=== PATIENT | female | born 1960 | race Caucasian/White ===

== ENCOUNTER 2021-02-18 12:51 | Outpatient (CLI) | payer MEDICAID, SELFPAY ==
--- NOTE | 2021-02-18 13:10 | MM_ITS ---
WS: [id number] BILATERAL SCREENING DIGITAL MAMMOGRAM WITH CAD HISTORY: SCREENING COMPARISON: 10/13/2019 and 10/04/2019 and 11/05/2011 Bilateral CC and MLO views submitted. Computer aided detection analyzed. Breast composition: The breasts are almost entirely fatty. No suspicious masses, microcalcifications or architectural distortion. Benign calcification in the anterior RIGHT breast. Benign lymph node upp er outer quadrant of the LEFT breast. MM/[place] [id number] IMPRESSION: BI-RADS: 2-Benign FOLLOW UP: 1 Year Follow-up
== END 2021-02-18 12:52 | disposition home or self-care (01) ==
LOC: RADSHAW 12:56
PROVIDERS: PCP Nurse Practitioner Family; Visit Provider Nurse Practitioner Family
DX: Z12.31 Encounter for screening mammogram for malignant neoplasm of breast (principal)
CPT/HCPCS: 77067

== ENCOUNTER 2022-11-27 09:18 | Outpatient (CLI) | payer MEDICAID, SELFPAY ==
--- NOTE | 2022-11-27 09:31 | MM_ITS ---
WS: [id number] BILATERAL SCREENING DIGITAL TOMOSYNTHESIS MAMMOGRAM WITH CAD HISTORY: SCREENING COMPARISON: 02/18/2021, 10/13/2019 Bilateral CC and MLO views with tomosynthesis and synthetic mammography submitted. Computer aided det ection analyzed. Breast composition: There are scattered areas of fibroglandular density. No suspicious masses, microc alcifications or architectural distortion. Stable lymph node upper outer quadrant LEFT breast. IMPRESSION: MM/[place] [id number] BI-RADS: 2-Benign FOLLOW UP: 1 Year Follow-up
== END 2022-11-27 09:19 | disposition home or self-care (01) ==
LOC: RAD 09:19
PROVIDERS: PCP Nurse Practitioner Family; Visit Provider Nurse Practitioner Family
DX: Z12.31 Encounter for screening mammogram for malignant neoplasm of breast (principal)
CPT/HCPCS: 77063; 77067

== ENCOUNTER 2023-12-02 09:27 | Outpatient (CLI) | payer MEDICARE, MEDICAID, SELFPAY ==
--- NOTE | 2023-12-02 09:40 | MM_ITS ---
WS: [id number] BILATERAL SCREENING DIGITAL TOMOSYNTHESIS MAMMOGRAM WITH CAD HISTORY: SCREENING COMPARISON: 11/27/2022, 02/18/2021 Bilateral CC and MLO views with tomosynthesis and synthetic mammography submitted. Computer aided det ection analyzed. Breast composition: The breasts are almost entirely fatty. No suspicious masses, microcalcifications or architectural distortion. Benign scattered calcifications in each breast. Stable lymph node upper outer quadrant LEFT breast. MM/MM scr BI tomosynthesis [id number] IMPRESSION: BI-RADS: 2 - Benign. FOLLOW UP: 1 Year Follow-up
== END 2023-12-02 09:28 | disposition home or self-care (01) ==
LOC: RAD 09:29
PROVIDERS: PCP Nurse Practitioner Family; Visit Provider Nurse Practitioner Family
DX: Z12.31 Encounter for screening mammogram for malignant neoplasm of breast (principal); R92.313 Mammographic fatty tissue density, bilateral breasts; R92.1 Mammographic calcification found on diagnostic imaging of breast
CPT/HCPCS: 77063; 77067

== ENCOUNTER 2024-12-01 21:45 | Inpatient (IN) | payer OTHER, MEDICAID, SELFPAY ==
--- OUTSIDE RECORDS SUMMARY | 2024-11-30 10:40 | XMS_ITS | Encounter Summary ---
Author Organization [facility] Address [address] [place] [address] Care Team Providers Care Regional Education Manager Name Role Phone Antoinette Wheatley MD Primary Care Provider +1- [phone] Reason for Visit * Reason Comments Allergies Seasonal Encounter Details Date Type Department Care Team (Late st Contact Info) Description 11/30/2024 10:40 AM CDT Office Visit [facility] Family Medicine [address] [address] Angela Cooper, [facility] [address] [place] [address] Pleurisy (Primary Dx) Social History Tobacco Use Types Packs/Day Years Used Date Smoking Tobacco: Former Cigarettes 0.5 15 Q uit: 05/25/2024 Smokeless Tobacco: Former Chew Quit: 02/16/2007 Tobacco Cessation:Counseling Given: No Alcohol Use Standard Drinks/Week Comments No 0 (1 standard drink = 0.6 oz pur e alcohol) Feeling Safe Answer Date Recorded Are you in a relationship wi th someone who hurts you emotionally and/or physically? 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 Gender Identity Not on file Sexual Orientation Not on file documented as of this encounter Last Filed Vital Signs Vital Sign Reading Time Taken Comments Blood Pressure 122/68 11/30/2024 10:37 AM CDT Pulse 102 11/30/2024 10:44 AM CDT Temperature 36.7 C (98.1 F) 11/30/2024 10:37 AM CDT Respiratory Rate 18 11/30/2024 10:37 AM CDT Oxygen Saturation 98% 11/30/2024 10:37 AM CDT Inhaled Oxygen Concentration - - Weight 73.1 kg (161 lb 3.2 oz) 11/30/2024 10:37 AM CDT Height 152.4 cm (5') 11/30/2024 10:37 AM CDT Body Mass Index 31.48 11/30/2024 10:37 AM CDT documented in this encounter Progress Notes * Angela Cooper FNP - 11/30/2024 11:12 AM CDT Images from the original note were not included. HISTORY OF PRESENT ILLNESS: Chief Complaint Patient presents with Allergies Seasonal Subjective History of Present Illness The patient is a 64-year-old female who presents to the clinic for follow-up. She reports experiencing fatigue and pain, described as a stabbing sensation extending from her chest to her back. This discomfort began after exposure to a plant identified as PISTIS [employer] using a scanner. She did not burn the plant but noticed its strong aroma and did not wear gloves while handling it. Symptoms began suddenly, occurring a day after exposure. She recalls an incident at [employer] where she had to pause after walking only 25 steps due to pain and shortness of breath. Additionally, she felt extremely fatigued after unloading her car, necessitating a two-hour rest period. She has been monitoring her heart rate and step count. She is not experiencing any coughing but notes an increase in nasal discharge. She has been using allergy medication and an inhaler, even resorting to the latter during her visit to the park. REVIEW OF SYSTEMS Review of Systems Constitutional: Negative for activity change, appetite change and fatigue. Respiratory: Positive for chest tightness. Negative for cough, shortness of breath and wheezing. Cardiovascular: Negative for chest pain and palpitations. Gastrointestinal: Negative for abdominal pain, constipation, diarrhea, nausea and vomiting. Musculoskeletal: Negative for arthralgias and myalgias. Skin: Negative for color change. Neurological: Negative for dizziness, weakness, light-headedness and headaches. Psychiatric/Behavioral: Negative for sleep disturbance. Objective PHYSICAL EXAM BP 122/68 Pulse (!) 102 Temp 98.1 ??F (36.7 ??C) (Temporal) Resp 18 Ht 5' (1.524 m) Wt 73.1 kg (161 lb 3.2 oz) SpO2 98% BMI 31.48 kg/m?? Physical Exam Vitals reviewed. Constitutional: General: She is not in acute distress. Appearance: Normal appearance. HENT: Head: Normocephalic and atraumatic. Right Ear: External ear normal. Left Ear: External ear normal. Eyes: Conjunctiva/sclera: Conjunctivae normal. Pulmonary: Effort: Pulmonary effort is normal. Chest: Chest wall: Tenderness (with deep breathing) present. Musculoskeletal: General: Normal range of motion. Cervical back: Neck supple. Skin: General: Skin is warm. Findings: No rash. Neurological: Mental Status: She is alert and oriented to person, place, and time. Psychiatric: Mood and Affect: Mood normal. Behavior: Behavior normal. Results ASSESSMENT and PLAN: Orders Placed This Encounter XR CHEST PA AND LATERAL 2 VW predniSONE (DELTASONE) 20 mg tablet Assessment & Plan 1. Pleurisy: Acute. - Reports sharp pain with deep breaths and recent exposure to hemlock. - Home Theater Specialist on potential cause of pleurisy and plan to reduce inflammation. - Order x-ray to rule out other potential issues. - Prescribe 5-day course of steroids to reduce inflammation. Follow-up - Follow-up appointment mentioned. KENNETH Delaney, 11/30/2024 11:35 AM The author of this note, patient (or authorized customer engagement representative), and all other persons present consent to the audio recording of this visit for charting documentation purposes. This note was automatically generated by a Generative AI technology ([employer]), reviewed, edited, and finalized by KENNETH Delaney. documented in this encounter Plan of Treatment Upcoming Encounters Date Type Department Care Team (Late st Contact Info) Description 04/18/2025 11:30 AM HIGH PRESSURE KETTLE OPERATOR Telemed [facility] [place] [address] [place] [phone] Alejandrina Urbina NP [address] [place] [address] 07/03/2025 2:45 PM CDT Office Visit [facility] Heart and Vascular At [facility] [address] [place] [address] Jaguar Tian MD [address] [facility] [address] [address] [place] [address] documented as of this encounter Results * XR CHEST PA AND LATERAL 2 VW (11/30/2024 12:03 PM CDT) Anatomical Region Laterality Modality Chest Computed Radiogr aphy 11/30/2024 12:0 3 PM CDT Impressions 11/30/2024 3:11 PM CDT IMPRESSION: See below. Exam: XR CHEST PA AND LATERAL 2 VW Date/Time of Exam: 11/30/2024 12:03 PM Reason For Exam: See Diagnosis. Diagnosis: Pleurisy. Prior: 07/19/2024 Findings: The cardiomediastinal silhouette is normal. No acute focal airspace disease, pleural effusion, or pneumothorax. No acute osseous abnormality.Thoracic spondylosis. IMPRESSION: No acute cardiopulmonary disease. Narrative Procedure Note Baljinder Demarco, DO - 11/30/2024 IMPRESSION: See below. Exam: XR CHEST PA AND LATERAL 2 VW Date/Time of Exam: 11/30/2024 12:03 PM Reason For Exam: See Diagnosis. Diagnosis: Pleurisy. Prior: 07/19/2024 Findings: The cardiomediastinal silhouette is normal. No acute focal airspace disease, pleural effusion, or pneumothorax. No acute osseous abnormality.Thoracic spondylosis. IMPRESSION: No acute cardiopulmonary disease. Angela COOPER DIAGNOSTIC IMAGING ORDERABLES Fi nal Result documented in this encounter Visit Diagnoses Diagnosis Pleurisy- Primary Pleurisy without mention of effusion or current tuberculosis Pleurisy Pleurisy without mention of effusion or current tuberculosis documented in this encounter Care Teams Regional Education Manager Relationship Specialty Start Date End Date Antoinette Wheatley MD [address] [phone] PCP - General Family Practice 04/17/23 documented as of this encounter
--- OUTSIDE RECORDS SUMMARY | 2024-11-30 11:55 | XMS_ITS | Encounter Summary ---
Author Organization [facility] Address [address] [place] [address] Care Team Providers Care News Technical Director Name Role Phone Antoinette Wheatley MD Primary Care Provider [phone]- [phone] Encounter Details Date Type Department Care Team (Latest Contact Info) Description 11/30/2024 11:55 AM CDT - 11/30/2024 11:59 PM CDT Hospital Encounter [facility] [address] [place] [address] Angela Cooper, KENNETH [address] [place] [address] Arrived Discharge Disposition: Home or Self Care Social History Tobacco Use Types Packs/Day Years Used Date Smoking Tobacco: Former Cigarettes 0.5 15 Q uit: 05/25/2024 Smokeless Tobacco: Former Chew Quit: 02/16/2007 Alcohol Use Standard Drinks/Week Comments No 0 (1 standard drink = 0.6 oz pur e alcohol) Feeling Safe Answer Date Recorded Are you in a relationship wi th someone who hurts you emotionally and/or physically? 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 10 Tablet 11/30/2024 cetirizine (ZyrTEC) 10 mg tabletIndications: Chronic allergic rhinitis Take 1 tablet by mouth once daily 100 Tablet 3 10/18/2024 azelastine (ASTELIN) 137 mcg/actuation nasal sprayIndications:C hronic rhinitis Administer 2 Sprays in each nostril 2 times daily. 30 mL 11 10/18/2024 albuterol sulfate HFA 90 mcg/actuation aerosol inhalerIndications :Chronic obstructive pulmonary disease, unspecified COPD type (CMS/HCC),Panlobul ar emphysema Take 2 Puffs by inhalation every 6 hours as needed for Shortness of Breath. 18 Gram 5 10/13/2024 mometasone-formote rol (Dulera) 200-5 mcg/actuation inhalerIndications :Chronic obstructive pulmonary disease with acute exacerbation (CMS/HCC) Take 2 Puffs by inhalation 2 times daily. 13 Gram 3 10/07/2024 clobetasoL (TEMOVATE) 0.05 % CreamIndications:V aginal itching Use twice weekly as needed 60 Gram 2 08/11/2024 atorvastatin (LIPITOR) 20 mg tablet Take 1 Tablet (20 mg) by mouth daily. 100 Tablet 3 07/04/2024 aspirin (ECOTRIN EC) 81 mg Tablet, Delayed Release (E.C.) Take 1 Tablet (81 mg) by mouth daily. 90 Tablet 4 07/04/2024 omeprazole (PriLOSEC) 20 mg Capsule, Delayed Release(E.C.)Indic ations:Gastroesoph ageal reflux disease without esophagitis Take 1 Capsule (20 mg) by mouth daily. 100 Capsule 3 03/25/2024 albuterol (PROVENTIL,VENTOLI N) 2.5 mg /3 mL (0.083 %) Solution for NebulizationIndica tions:Chronic obstructive pulmonary disease, unspecified COPD type (CMS/HCC),Panlobul ar emphysema USE 3 ML VIA NEBULIZER EVERY 4 HOURS 540 mL 2 11/04/2023 montelukast (SINGULAIR) 10 mg tabletIndications: Chronic allergic rhinitis TAKE 1 TABLET(10 MG) BY MOUTH DAILY AT BEDTIME 90 Tablet 1 10/20/2023 ibuprofen (MOTRIN) 800 mg tablet TAKE 1 TABLET(800 MG) BY MOUTH EVERY 6 HOURS NEEDED FOR PAIN 60 Tablet 1 02/18/2023 acetaminophen (TYLENOL) 500 mg tablet Take 1,000 mg by mouth every 6 hours as needed. documented as of this encounter Plan of Treatment Upcoming Encounters Date Type Department Care Team (Late st Contact Info) Description 04/18/2025 11:30 AM CALCULATION CLERK Telemed [facility] Tele[facility] - [place] [address] [place] [phone] Alejandrina Urbina NP [address] [place] [address] 07/03/2025 2:45 PM CDT Office Visit [facility] Heart and Vascular At [facility] [address] [place] [phone] Jaguar Tian MD [address] [place] [address] documented as of this encounter Procedures Procedure Name Priority Date/Time Associated Diagnosis Comments XR CHEST PA AND LATERAL 2 VW Routine 11/30/2024 12:03 PM CDT Pleurisy documented in this encounter Results * XR CHEST PA [...] acute cardiopulmonary disease. Narrative Procedure Note Baljinder Demarco DO - 11/30/2024 IMPRESSION: See below. Exam: XR CHEST PA AND LATERAL 2 VW Date/Time of Exam: 11/30/2024 12:03 PM Reason For Exam: See Diagnosis. Diagnosis: Pleurisy. Prior: 07/19/2024 Findings: The cardiomediastinal silhouette is normal. No acute focal airspace disease, pleural effusion, or pneumothorax. No acute osseous abnormality.Thoracic spondylosis. IMPRESSION: No acute cardiopulmonary disease. Angela Cooper B[employer]INGUAL [employer] DIAGNOSTIC IMAGING ORDERABLES Fi nal Result documented in this encounter Visit Diagnoses Diagnosis Pleurisy Pleurisy without mention of effusion or current tuberculosis documented in this encounter Care Teams News Technical Director Relationship Specialty Start Date End Date Antoinette Wheatley MD [address] [phone] PCP - General Family Practice 04/17/23 documented as of this encounter
--- NOTE | 2024-12-01 21:41 | XRR_ITS ---
PROCEDURE INFORMATION: Exam: XR Chest Exam date and time: 12/01/2024 10:01 PM Age: 64 years old Clinical indication: Pain; Chest pressure; Additional info: Cp TECHNIQUE: Imaging protocol: Radiologic exam of the chest. Views: 1 view. COMPARISON: No relevant prior studies available. FINDINGS: Lungs: Unremarkable. No consolidation. Pleural spaces: Unremarkable. No pleural effusion. No pneumothorax. Heart/Mediastinum: Unremarkable. No cardiomegaly. Bones/joints: Unremarkable. XR/XR chest 1V portable [id number] IMPRESSION: No acute findings.
--- NOTE | 2024-12-01 21:47 | ECG_ITS ---
[facility] Test Date: 2024-12-01 Pat Name: Deyanira Colin Department: Room: Gender: Female Hotel Server: : 1960 Requested By: Esdras Collazo Order Number: [id number] Gary MD: Thaddeus Levi M.D. Measurements Intervals [place] Rate: 119 P: 54 KS: 128 QRS: 51 QRSD: 69 T: 51 QT: 289 QTc: 407 Interpretive Statements SINUS TACHYCARDIA MODERATE ST DEPRESSION [0.05+ mV ST DEPRESSION] No previous ECG available for comparison Electronically Signed On 12-03-2024 12:01:43 CDT by Thaddeus Levi M.D. [email or web address]
[2024-12-01 21:51] VITALS: BP 126/55; PULSE 119; RESP 18; TEMP 36.6; O2SAT 98; BMI 30.7
--- OUTSIDE RECORDS SUMMARY | 2024-12-01 21:53 | XMS_ITS | Encounter Summary ---
Author Organization [facility] Address [address] [place] [address] Care Team Providers Care Roller Leveler Name Role Phone Cosmo Hand MD Primary Care Provider [phone] [phone] Reason for Referral * Outpatient Services (Routine) - Closed Specialty Diagnoses / Procedures Referred By Rebecca saldana Referred To Contact Radiology Diagnoses Other screening mammogram Procedures MAMMO DIGITIZED STUDY Diane Payne APRN NO ADDRESS ON FILE [facility] [address] [place] [address] Phone: tel: fax: Referral ID Status Reason Start Date Expiration Date Visits Re quested Visits Authorized [id number] Closed 10/30/2011 10/29/2012 1 1 Encounter Details Date Type Department Care Team (Late st Contact Info) Description 10/30/2011 Ancillary Orders [facility] Family Medicine [place] [address] [facility] [facility] [address] [place] [phone] Diane Payne APRN NO ADDRESS ON FILE Other screening mammogram Social History Tobacco Use Types Packs/Day Years Used Date Smoking Tobacco: Every Day Cigarettes 0.3 20 Smokeless Tobacco: Former Quit: 02/16/2007 Alcohol Use Standard Drinks/Week Comments No 0 (1 standard drink = 0.6 oz pur e alcohol) Comments No Sex and Gender Information Value Date Recorded Sex Assigned at Not on file Legal Sex Female 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 Exam was auto-finalized. Procedure Note Rosalinda Orta, RT - 10/30/2011 Order information only. Exam was auto-finalized. Diane Payne APRN DIAGNOSTIC IMAGIN G ORDERABLES Final Result documented in this encounter Visit Diagnoses Diagnosis Other screening mammogram Other screening mammogram documented in this encounter Care Teams Roller Leveler Relationship Specialty Start Date End Date Cosmo Hand MD [address] [facility] [address] [place] [phone] PCP - General Family Practice 03/27/17 documented as of this encounter
--- OUTSIDE RECORDS SUMMARY | 2024-12-01 21:53 | XMS_ITS | Encounter Summary ---
Author Organization [facility] Address [address] [place] [address] Care Team Providers Care Machine Bookkeeper Name Role Phone Cosmo Hand MD Primary Care Provider [phone] -[phone] Reason for Referral * Outpatient Services (Routine) - Closed Specialty Diagnoses / Procedures Referred By Rebecca saldana Referred To Contact Diagnoses Screening mammogram Procedures MAMMO SCREENING BILAT Jasper Mo Jr., MD [address] [place] [address] Phone: tel: fax: Referral ID Status Reason Start Date Expiration Date Visits Re quested Visits Authorized [id number] Closed 07/18/2010 01/14/2011 1 1 Encounter Details Date Type Department Care Team (Late st Contact Info) Description 07/18/2010 Ancillary Orders [facility] Imaging External Read [address] [place] [phone] Jasper Mo Jr., MD [address] [place] [address] Screening mammogram Social History Tobacco Use Types Packs/Day Years Used Date Smoking Tobacco: Never Assessed Comments Unknown Sex and Gender Information Value Date Recorded Sex Assigned at Not on file 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 This examination was reviewed with the aid of a computer-aided detection system(CAD). The breast tissue density is fatty. No significant new findings since the prior mammogram(s). Procedure Note Caron Fowler MD - 07/19/2010 Bilateral Mammogram Reason for Exam: Screening Comparison: Comparison is made with the prior exam(s) dated 08.09.08 Findings: Bilateral CC and MLO views were obtained. This examination was reviewed with the aid of a computer-aided detectionsystem(CAD). The breast tissue density is fatty. No significant new findings since the prior mammogram(s). Jasper Mo Jr., MD MAMMO ORDERABLES Final Result documented in this encounter Visit Diagnoses Diagnosis Screening mammogram Other screening mammogram documented in this encounter Care Teams Machine Bookkeeper Relationship Specialty Start Date End Date Cosmo Hand MD [address] [phone] PCP - General Family Practice 03/27/17 documented as of this encounter
--- OUTSIDE RECORDS SUMMARY | 2024-12-01 21:53 | XMS_ITS | Encounter Summary ---
Author Organization [facility] Address [address] [place] [address] Care Team Providers Care Receiving Worker Name Role Phone Cosmo Hand MD Primary Care Provider [phone] [phone] Reason for Referral * Outpatient Services (Routine) - Closed Specialty Diagnoses / Procedures Referred By Rebecca saldana Referred To Contact Radiology Diagnoses Other screening mammogram Procedures MAMMO DIGITIZED STUDY Diane Payne APRN NO ADDRESS ON FILE [facility] [address] [place] [address] Phone: tel: fax: Referral ID Status Reason Start Date Expiration Date Visits Re quested Visits Authorized [id number] Closed 10/30/2011 10/29/2012 1 1 Encounter Details Date Type Department Care Team (Late st Contact Info) Description 10/30/2011 Ancillary Orders [facility] Family Medicine [place] [address] [facility] [address] [place] [phone] Diane Payne APRN NO ADDRESS ON FILE [...] on file Legal Sex Female 6:26 AM OFFICE MESSENGER Gender Identity Not on file Sexual Orientation Not on file Occupation Industry Job Start Date Job End Date Not on file Not on file Not on file Not on file documented as of this encounter Plan of Treatment Not on file documented as of this encounter Results * MAMMO DIGITIZED STUDY (07/17/2010 4:17 PM CDT) Narrative Rosalinda Orta, RT - 10/30/2011 4:17 PM CDT Order information only. Exam was auto-finalized. Procedure Note Rosalinda Orta, RT - 10/30/2011 Order information only. Exam was auto-finalized. Diane Payne APRN DIAGNOSTIC IMAGIN G ORDERABLES Final Result documented in this encounter Visit Diagnoses Diagnosis Other screening mammogram Other screening mammogram documented in this encounter Care Teams Receiving Worker Relationship Specialty Start Date End Date Cosmo Hand MD [address] [phone] PCP - General Family Practice 03/27/17 documented as of this encounter
--- OUTSIDE RECORDS SUMMARY | 2024-12-01 21:53 | XMS_ITS | Clinical Summary ---
[facility] Address [address] [place] [address] Care Team Providers Care Supervisor Rubber Covering Name Role Phone Antoinette Wheatley MD Primary Care Provider Allergies Active Allergy Reactions Criticality Noted Date Comments Amoxicillin Other (See Comments) 03/03/2011 Causes illness, Amoxicillin-Pot Clavulanate Diarrhea,Nausea and Vomiting Low 03/03/2011 Sulfamethoxazole-Trimet hoprim Rash Low 11/03/2016 Medications acetaminophen (TYLENOL) 500 mg tablet Take 1,000 mg by mouth every 6 hours as needed. Active ibuprofen (MOTRIN) 800 mg tablet TAKE 1 TABLET(800 MG) BY MOUTH EVERY 6 HOURS NEEDED FOR PAIN 60 Tablet 1 4 Active montelukast (SINGULAIR) 10 mg tabletIndications :Chronic allergic rhinitis TAKE 1 TABLET(10 MG) BY MOUTH DAILY AT BEDTIME 90 Tablet 1 4 Active albuterol (PROVENTIL,VENTOL IN) 2.5 mg /3 mL (0.083 %) Solution for NebulizationIndic ations:Chronic obstructive pulmonary disease, unspecified COPD type (CMS/HCC),Panlobu lar emphysema USE 3 ML VIA NEBULIZER EVERY 4 HOURS 540 mL 2 4 Active omeprazole (PriLOSEC) 20 mg Capsule, Delayed Release(E.C.)Rama cations:Gastroeso phageal reflux disease without esophagitis Take 1 Capsule (20 mg) by mouth daily. 100 Capsule 3 5 Active atorvastatin (LIPITOR) 20 mg tablet Take 1 Tablet (20 mg) by mouth daily. 100 Tablet 3 5 Active aspirin (ECOTRIN EC) 81 mg Tablet, Delayed Release (E.C.) Take 1 Tablet (81 mg) by mouth daily. 90 Tablet 4 5 Active clobetasoL (TEMOVATE) 0.05 % CreamIndications: Vaginal itching Use twice weekly as needed 60 Gram 2 5 Active mometasone-formot ventura (Dulera) 200-5 mcg/actuation inhalerIndication s:Chronic obstructive pulmonary disease with acute exacerbation (CMS/HCC) Take 2 Puffs by inhalation 2 times daily. 13 Gram 3 5 Active albuterol sulfate HFA 90 mcg/actuation aerosol inhalerIndication s:Chronic obstructive pulmonary disease, unspecified COPD type (CMS/HCC),Panlobu lar emphysema Take 2 Puffs by inhalation every 6 hours as needed for Shortness of Breath. 18 Gram 5 5 Active cetirizine (ZyrTEC) 10 mg tabletIndications :Chronic allergic rhinitis Take 1 tablet by mouth once daily 100 Tablet 3 5 Active azelastine (ASTELIN) 137 mcg/actuation nasal sprayIndications: Chronic rhinitis Administer 2 Sprays in each nostril 2 times daily. 30 mL 11 5 Active predniSONE (DELTASONE) 20 mg tabletIndications :Pleurisy Take 2 Tablets (40 mg) by mouth daily for 5 days. 10 Tablet 5 12/06/19 25 Active Active Problems Problem Noted Date Diagnosed Date Nonrheumatic aortic valve stenosis 07/04/2024 S/P carpal tunnel release, right wrist 8 Bilateral carpal tunnel syndrome 05/21/2017 Hypothyroidism 05/04/2017 Tooth decay 04/13/2016 History of abscessed tooth 04/13/2016 Chronic headache 04/13/2016 Chronic pansinusitis 04/09/2016 Tobacco use 01/09/2015 Dental disease 06/09/2012 Hypertrophy of nasal turbinates 06/09/2012 Chronic rhinitis 06/09/2012 Acute meniscal tear of knee 10/30/2011 Carpal tunnel syndrome 04/09/2011 GERD (gastroesophageal reflux disease) 2 COPD (chronic obstructive pulmonary disease) Encounters Date Type Department Care Team Description 11/30/2024 11:55 AM CDT - 11/30/2024 11:59 PM CDT Hospital Encounter [facility] [address] [facility] [address] [place] [address] Angela Cooper FNP Arrived Discharge Disposition: Home or Self Care 11/30/2024 10:40 AM CDT Office Visit [facility] [place] [address] [facility] [address] [place] [address] [place] [address] Angela Cooper FNP Pleurisy (Primary Dx) 10/31/2024 Results Follow-Up [facility] [place] [address] [place] [address] [place] [address] Angela Cooper FNP XR DEXA BONE DENSITY AXIAL 1 OR MORE SITES 10/24/2024 11:56 AM CDT - 10/24/2024 11:59 PM CDT Hospital Encounter [facility] [address] [place] [address] Angela Cooper FNP Discharge Disposition: Home or Self Care 10/18/2024 11:30 AM CDT Telemed [facility] - [place] 100 [facility] [address] [place] [address] Alejandrina Urbina NP Chronic bronchitis, unspecified chronic bronchitis type (CMS/HCC) (Primary Dx); Tobacco use disorder, moderate, in early remission; Chronic rhinitis; Post-nasal drainage 10/15/2024 Refill [facility] [place] [address] [place] [address] Angela Cooper FNP Chronic allergic rhinitis 10/13/2024 Orders Only [facility] [place] [address] [facility] [address] [place] [address] [place] [address] Angela Cooper FNP Chronic obstructive pulmonary disease, unspecified COPD type (CMS/HCC); Panlobular emphysema (CMS/HCC) 10/10/2024 Telephone [facility] [address] [place] [address] [place] [address] Angela Cooper FNP Medication Problem 10/07/2024 11:20 AM CDT Office Visit [address] [place] [address] Angela Cooper FNP Encounter for wellness examination (Primary Dx); Chronic obstructive pulmonary disease with acute exacerbation (CMS/HCC); Chronic obstructive pulmonary disease, unspecified COPD type (CMS/HCC); Panlobular emphysema (CMS/HCC); Asymptomatic menopausal state; Tobacco dependence due to cigarettes; Encounter for screening mammogram for malignant neoplasm of breast 10/07/[address] [address] Angela Cooper FNP Medication Assistance 09/21/2024 External Device Data [facility]CTION Provider, Abstract 09/20/2024 External Device Data [facility] Provider, Abstract 09/20/2024 External Device Data [facility] [facility] Provider, Abstract 09/14/2024 Telephone [facility] - [facility] [address] [place] [phone] Jaguar Tian MD Results 09/12/2024 11:32 AM CDT - 09/12/2024 11:59 PM CDT Hospital Encounter [facility] [address] [place] [phone] Jaguar Tian MD Discharge Disposition: Home or Self Care from Last 3 Months Immunizations Immunization Administration Dates Next Due (ADACEL/BOOSTRIX)(10 YR UP) TDAP VACCINE, 0.5ML, IM 05/05/2014 (PFIZER)(12 YR UP) COVID-19 VACCINE - EMERGENCY USE AUTHORIZATION, MRNA, [id number](PF) 30 MCG/0.3 ML IM SUSP 05/31/2020,05/10/2020 (PNEUMOVAX 23)(50 YRS UP) PN EUMOCOCCAL POLYSACCHARIDE (PPV23) 0.5 ML, IM 11/03/2003 INFLUENZA VACCINE HIGH DOSE TRIVALENT SPLIT VIRUS, (65 YR UP), 0.5ML (PF), IM 12/24/2023 INFLUENZA VACCINE QUADRIVALE NT 3 YR UP PF IM 12/26/2022,01/15/2016,12/22/2014,11/14 INFLUENZA VACCINE QUADRIVALE NT 6 MOS UP IM 02/19/2022,04/06/2019 INFLUENZA VACCINE QUADRIVALE NT 6 MOS UP PF IM 11/29/2020,01/05/2020 Influenza Seasonal Unspecifi ed Formulation IM 12/26/2022,02/19/2022,11/29/2020,01/04,04/06/2019,03/02/2018,01/16/2018 ,01/15/2016,12/22/2014,11/14/2013,12/17,11/24/2002,11/18/2001 Influenza Vaccine Split 3+ Yrs PF IM 12/28/2012, 12/05/2011 PNEUMOVAX (PPSV23) pneumococ yonas polysaccharide 23-valent Vaccine 11/03/2003 Zoster Vaccine Live SQ 09/24/2011 Family History * Patient is adopted Medical History Relation Name Comments No Known Problems Daughter Unknown Father UNKNOWN Unknown Maternal Grandfather UNKNOWN Unknown Maternal Grandmother UNKNOWN Other Mother UNKNOWN Adopted no fami ly history Unknown Mother UNKNOWN Unknown Paternal Grandfather UNKNOWN Unknown Paternal Grandmother UNKNOWN Breast Cancer Neg Hx Colon Cancer Neg Hx Relation Name Status Comments Daughter Alive Father UNKNOWN Maternal Grandfather UNKNOWN Maternal Grandmother UNKNOWN Mother UNKNOWN Paternal Grandfather UNKNOWN Paternal Grandmother UNKNOWN Sister UNKNOWN Social History Tobacco Use Types Packs/Day Years [...] on file Legal Sex Female 8:04 AM SLITTER PROCESSED FILM Gender Identity Not on file Sexual Orientation Not on file Last Filed Vital Signs Vital Sign Reading [...] Mass Index 31.48 11/30/2024 10:37 AM CDT Plan of Treatment Upcoming Encounters Date Type Department Care Team (Late st Contact Info) Description 04/18/2025 11:30 AM SLITTER PROCESSED FILM Telemed [facility] - [place] [employer] [address] [place] [phone] Alejandrina Urbina NP [address] [place] [address] 07/03/2025 2:45 PM CDT Office Visit [facility] At [facility] [address] [facility] [address] [place] [address] Jaguar Tian MD [address] [facility] [address] [place] [address] Health Maintenance Due Date Last Done Comments Pre-Diabetes and Diabetes Screening 1960 FIT/FOBT Q 1 YEAR (AUTO ORDER) 02/25/1976 COLORECTAL CANCER SCREENING (AUTO ORDER) 2003 COLORECTAL SCREENING 2003 FIT/FOBT Q 1 year 2003 Flex Sig/CT Colonography Q 5 years 2003 FLEX SIG/CT COLONOGRAPHY Q 5 YEARS (AUTO ORDER) 12/27/2003 12/26/1998, 12/26/1998 PNEUMOCOCCAL VACCINE 50+ YEA RS (2 of 2 - PCV) 11/02/2004 11/03/2003, 11/03/2003 RSV VACCINE (60+ or ) (1 - Risk 50-74 years 1-dose series) 02/25/2008 ZOSTER VACCINE (2 of 3) 11/19/2011 09/24/2011 DTAP/TDAP/TD VACCINES (2 - T d or Tdap) 05/05/2024 05/05/2014 INFLUENZA VACCINE (#1) 2024 4, 12/26/2022, 12/26/2022, Additional history exists COVID-19 Vaccine (3 - 2024-2 6 season) 2024 05/31/2020, 05/10/2020 BREAST CANCER SCREENING 12/01/2024 12/02/19 24, 02/18/2021, 10/13/2019, Additional history exists Colorectal Cancer Screening (AUTO ORDER) 06/01/2027 Colorectal Cancer Screening 06/01/2027 FIT-DNA Q 3 years 06/01/2027 05/31/2024, 01/20/2022 FIT/ DNA Q 3 YEARS (AUTO ORDER) 06/01/2027 05/31/2024, 05/31/2024, 01/20/2022, Additional history exists OSTEOPOROSIS SCREENING 10/24/2029 10/24/2024 [place] Preventative Visit/Annual Wellness Visit Completed 10/07/2024, 10/08/2023 Procedures Procedure Name Priority Date/Time Associated Diagnosis Comments XR CHEST PA AND LATERAL 2 VW Routine 11/30/2024 12:03 PM CDT Pleurisy XR DEXA BONE DENSITY AXIAL 1 OR MORE SITES Routine 10/24/2024 12:24 PM CDT Asymptomatic menopausal state ECHO COMPLETE Routine 09/12/2024 12:24 PM CDT Aortic stenosis COLON CANCER SCREEN, STOOL DNA Routine 05/31/2024 12:41 PM CDT Encounter for colorectal cancer screening MAMMO 3D JONO SCREEN BILAT W OR WO CAD Routine 12/02/2023 Screening mammogram, encounter for from Last 3 Months or Most Recently Relevant to Health Maintenance Results * XR CHEST PA AND LATERAL [...] IMPRESSION: No acute cardiopulmonary disease. Angela Cooper [facility] ORDERABLES Fi nal Result * XR DEXA BONE DENSITY AXIAL 1 OR MORE SITES (10/24/2024 12:24 PM CDT) T-SCORE HIP (LEFT) -0.30 -1.0 - 1.0 INTERFACE SYSTEM T-SCORE SPINE 1.00 -1.0 - 1.0 INTER FACE SYSTEM Anatomical Region Laterality Modality Digital Radiogra phy, Mammography 10/24/2024 12:2 5 PM CDT Impressions 10/24/2024 12:40 PM CDT IMPRESSION: Osteopenia (T-score between -1.0 and -2.5). NOF guidelines recommend consideration of FDA-approved medical therapies in patients with FRAX determined 10-year probabilities of hip/major osteoporosis-related fractures equal or greater than 3%/20% respectively. Consider assessing fracture risk using the FRAX analysis tool for guidance of clinical management available online at www.shef.ac.uk/FRAX/. Enter [employer] for Select DXA and the Femoral Neck BMD value. Narrative 10/24/2024 12:40 PM CDT DEXA Evaluation of the Lumbar Spine and Left Proximal Femur DATE/TIME OF EXAM: 10/24/2024 12:24 PM REASON FOR EXAM: See Diagnosis DIAGNOSIS: Asymptomatic menopausal state The following absorptiometry data were obtained. The quality of this examination is acceptable with regards to count density, processed images, data display and lack of important artifacts (including but not limited to motion and attenuation artifacts). RESULTS: LUMBAR SPINE: Levels: L1-L4 BMD (g/cm2): 1.157 T-score: 1.0 Z-score: 2.9 (Please note: If bilateral femur evaluation was performed, only the side with lowest T-score is reported) FEMORAL NECK: BMD (g/cm2): 0.706 T-score: -1.3 Z-score: 0.3 TOTAL HIP: BMD (g/cm2): 0.910 T-score: -0.3 Z-score: 1.1 Procedure Note Curtis Whitney MD - 10/24/2024 DEXA Evaluation of the Lumbar Spine and Left Proximal Femur DATE/TIME OF EXAM: 10/24/2024 12:24 PM REASON FOR EXAM: See Diagnosis DIAGNOSIS: Asymptomatic menopausal state The following absorptiometry data were obtained. The quality of this examination is acceptable with regards to count density, processed images, data display and lack of important artifacts (including but not limited to motion and attenuation artifacts). RESULTS: LUMBAR SPINE: Levels: L1-L4 BMD (g/cm2): 1.157 T-score: 1.0 Z-score: 2.9 (Please note: If bilateral femur evaluation was performed, only the side with lowest T-score is reported) FEMORAL NECK: BMD (g/cm2): 0.706 T-score: -1.3 Z-score: 0.3 TOTAL HIP: BMD (g/cm2): 0.910 T-score: -0.3 Z-score: 1.1 IMPRESSION: Osteopenia (T-score between -1.0 and -2.5). NOF guidelines recommend consideration of FDA-approved medical therapies in patients with FRAX determined 10-year probabilities of hip/major osteoporosis-related fractures equal or greater than 3%/20% respectively. Consider assessing fracture risk using the FRAX analysis tool for guidance of clinical management available online at www.shef.ac.uk/FRAX/. Enter [employer] for Select DXA and the Femoral Neck BMD value. Angela Cooper [facility] ORDERABLES Fi nal Result * ECHO COMPLETE - CONTRAST AND STRAIN IF INDICATED (09/12/2024 12:24 PM CDT) [facility] Signature EJECTION FRACTION 60 INTERFACE SYSTEM 09/12/2024 11:4 9 AM CDT Narrative INTERFACE SYSTEM - 09/13/2024 9:15 AM CDT [facility] Radiology Services - Echocardiology [address] [address] Transthoracic Echocardiography Patient: Deyanira Colin Study ID: [id number] Gender: F : 1960 Age: 64 Room: [facility] Study Date: 09/12/2024 Pt Status: Study Time: 11:49:14 AM CSN #: [id number] Ordering:Jaguar Tian Rail Operator: Julia Diallo Summary and Conclusion: - Left ventricle: Not well visualized. The cavity size is normal. Wall thickness is upper normal to mildly increased. Global systolic function is normal. For Epic reporting: the left ventricular ejection fraction is 60% by visual assessment. Images are inadequate for LV wall motion assessment. Cannot assess LV diastolic function. - Right ventricle: The cavity size is normal. Systolic function is normal. - Aortic valve: Not well visualized. The leaflets are thickened and calcified. There is probably severe stenosis. The peak systolic velocity is 362cm/sec. The mean systolic gradient is 31mm Hg. The valve area is 0.75cm^2. The ratio of LVOT to aortic valve peak velocity is 0.24. - Tricuspid valve: Not well visualized. - Pulmonic valve: Not well visualized. Comparison: Compared to the previous study, aortic stenosishas worsened. Procedure information: Study status: Routine. Procedure: A transthoracic echocardiogram was performed. Image quality was suboptimal. Scanning was performed from the parasternal, apical, subcostal, and suprasternal notch acoustic windows. Study components: M-mode, 2D, complete spectral Doppler, and color Doppler. Height: 152.4cm. Height: 60in. Weight: 70.7kg. Weight: 155.9lb. BMI: 30.4kg/m^2. BSA: 1.76m^2. Study date: 09/12/2024. Study time: 11:49 AM. Cardiac Anatomy: LEFT VENTRICLE: Not well visualized. The cavity size is normal. Wall thickness is upper normal to mildly increased. Global systolic function is normal. For Epic reporting: the left ventricular ejection fraction is 60% by visual assessment. Images are inadequate for LV wall motion assessment. Cannot assess LV diastolic function. RIGHT VENTRICLE: The cavity size is normal. Systolic function is normal. LEFT ATRIUM: The atrium is normal in size. RIGHT ATRIUM: The atrium is normal in size. ATRIAL SEPTUM: Not well visualized. AORTIC VALVE: Not well visualized. The leaflets are thickened and calcified. Mobility is restricted. There is probably severe stenosis. There is no significant regurgitation. MITRAL VALVE: Mobility is not restricted. No evidence for prolapse. There is no evidence for stenosis. There is trivial regurgitation. TRICUSPID VALVE: Not well visualized. Mobility is unrestricted. There is no evidence for stenosis. There is trace regurgitation. PULMONIC VALVE: Not well visualized. There is no evidence for stenosis. There is no significant regurgitation. PERICARDIUM: There is no pericardial effusion. AORTA: Aortic root: The root is not dilated. Measurements Left ventricle Value Left atrium Value FS, LAX 30 % Vol, S 35 ml FS 30 % Vol/bsa, S 20 ml/m^2 EDV 50 ml ESV 21 ml Aortic valve Value EF 58 % Peak v, S 362 cm/sec EDV/bsa 28 ml/m^2 Mean v, S 260 cm/sec ESV/bsa 12 ml/m^2 VTI, S 83.0 cm EF, 1-p A2C 58 % Mean grad, S 31 mm Hg EF, 1-p A4C 55 % Peak grad, S 52 mm Hg EDV, 2-p 61 ml LVOT/AV, VTI ratio 0.22 ESV, 2-p 25 ml SALOMÓN, VTI 0.75 cm^2 EF, 2-p 59 % SALOMÓN/bsa, VTI 0.43 cm^2/m^2 EDV/bsa, 2-p 34 ml/m^2 LVOT/AV, Vpeak ratio 0.24 ESV/bsa, 2-p 14 ml/m^2 EDV, MM Teich. 50 ml Mitral valve Value EF, MM Teich. 58 % Peak E/A ratio 0.83 EDV/bsa, MM Teich. 28 ml/m^2 EF, MM on 2D Teich. 58 % Tricuspid valve Value E/e', lat shashi, TDI 15 TR peak v 254 cm/sec E/e', med shashi, TDI 14 Peak RV-RA grad, S 26 mm Hg E/e', avg, TDI 14 Descending aorta Value LVOT Value Prox Janes diam 1.4 cm Diam, S 2.1 cm Area 3.5 cm^2 Inferior vena cava Value VTI, S 18.0 cm Prox diam, exp 1.4 cm SV 59 ml SV/bsa 34 ml/m^2 Other Value Legend: (L) and (H) ramiro values outside specified reference range. Prepared and Electronically Authenticated Domo Lezama MD Confirmed 09/13/2024 09:14 Procedure Note Domo Lezama MD - 09/13/2024 [facility] Radiology Services - Echocardiology [address] [place] [id number] Transthoracic Echocardiography Patient: Deyanira Colin Study ID:[id number] Gender: F : 1960 Age: 64 Room: [facility] Study Date: 09/12/2024 Pt Status: Study Time: 11:49:14 AM CSN #: [id number] Ordering:Jaguar Tian Rail Operator: Julia Diallo Summary and Conclusion: - Left ventricle: Not well visualized. The cavity size is normal. Wall thickness is upper normal to mildly increased. Global systolic functionis normal. For Epic reporting: the left ventricular ejection fraction is60% by visual assessment. Images are inadequate for LV wall motionassessment. Cannot assess LV diastolic function. - Right ventricle: The cavity size is normal. Systolic function isnormal. - Aortic valve: Not well visualized. The leaflets are thickened andcalcified. There is probably severe stenosis. The peak systolic velocity [id number]. The mean systolic gradient is 31mm Hg. The valve area is 0.75cm^2. Theratio of LVOT to aortic valve peak velocity is 0.24. - Tricuspid valve: Not well visualized. - Pulmonic valve: Not well visualized. Comparison: Compared to the previous study, aortic stenosishasworsened. Procedure information: Study status: Routine. Procedure: Atransthoracic echocardiogram was performed. Image quality was suboptimal. Scanning was performed from the parasternal, apical, subcostal, and suprasternalnotch acoustic windows. Study components: M-mode, 2D, completespectral Doppler, and color Doppler. Height: 152.4cm. Height: 60in. Weight: 70.7kg. Weight: 155.9lb. BMI: 30.4kg/m^2. BSA: 1.76m^2. Studydate: 09/12/2024. Study time: 11:49 AM. Cardiac Anatomy: LEFT VENTRICLE: Not well visualized. The cavity size is normal. Wall thickness is upper normal to mildly increased. Global systolic functionis normal. For Epic reporting: the left ventricular ejection fraction is 60%by visual assessment. Images are inadequate for LV wall motion assessment.Cannot assess LV diastolic function. RIGHT VENTRICLE: The cavity size is normal. Systolic function isnormal. LEFT ATRIUM: The atrium is normal in size. RIGHT ATRIUM: The atrium is normal in size. ATRIAL SEPTUM: Not well visualized. AORTIC VALVE: Not well visualized. The leaflets are thickened andcalcified. Mobility is restricted. There is probably severe stenosis. There is no significant regurgitation. MITRAL VALVE: Mobility is not restricted. No evidence for prolapse.There is no evidence for stenosis. There is trivial regurgitation. TRICUSPID VALVE: Not well visualized. Mobility is unrestricted. There isno evidence for stenosis. There is trace regurgitation. PULMONIC VALVE: Not well visualized. There is no evidence forstenosis. There is no significant regurgitation. PERICARDIUM: There is no pericardial effusion. AORTA: Aortic root: The root is not dilated. Measurements Left ventricle Value Left atrium Value FS, LAX 30 % Vol, S 35 ml FS 30 % Vol/bsa, S 20 ml/m^2 EDV 50 ml ESV 21 ml Aortic valve Value EF 58 % Peak v, S 362 cm/sec EDV/bsa 28 ml/m^2 Mean v, S 260 cm/sec ESV/bsa 12 ml/m^2 VTI, S 83.0 cm EF, 1-p A2C 58 % Mean grad, S 31 mm Hg EF, 1-p A4C 55 % Peak grad, S 52 mm Hg EDV, 2-p 61 ml LVOT/AV, VTI ratio 0.22 ESV, 2-p 25 ml SALOMÓN, VTI 0.75 cm^2 EF, 2-p 59 % SALOMÓN/bsa, VTI 0.43 cm^2/m^2 EDV/bsa, 2-p 34 ml/m^2 LVOT/AV, Vpeak ratio 0.24 ESV/bsa, 2-p 14 ml/m^2 EDV, MM Teich. 50 ml Mitral valve Value EF, MM Teich. 58 % Peak E/A ratio 0.83 EDV/bsa, MM Teich. 28 ml/m^2 EF, MM on 2D Teich. 58 % Tricuspid valve Value E/e', lat shashi, TDI 15 TR peak v 254 cm/sec E/e', med shashi, TDI 14 Peak RV-RA grad, S 26 mm Hg E/e', avg, TDI 14 Descending aorta Value LVOT Value Prox Janes diam 1.4 cm Diam, S 2.1 cm Area 3.5 cm^2 Inferior vena cava Value VTI, S 18.0 cm Prox diam, exp 1.4 cm SV 59 ml SV/bsa 34 ml/m^2 Other Value Legend: (L) and (H) ramiro values outside specified reference range. Prepared and Electronically Authenticated Domo Lise JONES Confirmed 09/13/2024 09:14 Jaguar Tian MD ORDERABLES Final Result INTERFACE SYSTEM Refer to clinic/hospital department * (ABNORMAL) COLON CANCER SCREEN, STOOL DNA (05/31/2024 12:41 PM CDT) COLOGUARD RESULT Positive( A) Negative [employer] Comment: The Cologuard (TM) test was performed on this specimen. POSITIVE TEST RESULT. A positive Cologuard result should be followed with a colonoscopy or visual examination of the colon. The normal value (reference range) for this assay is negative. TEST DESCRIPTION: Composite algorithmic analysis of stool DNA-biomarkers with hemoglobin immunoassay. Quantitative values of individual biomarkers are not reportable and are not associated with individual biomarker result reference ranges. Cologuard is intended for colorectal cancer screening of adults of either sex, 45 years or older, who are at average-risk for colorectal cancer (CRC). Cologuard has been approved for use by the U.S. FDA. The performance of Cologuard was established in a cross sectional study of average-risk adults aged 50-84. Cologuard performance in patients ages 45 to 49 years was estimated by sub-group analysis of near-age groups. Colonoscopies performed for a positive result may find as the most clinically significant lesion: colorectal cancer [4.0%], advanced adenoma (including sessile serrated polyps greater than or equal to 1cm diameter) [20%] or non- advanced adenoma [31%]; or no colorectal neoplasia [45%]. These estimates are derived from a prospective cross-sectional screening study of 10,000 individuals at average risk for colorectal cancer who were screened with both Cologuard and colonoscopy. (Chadwick Rae. et al, N Engl J Med 2014;370(14):1040-4993.) Cologuard may produce a false negative or false positive result (no colorectal cancer or precancerous polyp present at colonoscopy follow up). A negative Cologuard test result does not guarantee the absence of CRC or advanced adenoma (pre-cancer). The current Cologuard screening interval is every 3 years. ([place] [employer] and U.S. Multi-Society Task Force). Cologuard performance data in a 10,000 patient pivotal study using colonoscopy as the reference method can be accessed at the following location: www.CUPP Computing/results. Additional description of the Cologuard test process, warnings and precautions can be found at [email or web address]. Stool STOOL SPECIMEN / Unknown 05/31/2024 12:41 PM CDT 06/01/2024 3:10 PM CDT us Angela Cooper IT TECHNICAL SUPPORT SPECIALIST BODY FLUIDS AND STOOLS Final Res ult [employer] CLIA # [id number] [address], [address] [place] [address] * MAMMO 3D JONO SCREEN BILAT W OR WO CAD (12/02/2023) Anatomical Region Laterality Modality Breast Bilateral Mammography Angela Cooper IT TECHNICAL SUPPORT SPECIALIST MAMMO ORDERABLES Edited Result - Final from Last 3 Months or Most Recently Relevant to Health Maintenance Insurance MEDICAID [place] DUAL COMPLETE HMO [facility] [id number] Care Teams Supervisor Rubber Covering Relationship Specialty Start Date End Date Antoinette Wheatley MD [address] [facility] [address] [place] [phone] PCP - General Family Practice 04/17/23
--- OUTSIDE RECORDS SUMMARY | 2024-12-01 21:54 | XMS_ITS | Encounter Summary ---
Author Organization [facility] Address [address] [place] [address] Care Team Providers Care Special Education Teaching Assistant Name Role Phone Cosmo Hand MD Primary Care Provider +1 -[phone] Encounter Details Date Type Department Care Team (Latest Contact Info) Description 07/07/2002 Outpatient Historical [facility] Jasper Mo Jr., MD [facility] [place] [address] Periapical abscess (Primary Dx); ACUTE SINUSITIS NOS; CHRONIC AIRWAY OBSTRUCTION NEC (CMS/HCC); OSTEOARTHROS NOS-UNSPEC Social History Tobacco Use Types Packs/Day Years Used Date Smoking Tobacco: Never Assessed Comments Unknown Sex and Gender Information Value Date Recorded Sex Assigned at Not on file Legal 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 Gender Identity Not on file Sexual Orientation Not on file documented as of this encounter Plan of Treatment Not on file documented as of this encounter Visit Diagnoses Diagnosis Periapical abscess- Primary Periapical abscess without sinus Acute sinusitis, unspecified Chronic airway obstruction, not elsewhere classified (CMS/HCC) Chronic airway obstruction, not elsewhere classified Osteoarthrosis, unspecified whether generalized or localized, unspecified site documented in this encounter Care Teams Special Education Teaching Assistant Relationship Specialty Start Date End Date Cosmo Hand MD [address] [facility] [address] [place] [address] PCP - General Family Practice 03/27/17 documented as of this encounter
--- OUTSIDE RECORDS SUMMARY | 2024-12-01 21:54 | XMS_ITS | Encounter Summary ---
Author Organization [facility] Address [address] 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
--- OUTSIDE RECORDS SUMMARY | 2024-12-01 21:54 | XMS_ITS | Encounter Summary ---
Author Organization [facility] Address [address] [place] [address] Care Team Providers Care Senior Credit Officer Name Role Phone Cosmo Hand MD Primary Care Provider +1 -[phone] Encounter Details Date Type Department Care Team (Latest Contact Info) Description 09/13/2001 Outpatient Historical [facility] Jasper Mo Jr., MD [address] [place] [address] GENERAL OSTEOARTHROSIS (Primary Dx); DEPRESSIVE DISORDER NEC Social History Tobacco Use Types Packs/Day Years Used Date Smoking Tobacco: Never Assessed Comments Unknown Sex and Gender Information Value Date Recorded Sex Assigned at Not on file Legal Sex Female 6:26 AM 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
--- OUTSIDE RECORDS SUMMARY | 2024-12-01 21:54 | XMS_ITS | Encounter Summary ---
Author Organization [facility] Address [address] [facility] Attn: [place] [address] Care Team Providers Care Investigations Consultant Name Role Phone Cosmo Hand MD Primary Care Provider +1 -[phone] Encounter Details Date Type Department Care Team (Late st Contact Info) Description 03/08/1999 Outpatient Historical Jasper Mo Jr., MD [address] [place] [phone] Social History Tobacco Use Types Packs/Day Years Used Date Smoking Tobacco: Never Assessed Comments Unknown Sex and Gender Information Value Date Recorded Sex Assigned at Not on file Legal Sex Female 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
--- OUTSIDE RECORDS SUMMARY | 2024-12-01 21:54 | XMS_ITS | Encounter Summary ---
Author Organization [facility] Address [address] [place] [address] Care Team Providers Care Cut And Cover Line Worker Name Role Phone Cosmo Hand MD Primary Care Provider +1 [phone] Encounter Details Date Type Department Care Team (Latest Contact Info) Description 05/30/2002 Outpatient Historical [facility] Jasper Mo Jr., MD [address] [place] [phone] ALLERGIC RHINITIS NOS (Primary Dx); CHRONIC AIRWAY OBSTRUCTION NEC (CMS/[facility]); TOBACCO USE DISORDER; OSTEOARTHROS NOS-UNSPEC Social History Tobacco Use Types Packs/Day Years Used Date Smoking Tobacco: Never Assessed Comments Unknown Sex and Gender Information Value Date Recorded Sex Assigned at Not on file Legal Sex Female 6:26 AM DIAGNOSTIC TECH Gender Identity Not on file Sexual Orientation Not on file documented as of this encounter Plan of Treatment Not on file documented as of this encounter Visit Diagnoses Diagnosis Allergic rhinitis, cause unspecified- Primary Chronic airway obstruction, not elsewhere classified (CMS/HCC) Chronic airway obstruction, not elsewhere classified Tobacco use disorder Osteoarthrosis, unspecified whether generalized or localized, unspecified site documented in this encounter Care Teams Cut And Cover Line Worker Relationship Specialty Start Date End Date Cosmo Hand MD [address] [place] [address] PCP - General Family Practice 03/27/17 documented as of this encounter
--- OUTSIDE RECORDS SUMMARY | 2024-12-01 21:54 | XMS_ITS | Encounter Summary ---
Author Organization [facility] Address [address] [place] [address] Care Team Providers Care Digital Producer Name Role Phone Cosmo Hand MD Primary Care Provider +1 [phone] Encounter Details Date Type Department Care Team (Late st Contact Info) Description 08/14/2008 Ancillary Orders [facility] Imaging External Read [address] [place] [address] Jasper Mo Jr., MD [address] [place] [phone] Screening Mammogram Social History Tobacco Use Types Packs/Day Years Used Date Smoking Tobacco: Never Assessed Comments Unknown Sex and Gender Information Value Date Recorded Sex Assigned at Not on file Legal Sex Female 6:26 AM COLLATOR HAND Gender Identity Not on file Sexual Orientation Not on file documented as of this encounter Plan of Treatment Not on file documented as of this encounter Results * MAMMO SCREENING BILAT (08/14/2008 2:42 PM CDT) Anatomical Region Laterality Modality Breast Bilateral Mammography Narrative 08/15/2008 8:15 AM CDT Bilateral Mammogram Reason for Exam: Screening Comparison: Comparison is made with the prior exam(s) dated 1998 Findings: Bilateral CC and MLO views were obtained. This examination was reviewed with the aid of a computer-aided detection system(CAD). The breast tissue density is fatty. No significant new findings since the prior mammogram(s). Procedure Note Lucas Martell MD - 08/15/2008 Bilateral Mammogram Reason for Exam: Screening Comparison: Comparison is made with the prior exam(s) dated 1998 Findings: Bilateral CC and MLO views were obtained. This examination was reviewed with the aid of a computer-aided detectionsystem(CAD). The breast tissue density is fatty. No significant new findings since the prior mammogram(s). us Jasper Mo Jr., MD MAMMO ORDERABLES Final Result documented in this encounter Visit Diagnoses Diagnosis Screening mammogram Other screening mammogram documented in this encounter Care Teams Digital Producer Relationship Specialty Start Date End Date Cosmo Hand MD [address] [address] PCP - General Family Practice 03/27/17 documented as of this encounter
--- OUTSIDE RECORDS SUMMARY | 2024-12-01 21:54 | XMS_ITS | Encounter Summary ---
Author Organization [facility] Address [address] [place] [address] Care Team Providers Care Run Lead Name Role Phone Antoinette Wheatley MD Primary Care Provider [phone]- [phone] Reason for Visit * Reason Comments Provider Call Encounter Details Date Type Department Care Team (Late st Contact Info) Description 12/29/2023 Telephone [facility] [address] [place] [phone] Angela Cooper FNP [address] [place] [address] Provider Call Social History Tobacco Use Types Packs/Day Years Used Date Smoking Tobacco: Every Day Cigarettes 0.5 15 Smokeless Tobacco: Former Quit: 02/16/2007 Alcohol Use Standard Drinks/Week Comments No 0 (1 standard drink = 0.6 oz pur e alcohol) Feeling Safe Answer Date Recorded Are you in a relationship wi th someone who hurts you emotionally and/or physically? No 10/04/2023 Comments No Sex and Gender Information Value Date Recorded Sex Assigned at Not on file Legal Sex Female 8:04 AM SENIOR IOS DEVELOPER Gender Identity Not on file Sexual Orientation Not on file documented as of this encounter Miscellaneous Notes * Telephone Encounter - Mayda Fowler - 12/29/2023 11:47 AM CST Copied from [facility] #[id number]. Topic: Rhpcqqer-Ex-Vovqwisk Call >> Dec 29, 2023 11:44 AM Mayda Oviedo wrote: Caller is requesting to speak with Clinical Care Team. Caller Name: Alejandrina Fontenot NP [facility] [employer] house call program Callback Number: [phone] Clinician Type: Other healthcare professional not listed above Call Notes: peripheral artery screening test mild decrease of blood flow in her left leg. Is this addressing an immediate patient care need? No OR IOS DEVELOPER documented in this encounter Plan of Treatment Upcoming Encounters Date Type Department Care Team (Late st Contact Info) Description 04/18/2025 11:30 AM SENIOR IOS DEVELOPER Telemed [facility] [place] [address] [phone] Alejandrina Urbina NP [address] [place] [phone] 07/03/2025 2:45 PM CDT Office Visit [facility] [address] [facility] [address] [place] [address] Jaguar Tian MD [facility] [address] [facility] [address] [place] [address] documented as of this encounter Visit Diagnoses Not on filedocumented in this encounter Additional Health Concerns Assessment Noted Time PHQ-9 Depression Total Score: 1 10/08/19 11:11 AM CDT documented as of this encounter Care Teams Run Lead Relationship Specialty Start Date End Date Antoinette Wheatley MD [address] [facility] 60 [place] [address] PCP - General Family Practice 04/17/23 documented as of this encounter
--- OUTSIDE RECORDS SUMMARY | 2024-12-01 21:54 | XMS_ITS | Encounter Summary ---
Author Organization [facility] Address [address] [place] [address] Care Team Providers Care Hat Renovator Name Role Phone Cosmo Hand MD Primary Care Provider +1 -[phone] Encounter Details Date Type Department Care Team (Latest Contact Info) Description 04/23/2000 Outpatient Historical [facility] Jasper Mo Jr., MD [address] [place] [address] Osteoarthrosis, unspecified whether generalized or localized, unspecified site (Primary Dx); Unspecified symptom associated with female genital organs; Excessive menstruation Social History Tobacco Use Types Packs/Day Years Used Date Smoking Tobacco: Never Assessed Comments Unknown Sex and Gender Information Value Date Recorded Sex Assigned at Not on file 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 Gender Identity Not on file Sexual Orientation Not on file documented as of this encounter Plan of Treatment Not on file documented as of this encounter Visit Diagnoses Diagnosis Osteoarthrosis, unspecified whether generalized or localized, unspecified site- Primary Unspecified symptom associated with female genital organs Excessive menstruation Excessive or frequent menstruation documented in this encounter Care Teams Hat Renovator Relationship Specialty Start Date End Date Cosmo Hand MD [address] [facility] [address] [place] [address] PCP - General Family Practice 03/27/17 documented as of this encounter
--- OUTSIDE RECORDS SUMMARY | 2024-12-01 21:54 | XMS_ITS | Encounter Summary ---
Author Organization [facility] Address [address] [place] [address] Care Team Providers Care Electric Melt Operator Name Role Phone Cosmo Hand MD Primary Care Provider +1 -[phone] Encounter Details Date Type Department Care Team (Latest Contact Info) Description 05/25/2000 Outpatient Historical [facility] Jasper Mo Jr., MD [address] [place] [address] Calculus of gallbladder without mention of cholecystitis or obstruction (Primary Dx); Other and unspecified ovarian cyst Social History Tobacco Use Types Packs/Day Years Used Date Smoking Tobacco: Never Assessed Comments Unknown Sex and Gender Information Value Date Recorded Sex Assigned at Not on file 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
--- OUTSIDE RECORDS SUMMARY | 2024-12-01 21:54 | XMS_ITS | Encounter Summary ---
Author Organization [facility] Address [address] [facility] [address] 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
--- OUTSIDE RECORDS SUMMARY | 2024-12-01 21:54 | XMS_ITS | Encounter Summary ---
Author Organization [facility] Address [address] [place] [address] Care Team Providers Care Cartography Supervisor Name Role Phone Cosmo Hand MD Primary Care Provider +1 -[phone] Encounter Details Date Type Department Care Team (Latest Contact Info) Description 08/01/1999 Outpatient Historical [facility] Jasper Mo Jr., MD [address] [place] [address] Osteoarthrosis, unspecified whether generalized or localized, unspecified site (Primary Dx); Sprain rotator cuff; Unspecified adjustment reaction Social History Tobacco Use Types Packs/Day Years Used Date Smoking Tobacco: Never Assessed Comments Unknown Sex and Gender Information Value Date Recorded Sex Assigned at Not on file Legal 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 Female 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 Gender Identity Not on file Sexual Orientation Not on file documented as of this encounter Plan of Treatment Not on file documented as of this encounter Visit Diagnoses Diagnosis Osteoarthrosis, unspecified whether generalized or localized, unspecified site- Primary Sprain rotator cuff Rotator cuff (capsule) sprain Unspecified adjustment reaction documented in this encounter Care Teams Cartography Supervisor Relationship Specialty Start Date End Date Cosmo Hand MD [address] [facility] [place] [address] PCP - General Family Practice 03/27/17 documented as of this encounter
--- OUTSIDE RECORDS SUMMARY | 2024-12-01 21:54 | XMS_ITS | Encounter Summary ---
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
--- OUTSIDE RECORDS SUMMARY | 2024-12-01 21:54 | XMS_ITS | Encounter Summary ---
Author Organization [facility] Address [address] [place] [address] Care Team Providers Care Manager Government Name Role Phone Cosmo Hand MD Primary Care Provider +1 -[phone] Encounter Details Date Type Department Care Team (Latest Contact Info) Description 08/25/2000 Outpatient Historical [facility] Cosmo Watt MD [address] [place] [phone] Bronchitis, not specified as acute or chronic (Primary Dx); Acute sinusitis, unspecified; Tobacco use disorder Social History Tobacco Use Types Packs/Day Years Used Date Smoking Tobacco: Never Assessed Comments Unknown Sex and Gender Information Value Date Recorded Sex Assigned at Not on file Legal Sex Female 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
--- OUTSIDE RECORDS SUMMARY | 2024-12-01 21:54 | XMS_ITS | Encounter Summary ---
Author Organization [facility] Address [address] [place] [address] Care Team Providers Care Upper And Bottom Lacer Hand Name Role Phone Cosmo Hand MD Primary Care Provider +1 -[phone] Encounter Details Date Type Department Care Team (Late st Contact Info) Description 08/05/[address] [facility] FY Non-Staff, Physician NO ADDRESS ON FILE Social History Tobacco Use Types Packs/Day Years Used Date Smoking Tobacco: Never Assessed Comments Unknown Sex and Gender Information Value Date Recorded Sex Assigned at Not on file Legal Sex Female 6:26 AM SKIP LOADER Gender Identity Not on file Sexual Orientation Not on file documented as of this encounter Plan of Treatment Not on file documented as of this encounter Visit Diagnoses Not on filedocumented in this encounter Care Teams Upper And Bottom Lacer Hand Relationship Specialty Start Date End Date Cosmo Hand MD [address] [facility] [address] [place] [address] PCP - General Family Practice 03/27/17 documented as of this encounter
--- OUTSIDE RECORDS SUMMARY | 2024-12-01 21:54 | XMS_ITS | Encounter Summary ---
Author Organization [facility] Address [address] [place] [address] Care Team Providers Care Steamtable Attendant Railroad Name Role Phone Cosmo Hand MD Primary Care Provider +1 -[phone] Encounter Details Date Type Department Care Team (Latest Contact Info) Description 02/20/2000 Outpatient Historical [facility] Jasper Mo Jr., MD [address] [place] [address] Acute sinusitis, unspecified (Primary Dx); Osteoarthrosis, unspecified whether generalized or localized, unspecified site Social History Tobacco Use Types Packs/Day Years Used Date Smoking Tobacco: Never Assessed Comments Unknown Sex and Gender Information Value Date Recorded Sex Assigned at Not on file Legal Sex Female 6:26 AM ASSET CARD CLERK Gender Identity Not on file Sexual Orientation Not on file documented as of this encounter Plan of Treatment Not on file documented as of this encounter Visit Diagnoses Diagnosis Acute sinusitis, unspecified- Primary Osteoarthrosis, unspecified whether generalized or localized, unspecified site documented in this encounter Care Teams Steamtable Attendant Railroad Relationship Specialty Start Date End Date Cosmo Hand MD [address] [facility] [place] [address] PCP - General Family Practice 03/27/17 documented as of this encounter
--- OUTSIDE RECORDS SUMMARY | 2024-12-01 21:54 | XMS_ITS | Encounter Summary ---
Author Organization [facility] Address [address] [place] [address] Care Team Providers Care Hides Soaker Name Role Phone Cosmo Hand MD Primary Care Provider +1 [phone] Encounter Details Date Type Department Care Team (Late st Contact Info) Description 02/23/2002 Outpatient Historical [facility] Jasper Mo Jr., MD [address] [place] [phone] ANEMIA NOS (Primary Dx) Social History Tobacco Use Types Packs/Day Years Used Date Smoking Tobacco: Never Assessed Comments Unknown Sex and Gender Information Value Date Recorded Sex Assigned at Not on file Legal Sex Female 6:26 AM DIE MAINTENANCE 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
--- OUTSIDE RECORDS SUMMARY | 2024-12-01 21:54 | XMS_ITS | Encounter Summary ---
Author Organization [facility] Address [address] [place] [address] Care Team Providers Care Engineer Operations And Maintenance Name Role Phone Cosmo Hand MD Primary Care Provider +1 -[phone] Reason for Referral * Radiology Services (Routine) - Closed Specialty Diagnoses / Procedures Referred By Contac t Referred To Contact Radiology Diagnoses Inconclusive mammography Procedures MAMMO DIAG UNI RIGHT 3D JONO W OR WO CAD CHG DIAGNOSTIC MAMMOGRAPHY COMPUTER-AIDED DETCJ UNI CHG DIGITAL BREAST TOMOSYNTHESIS UNILATERAL Angela Cooper FNP Phone: tel: fax: [facility] [address] [address] Phone: tel: fax: Referral ID Status Reason Start Date Expiration Date Visits Requested Visits Authorized [id number] Closed Performing Department To Schedule (SGF) 10/05/2019 11/04/2020 1 1 Encounter Details Date Type Department Care Team (Latest Contact Info) Description 10/05/2019 Ancillary Orders [facility] [address] [address] Angela Cooper FNP [address] [place] [phone] Inconclusive mammography Social History Tobacco Use Types Packs/Day Years Used Date Smoking Tobacco: Every Day Cigarettes 0.5 20 Smokeless Tobacco: Former Chew Quit: 02/16/2007 Alcohol Use Standard Drinks/Week Comments No 0 (1 standard drink = 0.6 oz pur e alcohol) Comments No Sex and Gender Information Value Date Recorded Sex Assigned at Not on file Legal Sex Female 6:26 AM FORESTRY PATROLMAN Gender Identity Not on file Sexual Orientation Not on file Occupation Industry Job Start Date Job End Date Not on file Not on file Not on file Not on file COVID-19 Exposure Response Date Recorded In the last month, have you been in contact with someone who was confirmed or suspected to have Coronavirus / COVID-19? No / Unsure 10/04/2019 11:23 AM CDT documented as of this encounter Plan of Treatment Not on file documented as of this encounter Results * MAMMO DIAG UNI RIGHT 3D JONO W OR WO CAD (10/13/2019 12:37 PM CDT) Anatomical Region Laterality Modality Breast Right Mammography 10/13/2019 12:0 8 PM CDT Impressions 10/13/2019 3:39 PM CDT : The mass on the right appears to be a known sebaceous cyst, as noted above. I would recommend routine screening mammogram in one year. Patient received a result/recommendation letter. [id number] Narrative 10/13/2019 3:39 PM CDT RIGHT DIAGNOSTIC MAMMOGRAM 3-D JONO WITH OR WITHOUT CAD: 3-D jono synthesis CC and MLO imaging is presented on this 59-year-old female, to evaluate possible mass or dermal abnormality deep upper medially on the right on recent screening mammogram 10/13/2019 when compared with previous, most recent 11/05/2011. There is a known sebaceous cyst, by history, in this area. Mole marker was placed over that for today's imaging. The images today demonstrate that this is indeed the suspected mammographic abnormality. This should be of no clinical significance regarding breast disease. us Angela Cooper TERRAZZO WORKER APPRENTICE MAMMO ORDERABLES Final Result documented in this encounter Visit Diagnoses Diagnosis Inconclusive mammography Inconclusive mammogram Inconclusive mammography Inconclusive mammogram documented in this encounter Care Teams Engineer Operations And Maintenance Relationship Specialty Start Date End Date Cosmo Hand MD [address] [address] PCP - General Family Practice 03/27/17 documented as of this encounter
--- OUTSIDE RECORDS SUMMARY | 2024-12-01 21:54 | XMS_ITS | Encounter Summary ---
Author Organization [facility] Address [address] [place] [address] Care Team Providers Care Rum Processing Operator Name Role Phone Cosmo aHnd MD Primary Care Provider +1 [phone] Encounter Details Date Type Department Care Team (Latest Contact Info) Description 08/14/1999 Outpatient Historical [facility] Jasper Mo Jr., MD [facility] [place] [phone] Pain in joint, shoulder region (Primary Dx); Osteoarthrosis, unspecified whether generalized or localized, unspecified site; Other affections of shoulder region, not elsewhere classified Social History Tobacco Use Types Packs/Day Years Used Date Smoking Tobacco: Never Assessed Comments Unknown Sex and Gender Information Value Date Recorded Sex Assigned at Not on file Legal Sex Female 6:26 AM PROP ATTENDANT Gender Identity Not on file Sexual Orientation Not on file documented as of this encounter Plan of Treatment Not on file documented as of this encounter Visit Diagnoses Diagnosis Pain in joint, shoulder region- Primary Osteoarthrosis, unspecified whether generalized or localized, unspecified site Other affections of shoulder region, not elsewhere classified documented in this encounter Care Teams Rum Processing Operator Relationship Specialty Start Date End Date Cosmo Hand MD [address] [facility] [address] [place] [address] PCP - General Family Practice 03/27/17 documented as of this encounter
--- OUTSIDE RECORDS SUMMARY | 2024-12-01 21:54 | XMS_ITS | Encounter Summary ---
Author Organization [facility] Address [address] [place] [address] Care Team Providers Care Environmental Web Crawler Name Role Phone Cosmo Hand MD Primary Care Provider +1 [phone] Encounter Details Date Type Department Care Team (Latest Contact Info) Description 03/23/2000 Outpatient Historical [facility] Jasper Mo Jr., MD [address] [place] [address] Bronchitis, not specified as acute or chronic (Primary Dx); Chronic airway obstruction, not elsewhere classified (CMS/HCC) Social History Tobacco Use Types Packs/Day Years Used Date Smoking Tobacco: Never Assessed Comments Unknown Sex and Gender Information Value Date Recorded Sex Assigned at Not on file Legal Sex Female 6:26 AM DIRECTOR OF ENROLLMENT Gender Identity Not on file Sexual Orientation Not on file documented as of this encounter Plan of Treatment Not on file documented as of this encounter Visit Diagnoses Diagnosis Bronchitis, not specified as acute or chronic- Primary Chronic airway obstruction, not elsewhere classified (CMS/HCC) Chronic airway obstruction, not elsewhere classified documented in this encounter Care Teams Environmental Web Crawler Relationship Specialty Start Date End Date Cosmo Hand MD [address] [place] [address] PCP - General Family Practice 03/27/17 documented as of this encounter
--- OUTSIDE RECORDS SUMMARY | 2024-12-01 21:54 | XMS_ITS | Encounter Summary ---
Author Organization [facility] Address [address] [place] [address] Care Team Providers Care Cooler Conveyor Loader Name Role Phone Antoinette Wheatley MD Primary Care Provider [phone]- [phone] Encounter Details Date Type Department Care Team (Late Contact Info) Description 01/28/2024 Lab Requisition [facility] Laboratory Services [place] [address] [facility] [address] [place] [address] Angela Cooper, KENNETH [address] [place] [address] Pleurodynia Social History Tobacco Use Types Packs/Day Years [...] on file Legal Sex Female 8:04 AM BOARD WINDER Gender Identity Not on file Sexual Orientation Not on file documented as of this encounter Plan of Treatment Upcoming Encounters Date Type Department Care Team (Late st Contact Info) Description 04/18/2025 11:30 AM BOARD WINDER Telemed [employer] - [place] [address] [facility] [address] [place] [address] Alejandrina Urbina NP [address] [place] [address] 07/03/2025 2:45 PM CDT Office Visit [facility] At [facility] [address] [facility] [address] [place] [address] Jaguar Tian MD [address] [facility] [address] [place] [address] documented as of this encounter Procedures Procedure Name Priority Date/Time Associated Diagnosis Comments DIFFERENTIAL, MANUAL Stat 01/28/2024 12:47 PM BOARD WINDER Pleurodynia CBC WITH DIFFERENTIAL Stat 01/28/2024 12:47 PM BOARD WINDER Pleurodynia COMPREHENSIVE METABOLIC PANEL Stat 01/28/2024 12:47 PM BOARD WINDER Pleurodynia documented in this encounter Results * MANUAL DIFFERENTIAL (01/28/2024 12:47 PM BOARD WINDER) Pathologist [facility] PLATELET EST. Consistent w Count 01/28/2024 1:15 PM BOARD WINDER [facility] ANISOCYTOSIS 1+ /hpf 01/28/2024 1:15 PM BOARD WINDER [facility] MICROCYTES 1+ /hpf 01/28/2024 1:15 PM BOARD WINDER [facility] Blood Collection / Unknown 01/28/2024 12:47 PM BOARD WINDER 01/28/2024 12:47 PM BOARD WINDER Narrative [facility] - 01/28/2024 1:15 PM BOARD WINDER Smear reviewed. Findings consistent with automated results. us Angela Cooper [facility] HEMATOLOGY ORDERABLES COM Final Result [facility] CLIA # [id number] [address] [place] [address] * (ABNORMAL) COMPREHENSIVE METABOLIC PANEL (01/28/2024 12:47 PM BOARD WINDER) Pathologist [facility] SODIUM 137 136 - 145 mmol/L 01/28/2024 1:08 PM [facility] POTASSIUM 4.2 3.5 - 5.1 mmol/L 01/28/2024 1:08 PM [facility] CHLORIDE 102 98 - 107 mmol/L 01/28/2024 1:08 PM [facility] CO2 25 22 - 29 mmol/L 01/28/2024 1:08 PM [facility] CALCIUM 9.5 8.8 - 10.2 mg/dL 01/28/2024 1:08 PM [facility] BUN 13 8 - 23 mg/dL 01/28/2024 1:08 PM [facility] CREATININE 0.91 0.51 - 0.95 mg/dL 01/28/2024 1:08 PM [facility] GLUCOSE 108(H) 74 - 99 mg/dL 01/28/2024 1:08 PM [facility] TOTAL PROTEIN 7.9 6.6 - 8.7 g/dL 01/28/2024 1:08 PM [facility] ALBUMIN 4.4 3.5 - 5.2 g/dL 01/28/2024 1:08 PM [facility] BILIRUBIN TOTAL 0.3 <=1.2 mg/dL 01/28/2024 1:08 PM [facility] ALKALINE PHOSPHATASE 106(H) 35 - 104 U/L 01/28/2024 1:08 PM [facility] AST 18 10 - 35 U/L 01/28/2024 1:08 PM [facility] ALT 10 10 - 35 U/L 01/28/2024 1:08 PM [facility] GFR >60 >=60 mL/min/1.7 3 sq meter 01/28/2024 1:08 PM [facility] Comment:eGFR calculated with 2020 CKD-EPI equation. Vegetarian diet, extremely high or low muscle mass, and may affect results. Cystatin C with Glomerular Filtration Rate is a suitable alternative for these patients. ANION GAP 10(L) 12 - 20 mmol/L 01/28/2024 1:08 PM [facility] Blood Collection / Unknown 01/28/2024 12:47 PM BOARD WINDER 01/28/2024 12:47 PM BOARD WINDER us Angela Cooper SPIKE MACHINE OPERATOR CHEMISTRY ORDERABLES Final Resul t [facility] CLIA # [id number] [address] [place] [address] * (ABNORMAL) CBC WITH DIFFERENTIAL (01/28/2024 12:47 PM BOARD WINDER) WBC 9.5 4.0 - 10.0 K/uL 01/28/2024 1:15 PM [facility] RBC 5.63(H) 3.93 - 5.22 M/uL 01/28/2024 1:15 PM [facility] HEMOGLOBIN 13.8 11.2 - 15.7 g/dL 01/28/2024 1:15 PM [facility] HEMATOCRIT 43.0 34.1 - 44.9 % 01/28/2024 1:15 PM [facility] MCV 76.4(L) 79.4 - 94.8 fL 01/28/2024 1:15 PM [facility] MCH 24.5(L) 25.6 - 32.2 pg 01/28/2024 1:15 PM [facility] MCHC 32.1(L) 32.2 - 35.5 g/dL 01/28/2024 1:15 PM [facility] RDW 15.9(H) 11.0 - 14.5 % 01/28/2024 1:15 PM [facility] RDW-STDEV 44.0 36.9 - 56.9 fL 01/28/2024 1:15 PM [facility] PLATELETS 346(H) 163 - 337 K/uL 01/28/2024 1:15 PM [facility] MPV 10.0 10.0 - 14.8 fL 01/28/2024 1:15 PM [facility] NEUTROPHILS 62 34 - 71 % 01/28/2024 1:15 PM [facility] LYMPHOCYTES 31 19 - 52 % 01/28/2024 1:15 PM [facility] MONOCYTES 4(L) 5 - 13 % 01/28/2024 1:15 PM [facility] EOSINOPHILS 2 1 - 6 % 01/28/2024 1:15 PM [facility] BASOPHILS 1 0 - 1 % 01/28/2024 1:15 PM [facility] IMMATURE GRANULOCYTES 0 % 01/28/2024 1:15 PM [facility] NEUTROPHIL ABSOLUTE 5.89 1.56 - 6.13 K/uL 01/28/2024 1:15 PM [facility] LYMPHOCYTE ABSOLUTE 2.96 1.20 - 3.40 K/uL 01/28/2024 1:15 PM [facility] MONOCYTE ABSOLUTE 0.38(H) 0.24 - 0.36 K/uL 01/28/2024 1:15 PM [facility] EOSINOPHIL ABSOLUTE 0.17 0.04 - 0.36 K/uL 01/28/2024 1:15 PM [facility] BASOPHILS ABSOLUTE 0.09(H) 0.01 - 0.08 K/uL 01/28/2024 1:15 PM [facility] IMMATURE GRANULOCYTES ABSOLUTE 0.02 K/uL 01/28/2024 1:15 PM [facility] Blood Collection / Unknown 01/28/2024 12:47 PM BOARD WINDER 01/28/2024 12:47 PM BOARD WINDER Angela Cooper SPIKE MACHINE OPERATOR HEMATOLOGY ORDERABLES Final Resu lt [facility] CLIA # [id number] [address] [place] [address] documented in this encounter Visit Diagnoses Diagnosis Pleurodynia Painful respiration documented in this encounter Additional Health Concerns Assessment Noted Time PHQ-9 Depression Total Score: 1 10/08/19 24 11:11 AM CDT documented as of this encounter Care Teams Cooler Conveyor Loader Relationship Specialty Start Date End Date Antoinette Wheatley MD [address] [address] PCP - General Family Practice 04/17/23 documented as of this encounter
--- OUTSIDE RECORDS SUMMARY | 2024-12-01 21:54 | XMS_ITS | Encounter Summary ---
Author Organization [facility] Address [address] [place] [address] Care Team Providers Care Reception Name Role Phone Cosmo Hand MD Primary Care Provider +1 [phone] Encounter Details Date Type Department Care Team (Latest Contact Info) Description 04/29/1999 Outpatient Historical [facility] Jasper Mo Jr., MD [facility] [place] [address] Chronic airway obstruction, not elsewhere classified (CMS/HCC) (Primary Dx); Acute cystitis; Osteoarthrosis, unspecified whether generalized or localized, unspecified site; Hematuria Social History Tobacco Use Types Packs/Day Years Used Date Smoking Tobacco: Never Assessed Comments Unknown Sex and Gender Information Value Date Recorded Sex Assigned at Not on file Legal Sex Female 6:26 AM SEXTON HELPER Gender Identity Not on file Sexual Orientation Not on file documented as of this encounter Plan of Treatment Not on file documented as of this encounter Visit Diagnoses Diagnosis Chronic airway obstruction, not elsewhere classified (CMS/HCC)- Primary Chronic airway obstruction, not elsewhere classified Acute cystitis Osteoarthrosis, unspecified whether generalized or localized, unspecified site Hematuria documented in this encounter Care Teams Reception Relationship Specialty Start Date End Date Cosmo Hand MD [address] [facility] [address] [place] [address] PCP - General Family Practice 03/27/17 documented as of this encounter
--- OUTSIDE RECORDS SUMMARY | 2024-12-01 21:54 | XMS_ITS | Encounter Summary ---
Author Organization [facility] Address [address] [place] [address] Care Team Providers Care Micro Computer Data Processor Name Role Phone Cosmo Hand MD Primary Care Provider +1 -[phone] Encounter Details Date Type Department Care Team (Latest Contact Info) Description 03/08/1999 Outpatient Historical [facility] Jasper Mo Jr., MD [address] [place] [address] Acute bronchitis (Primary Dx); Depressive disorder, not elsewhere classified; Chronic airway obstruction, not elsewhere classified (CMS/HCC) Social History Tobacco Use Types Packs/Day Years Used Date Smoking Tobacco: Never Assessed Comments Unknown Sex and Gender Information Value Date Recorded Sex Assigned at Not on file Legal Sex Female 6:26 AM GERIATRIC CARE MANAGER Gender Identity Not on file Sexual Orientation Not on file documented as of this encounter Plan of Treatment Not on file documented as of this encounter Visit Diagnoses Diagnosis Acute bronchitis- Primary Depressive disorder, not elsewhere classified Chronic airway obstruction, not elsewhere classified (CMS/HCC) Chronic airway obstruction, not elsewhere classified documented in this encounter Care Teams Micro Computer Data Processor Relationship Specialty Start Date End Date Cosmo Hand MD [address] [place] [address] PCP - General Family Practice 03/27/17 documented as of this encounter
--- OUTSIDE RECORDS SUMMARY | 2024-12-01 21:54 | XMS_ITS | Encounter Summary ---
Author Organization [facility] Address [address] [place] [address] Care Team Providers Care Terrazzo Journeyman Name Role Phone Comso Hand MD Primary Care Provider +1 -[phone] Encounter Details Date Type Department Care Team (Latest Contact Info) Description 11/03/2002 Outpatient Historical [facility] Jasper Mo Jr., MD [address] [place] [address] BRONCHITIS NOS (Primary Dx); CHRONIC AIRWAY OBSTRUCTION NEC (CMS/[facility]); Pure hypercholesterolem Social History Tobacco Use Types Packs/Day Years Used Date Smoking Tobacco: Never Assessed Comments Unknown Sex and Gender Information Value Date Recorded Sex Assigned at Not on file Legal Sex Female 6:26 AM SPORTS INSTRUCTOR Gender Identity Not on file Sexual Orientation Not on file documented as of this encounter Plan of Treatment Not on file documented as of this encounter Visit Diagnoses Diagnosis Bronchitis, not specified as acute or chronic- Primary Chronic airway obstruction, not elsewhere classified (CMS/HCC) Chronic airway obstruction, not elsewhere classified Pure hypercholesterolem Pure hypercholesterolemia documented in this encounter Care Teams Terrazzo Journeyman Relationship Specialty Start Date End Date Cosmo Hand MD [address] [place] [address] PCP - General Family Practice 03/27/17 documented as of this encounter
--- OUTSIDE RECORDS SUMMARY | 2024-12-01 21:54 | XMS_ITS | Encounter Summary ---
Author Organization [facility] Address [address] [facility] [address] Koch: [place] [address] Care Team Providers Care Continuous Improvement Black Belt Name Role Phone Cosmo Hand MD Primary Care Provider +1 -[phone] Encounter Details Date Type Department Care Team (Late st Contact Info) Description 10/01/2001 Inpatient Historical Avelino Vinson MD [address] [place] [address] Social History Tobacco Use Types Packs/Day Years Used Date Smoking Tobacco: Never Assessed Comments Unknown Sex and Gender Information Value Date Recorded Sex Assigned at Not on file Legal Sex Female 6:26 AM SAW MAKER Gender Identity Not on file Sexual Orientation Not on file documented as of this encounter Plan of Treatment Not on file documented as of this encounter Visit Diagnoses Not on filedocumented in this encounter Care Teams Continuous Improvement Black Belt Relationship Specialty Start Date End Date Cosmo Hand MD [address] [facility] [address] [place] [address] PCP - General Family Practice 03/27/17 documented as of this encounter
--- OUTSIDE RECORDS SUMMARY | 2024-12-01 21:54 | XMS_ITS | Encounter Summary ---
Author Organization [facility] Address [address] [place] [address] Care Team Providers Care Material Dispatcher Name Role Phone Cosmo Hand MD Primary Care Provider +1 [phone] Encounter Details Date Type Department Care Team (Latest Contact Info) Description 11/18/2001 Outpatient Historical [facility] Jasper Mo Jr., MD [facility] [place] [address] ACUTE SINUSITIS NOS (Primary Dx); BRONCHITIS NOS; TOBACCO USE DISORDER; VACCINE FOR INFLUENZA Social History Tobacco Use Types Packs/Day Years Used Date Smoking Tobacco: Never Assessed Comments Unknown Sex and Gender Information Value Date Recorded Sex Assigned at Not on file Legal Sex Female 6:26 AM PRODUCTION MINER Gender Identity Not on file Sexual Orientation Not on file documented as of this encounter Plan of Treatment Not on file documented as of this encounter Visit Diagnoses Diagnosis Acute sinusitis, unspecified- Primary Bronchitis, not specified as acute or chronic Tobacco use disorder Need vaccination-viral disease Need for prophylactic vaccination and inoculation against other viral diseases documented in this encounter Care Teams Material Dispatcher Relationship Specialty Start Date End Date Cosmo Hand MD [address] [place] [address] PCP - General Family Practice 03/27/17 documented as of this encounter
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
--- OUTSIDE RECORDS SUMMARY | 2024-12-01 21:54 | XMS_ITS | Encounter Summary ---
Author Organization [facility] Address [address] [place] [address] Care Team Providers Care Plug Maker Name Role Phone Cosmo Hand MD Primary Care Provider +1 [phone] Encounter Details Date Type Department Care Team (Latest Contact Info) Description 01/24/2002 Outpatient Historical [facility] Jasper Mo Jr., MD [address] [place] [address] ESOPHAGEAL REFLUX (Primary Dx); DYSKINESIA OF ESOPHAGUS; TOBACCO USE DISORDER; CHRONIC AIRWAY OBSTRUCTION NEC ([facility]) Social History Tobacco Use Types Packs/Day Years Used Date Smoking Tobacco: Never Assessed Comments Unknown Sex and Gender Information Value Date Recorded Sex Assigned at Not on file Legal Sex Female 6:26 AM GEODETIC ADVISOR Gender Identity Not on file Sexual Orientation Not on file documented as of this encounter Plan of Treatment Not on file documented as of this encounter Visit Diagnoses Diagnosis Esophageal reflux- Primary Dyskinesia of esophagus Tobacco use disorder Chronic airway obstruction, not elsewhere classified (CMS/HCC) Chronic airway obstruction, not elsewhere classified documented in this encounter Care Teams Plug Maker Relationship Specialty Start Date End Date Cosmo Hand MD [address] [place] [address] PCP - General Family Practice 03/27/17 documented as of this encounter
--- OUTSIDE RECORDS SUMMARY | 2024-12-01 21:54 | XMS_ITS | Encounter Summary ---
Author Organization [facility] Address [address] [place] [address] Care Team Providers Care Job Press Feeder Name Role Phone Cosmo Hand MD Primary Care Provider +1 [phone] Encounter Details Date Type Department Care Team (Latest Contact Info) Description 01/23/1999 Outpatient Historical [facility] Jasper Mo Jr., MD [facility] [place] [address] Osteoarthrosis, unspecified whether generalized or localized, unspecified site (Primary Dx); Depressive disorder, not elsewhere classified; Chronic airway obstruction, not elsewhere classified (CMS/[facility]) Social History Tobacco Use Types Packs/Day Years Used Date Smoking Tobacco: Never Assessed Comments Unknown Sex and Gender Information Value Date Recorded Sex Assigned at Not on file Legal Sex Female 6:26 AM CUSTOMER ACCOUNT MANAGER Gender Identity Not on file Sexual Orientation Not on file documented as of this encounter Plan of Treatment Not on file documented as of this encounter Visit Diagnoses Diagnosis Osteoarthrosis, unspecified whether generalized or localized, unspecified site- Primary Depressive disorder, not elsewhere classified Chronic airway obstruction, not elsewhere classified (CMS/HCC) Chronic airway obstruction, not elsewhere classified documented in this encounter Care Teams Job Press Feeder Relationship Specialty Start Date End Date Cosmo Hand MD [address] [place] [address] PCP - General Family Practice 03/27/17 documented as of this encounter
--- OUTSIDE RECORDS SUMMARY | 2024-12-01 21:54 | XMS_ITS | Clinical Summary ---
Author Organization [facility] Address [address] [place] [address] Care Team Providers Care Campus Rep Name Role Phone Cosmo Hand MD Primary Care Provider +1 [phone] Allergies Active Allergy Reactions Criticality Noted Date Comments Amoxicillin Other (See Comments) 03/03/2011 Causes illness, Amoxicillin-Pot Clavulanate Diarrhea,Nausea and Vomiting Low 03/03/2011 Sulfamethoxazole-Trimet hoprim Rash Low 11/03/2016 Medications acetaminophen (TYLENOL) 500 mg tablet Take 1,000 mg by mouth every 6 hours as needed. Active cetirizine (ZyrTEC) 10 mg tablet TAKE 1 TABLET BY MOUTH DAILY 90 Tablet 1 1 Active levothyroxine 25 mcg tablet TAKE 1 TABLET BY MOUTH EVERY MORNING ON AN EMPTY STOMACH. NO FOOD OR MEDS FOR 30MIN TO 1 HOUR AFTER. 90 Tablet 1 1 Active ProAir HFA 90 mcg/actuation inhalerIndicatio ns:Chronic obstructive pulmonary disease, unspecified COPD type (CMS/HCC),Panlob ular emphysema INHALE 2 PUFFS BY MOUTH EVERY 6 HOURS NEEDED FOR SHORTNESS OF BREATH 25.5 Gram 5 1 Active montelukast (SINGULAIR) 10 mg tabletIndication s:Chronic allergic rhinitis TAKE 1 TABLET(10 MG) BY MOUTH DAILY AT BEDTIME 90 Tablet 1 1 Active omeprazole (PriLOSEC) 20 mg Capsule, Delayed Release(E.C.)Ind ications:Gastroe sophageal reflux disease without esophagitis TAKE 1 CAPSULE(20 MG) BY MOUTH DAILY 90 Capsule 1 1 Active fluticasone propionate (FLONASE) 50 mcg/spray [place], Suspension nasal inhalerIndicatio ns:Chronic allergic rhinitis SHAKE LIQUID AND USE 1 SPRAY IN EACH NOSTRIL DAILY 16 Gram 5 1 Active fluticasone-umec lidinium-vilante rol (TRELEGY ELLIPTA) 100-62.5-25 mcg Disk with DeviceIndication s:Chronic obstructive pulmonary disease, unspecified COPD type (CMS/HCC),Panlob ular emphysema Take 1 Puff by inhalation daily. 1 Each 5 1 Active albuterol (PROVENTIL,ARPIT DARRELL) 2.5 mg /3 mL (0.083 %) Solution for NebulizationIndi cations:Chronic obstructive pulmonary disease, unspecified COPD type (CMS/HCC),Panlob ular emphysema TAKE 3ML BY INHALATION EVERY 4 HOURS 540 mL 1 1 Active guaiFENesin (Mucinex) 600 mg Extended Release Biphasic tabletIndication s:Panlobular emphysema Take 1 Tablet (600 mg) by mouth 2 times daily. 30 Tablet 5 1 Active mupirocin (BACTROBAN) 2 % Ointment Apply to affected area daily. 60 Gram 1 1 Active triamcinolone acetonide (KENALOG) 0.1 % Ointment Apply to affected area 2 times daily. 30 Gram 2 1 Active fluconazole (DIFLUCAN) 150 mg tabletIndication s:Vaginal itching Take 1 Tablet (150 mg) by mouth daily. 1 Tablet 1 1 Active pseudoephedrine (Sudafed 12 Hour) 120 mg Extended Release 12 hour tablet Take 1 Tablet (120 mg) by mouth 2 times daily as needed for Congestion. 60 Tablet 1 Active ibuprofen (MOTRIN) 800 mg tablet TAKE 1 TABLET BY MOUTH EVERY 6 HOURS NEEDED FOR PAIN 60 Tablet 1 1 Active Active Problems Problem Noted Date Diagnosed Date S/P carpal tunnel release, right wrist 8 S/P carpal tunnel release, left wrist 06/11/2017 Bilateral carpal tunnel syndrome 05/21/2017 Hypothyroidism 05/04/2017 Tooth decay 04/13/2016 History of abscessed tooth 04/13/2016 Chronic headache 04/13/2016 Chronic pansinusitis 04/09/2016 Tobacco use 01/09/2015 Hypertrophy of nasal turbinates 06/09/2012 Dental disease 06/09/2012 Chronic rhinitis 06/09/2012 Acute meniscal tear of knee 10/30/2011 Carpal tunnel syndrome 04/09/2011 COPD (chronic obstructive pulmonary disease) GERD (gastroesophageal reflux disease) 2 Immunizations Immunization Administration Dates Next Due (PFIZER)(12 YR UP) COVID-19 VACCINE - EMERGENCY USE AUTHORIZATION, MRNA, [id number](PF) 30 MCG/0.3 ML IM SUSP 05/31/2020,05/10/2020 (PNEUMOVAX 23)(50 YRS UP) PN EUMOCOCCAL POLYSACCHARIDE (PPV23) 0.5 ML, IM 11/03/2003 INFLUENZA VACCINE QUADRIVALE NT 3 YR UP PF IM 01/15/2016,12/22/2014,11/14/2013 INFLUENZA VACCINE QUADRIVALENT 6 MOS UP IM 04/06 INFLUENZA VACCINE QUADRIVALE NT 6 MOS UP PF IM 01/05/2020 Influenza Seasonal Unspecifi ed Formulation IM 01/16/2018,11/24/2002,11/18/2001 Influenza Vaccine Split 3+ Yrs PF IM 12/28/2012, 12/05/2011 Zoster Vaccine Live SQ 09/24/2011 Family History * Patient is adopted Medical History Relation Name Comments No Known Problems Daughter Unknown Father UNKNOWN Unknown Maternal Grandfather UNKNOWN Unknown Maternal Grandmother UNKNOWN Unknown Mother UNKNOWN Unknown Paternal Grandfather UNKNOWN [...] 20 Smokeless Tobacco: Former Chew Quit: 02/16/2007 Tobacco Cessation:Ready to Q uit: No; Counseling Given: No Alcohol Use Standard Drinks/Week Comments No 0 (1 standard drink = 0.6 oz pur e alcohol) Comments No Sex and Gender Information Value Date Recorded Sex Assigned at Not on file Legal 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 Gender Identity Not on file Sexual Orientation Not on file Occupation Industry Job Start Date Job End Date Not on file Not on file Not on file Not on file Last Filed Vital Signs Vital Sign Reading Time Taken Comments Blood Pressure 120/72 07/03/2020 10:06 AM CDT Pulse 92 07/03/2020 10:06 AM CDT Temperature 36.9 C (98.5 F) 07/03/2020 10:06 AM CDT Respiratory Rate 28 07/03/2020 10:06 AM CDT Oxygen Saturation 98% 07/03/2020 10:06 AM CDT Inhaled Oxygen Concentration - - Weight 78.5 kg (173 lb) 07/03/2020 10:06 AM CDT Height 152.4 cm (5') 07/03/2020 10:06 AM CDT Body Mass Index 33.79 07/03/2020 10:06 AM CDT Plan of Treatment Health Maintenance Due Date Last Done Comments Pre-Diabetes and Diabetes Screening 1958 DTAP/TDAP/TD VACCINES (1 - Tdap) 1977 Preventative Visit-Managed Medicaid 1977 COLORECTAL SCREENING 2003 Colorectal Cancer Screening 2003 FIT-DNA Q 3 years 2003 FIT/FOBT Q 1 year 2003 12/26/1998, 06/06/1998 Flex Sig/CT Colonography Q 5 years 2003 PNEUMOCOCCAL VACCINE 50+ YEA RS (2 of 2 - PCV) 11/02/2004 11/03/2003 ZOSTER VACCINE (2 of 3) 11/19/2011 09/24/2011 RSV VACCINE (60+ or ) (1 - Risk 60-74 years 1-dose series) 2018 INFLUENZA VACCINE (#1) 2024 0, 04/06/2019, 12/30/2018, Additional history exists COVID-19 Vaccine (3 - 2024-2 6 season) 2024 05/31/2020, 05/10/2020 BREAST CANCER SCREENING 12/01/2024 12/02/19 24, 02/18/2021, 10/13/2019, Additional history exists OSTEOPOROSIS SCREENING 10/24/2029 10/24/2024 Procedures Procedure Name Priority Date/Time Associated Diagnosis Comments MAMMO DIAG UNI RIGHT 3D JONO W OR WO CAD Routine 10/13/2019 12:37 PM CDT Inconclusive mammography from Last 3 Months or Most Recently Relevant to Health Maintenance Results * MAMMO DIAG UNI RIGHT 3D JONO W OR WO CAD (10/13/2019 12:37 PM CDT) Anatomical Region Laterality Modality Breast Right Mammography 10/13/2019 12:0 8 PM CDT Impressions 10/13/2019 3:39 PM CDT : The mass on the right appears to be a known sebaceous cyst, as noted above. I would recommend routine screening mammogram in one year. Patient received a result/recommendation letter. [id number] Narrative 10/13/2019 3:39 PM CDT RIGHT DIAGNOSTIC [...] of no clinical significance regarding breast disease. Angela Cooper [facility] MAMMO ORDERABLES Final Result from Last 3 Months or Most Recently Relevant to Health Maintenance Insurance [place]ICA[place] Advance Directives For more information, please contact: [phone] * Full Code (Latest Code Status on File) Date Activated Date Inactivated Comments 12/28/2017 8:42 AM 12/28/2017 12:54 PM Care Teams Campus Rep Relationship Specialty Start Date End Date Cosmo Hand MD [address] [address] PCP - General Family Practice 03/27/17
--- OUTSIDE RECORDS SUMMARY | 2024-12-01 21:54 | XMS_ITS | Encounter Summary ---
Author Organization [facility] Address [address] [place] [address] Care Team Providers Care Car Dryer Name Role Phone Cosmo Hand MD Primary Care Provider [phone] [phone] Encounter Details Date Type Department Care Team (Latest Contact Info) Description 01/20/2000 Outpatient Historical [facility] Jasper Mo Jr., MD [address] [place] [address] Acute upper respiratory infections of unspecified site (Primary Dx); Acute pharyngitis; Unspecified adjustment reaction Social History Tobacco Use Types Packs/Day Years Used Date Smoking Tobacco: Never Assessed Comments Unknown Sex and Gender Information Value Date Recorded Sex Assigned at Not on file Legal Sex Female 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
--- OUTSIDE RECORDS SUMMARY | 2024-12-01 21:54 | XMS_ITS | Encounter Summary ---
Author Organization [facility] Address [address] [place] [address] Care Team Providers Care Lumber Puller Name Role Phone Cosmo Hand MD Primary Care Provider +1 [phone] Encounter Details Date Type Department Care Team (Latest Contact Info) Description 03/16/2002 Outpatient Historical [facility] Jasper Mo Jr., MD [address] [place] [address] SPASM OF MUSCLE (Primary Dx); OSTEOARTHROS NOS-UNSPEC; ACUTE SINUSITIS NOS; TOBACCO USE DISORDER Social History Tobacco Use Types Packs/Day Years Used Date Smoking Tobacco: Never Assessed Comments Unknown Sex and Gender Information Value Date Recorded Sex Assigned at Not on file 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
--- OUTSIDE RECORDS SUMMARY | 2024-12-01 21:54 | XMS_ITS | Encounter Summary ---
Author Organization [facility] Address [address] [place] [address] Care Team Providers Care Sleeve Fixer Name Role Phone Cosmo Hand MD Primary Care Provider +1 [phone] Encounter Details Date Type Department Care Team (Latest Contact Info) Description 11/24/2002 Outpatient Historical [facility] Jasper Mo Jr., MD [address] [place] [address] CHRONIC AIRWAY OBSTRUCTION NEC ([facility]) (Primary Dx); TOBACCO USE DISORDER; Vaccine for influenza Social History Tobacco Use Types Packs/Day Years Used Date Smoking Tobacco: Never Assessed Comments Unknown Sex and Gender Information Value Date Recorded Sex Assigned at Not on file 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 Gender Identity Not on file Sexual Orientation Not on file documented as of this encounter Plan of Treatment Not on file documented as of this encounter Visit Diagnoses Diagnosis Chronic airway obstruction, not elsewhere classified (CMS/HCC)- Primary Chronic airway obstruction, not elsewhere classified Tobacco use disorder Vaccine for influenza Need for prophylactic vaccination and inoculation against influenza documented in this encounter Care Teams Sleeve Fixer Relationship Specialty Start Date End Date Cosmo Hand MD [address] [place] [address] PCP - General Family Practice 03/27/17 documented as of this encounter
--- OUTSIDE RECORDS SUMMARY | 2024-12-01 21:54 | XMS_ITS | Encounter Summary ---
Author Organization [facility] Address [address] [place] [address] Care Team Providers Care Director Cloud Transformation Name Role Phone Cosmo Hand MD Primary Care Provider [phone] [phone] Encounter Details Date Type Department Care Team (Latest Contact Info) Description 05/27/1999 Outpatient Historical [facility] Jasper Mo Jr., MD [address] [place] [address] Bronchitis, not specified as acute or chronic (Primary Dx) Social History Tobacco Use Types Packs/Day Years Used Date Smoking Tobacco: Never Assessed Comments Unknown Sex and Gender Information Value Date Recorded Sex Assigned at Not on file Legal 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
--- OUTSIDE RECORDS SUMMARY | 2024-12-01 21:54 | XMS_ITS | Encounter Summary ---
Author Organization [facility] Address [address] [place] [address] Care Team Providers Care Esol Teacher Assistant Name Role Phone Cosmo Hand MD Primary Care Provider +1 -[phone] Encounter Details Date Type Department Care Team (Latest Contact Info) Description 10/23/1999 Outpatient Historical [facility] Jasper Mo Jr., MD [address] [place] [address] Other screening breast examination (Primary Dx) Social History Tobacco Use Types Packs/Day Years Used Date Smoking Tobacco: Never Assessed Comments Unknown Sex and Gender Information Value Date Recorded Sex Assigned at Not on file Legal 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
--- OUTSIDE RECORDS SUMMARY | 2024-12-01 21:54 | XMS_ITS | Encounter Summary ---
Author Organization [facility] Address [address] [place] [address] Care Team Providers Care Substation Manager Name Role Phone Cosmo Hand MD Primary Care Provider +1 -[phone] Encounter Details Date Type Department Care Team (Latest Contact Info) Description 12/19/1999 Outpatient Historical [facility] Jasper Mo Jr., MD [facility] [place] [address] Bronchitis, not specified as acute or chronic (Primary Dx) Social History Tobacco Use Types Packs/Day Years Used Date Smoking Tobacco: Never Assessed Comments Unknown Sex and Gender Information Value Date Recorded Sex Assigned at Not on file 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
--- OUTSIDE RECORDS SUMMARY | 2024-12-01 21:54 | XMS_ITS | Encounter Summary ---
Author Organization [facility] Address [address] [place] [address] Care Team Providers Care Heating Plant Superintendent Name Role Phone Cosmo Hand MD Primary Care Provider +1 [phone] Encounter Details Date Type Department Care Team (Latest Contact Info) Description 07/08/2000 Outpatient Historical [facility] Jasper Mo Jr., MD [address] [place] [address] Excessive menstruation (Primary Dx) Social History Tobacco Use Types Packs/Day Years Used Date Smoking Tobacco: Never Assessed Comments Unknown Sex and Gender Information Value Date Recorded Sex Assigned at Not on file Legal Sex Female 6:26 AM CLIENT 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
--- OUTSIDE RECORDS SUMMARY | 2024-12-01 21:54 | XMS_ITS | Encounter Summary ---
Author Organization [facility] Address [address] [place] [address] Care Team Providers Care Site Operations Manager Name Role Phone Cosmo Hand MD Primary Care Provider +1 [phone] Encounter Details Date Type Department Care Team (Latest Contact Info) Description 03/29/1999 Outpatient Historical [facility] Jasper Mo Jr., MD [address] [place] [address] Obesity, unspecified (Primary Dx); Osteoarthrosis, unspecified whether generalized or localized, unspecified site Social History Tobacco Use Types Packs/Day Years Used Date Smoking Tobacco: Never Assessed Comments Unknown Sex and Gender Information Value Date Recorded Sex Assigned at Not on file Legal 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
--- OUTSIDE RECORDS SUMMARY | 2024-12-01 21:54 | XMS_ITS | Encounter Summary ---
Author Organization [facility] Address [address] [place] [address] Care Team Providers Care Manual Tester Name Role Phone Cosmo Hand MD Primary Care Provider +1 -[phone] Encounter Details Date Type Department Care Team (Latest Contact Info) Description 08/24/2002 Outpatient Historical [facility] Jasper Mo Jr., MD [facility] [place] [address] Pure hypercholesterolem (Primary Dx); ESOPHAGEAL REFLUX; EDEMA Social History Tobacco Use Types Packs/Day Years Used Date Smoking Tobacco: Never Assessed Comments Unknown Sex and Gender Information Value Date Recorded Sex Assigned at Not on file Legal Sex Female 6:26 AM 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
--- OUTSIDE RECORDS SUMMARY | 2024-12-01 21:54 | XMS_ITS | Encounter Summary ---
Author Organization [facility] Address [address] [place] [address] Care Team Providers Care Seed Expert Name Role Phone Cosmo Hand MD Primary Care Provider +1 -[phone] Encounter Details Date Type Department Care Team (Latest Contact Info) Description 01/06/2001 Outpatient Historical [facility] Jasper Mo Jr., MD [address] [place] [address] ACUTE URI NOS (Primary Dx) Social History Tobacco Use Types Packs/Day Years Used Date Smoking Tobacco: Never Assessed Comments Unknown Sex and Gender Information Value Date Recorded Sex Assigned at Not on file Legal Sex Female 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
--- OUTSIDE RECORDS SUMMARY | 2024-12-01 21:54 | XMS_ITS | Encounter Summary ---
Author Organization [facility] Address [address] [place] [address] Care Team Providers Care Supervisor Concrete Stone Finishing Name Role Phone Cosmo Hand MD Primary Care Provider +1 -[phone] Encounter Details Date Type Department Care Team (Late st Contact Info) Description 07/10/2009 Ancillary Orders [facility] External Department [address] [place] [address] Chepe Bill, Jasper Manjarrez MD [address] [place] [address] ELLIOTT (Headache) Social History Tobacco Use Types Packs/Day Years Used Date Smoking Tobacco: Never Assessed Comments Unknown Sex and Gender Information Value Date Recorded Sex Assigned at Not on file Legal Sex Female 6:26 AM INTERN ARCHITECT Gender Identity Not on file Sexual Orientation Not on file documented as of this encounter Plan of Treatment Not on file documented as of this encounter Results * MRI BRAIN W WO CONTRAST (07/11/2009 11:12 AM CDT) Anatomical Region Laterality Modality Head Magnetic Resonan ce 07/11/2009 10:2 9 AM CDT Impressions 07/11/2009 3:24 PM CDT Impression: Unremarkable study. ekp - uploaded from [employer] Narrative 07/11/2009 3:24 PM CDT Exam: MRI BRAIN W WO CONTRAST Date/Time of Exam: July 11, 2009 11:12:00 AM History: ELLIOTT (HEADACHE). Technique: Sagittal and axial T1, axial proton density and T2 TAMMY, axial FLAIR, axial hemoflash, axial DWI and ADC, axial T1 postcontrast sequences were performed. Contrast was administered by hand injection, Optimark. Contrast: 13 mL Optimark contrast was injected IV. Findings: The axial DWI and ADC sequence shows no signs of restricted diffusion or diminished ADC values. The axial FLAIR sequence shows minimal nonspecific T2 white matter changes in the acosta radiata. The proton-dense and T2 sequences show the usual flow-voids in the carotids and in the vertebrobasilar circulations. The paranasal sinuses show mucosal retention cyst on the left. The axial gradient-echo sequence shows no signs of blood or blood byproduct. The sagittal and axial T1 noncontrast and axial T1 postcontrast images show no T1 shortening or abnormal enhancement. The usual vascular structures are identified. Venous sinuses enhance normally. Procedure Note William Hope MD - 07/11/2009 Exam: MRI BRAIN W WO CONTRAST Date/Time of Exam: July 11, 2009 11:12:00 AM History: ELLIOTT (HEADACHE). Technique: Sagittal and axial T1, axial proton density and T2 TAMMY, axial FLAIR, axial hemoflash, axial DWI and ADC, axial T1 postcontrast sequences were performed. Contrast was administered by hand injection, Optimark. Contrast: 13 mL Optimark contrast was injected IV. Findings: The axial DWI and ADC sequence shows no signs of restricted diffusion or diminished ADC values. The axial FLAIR sequence shows minimal nonspecific T2 white matter changes in the acosta radiata. The proton-dense and T2 sequences show the usual flow-voids in the carotids and in the vertebrobasilar circulations. The paranasal sinuses show mucosal retention cyst on the left. The axial gradient-echo sequence shows no signs of blood or blood byproduct. The sagittal and axial T1 noncontrast and axial T1 postcontrast images show no T1 shortening or abnormal enhancement. The usual vascular structures are identified. Venous sinuses enhance normally. IMPRESSION Impression: Unremarkable study. ekp - uploaded from [employer] us Jasper Mo Jr., MD MR ORDERABLES Final R esult documented in this encounter Visit Diagnoses Diagnosis ELLIOTT (headache) Headache documented in this encounter Care Teams Supervisor Concrete Stone Finishing Relationship Specialty Start Date End Date Cosmo Hand MD [address] [address] PCP - General Family Practice 03/27/17 documented as of this encounter
--- OUTSIDE RECORDS SUMMARY | 2024-12-01 21:54 | XMS_ITS | Encounter Summary ---
Author Organization [facility] Address [address] [place] [address] Care Team Providers Care College Or University Faculty Member Name Role Phone Cosmo Hand MD Primary Care Provider +1 -[phone] Encounter Details Date Type Department Care Team (Latest Contact Info) Description 12/26/1998 Outpatient Historical [facility] Jasper Mo Jr., MD [address] [place] [address] Chronic airway obstruction, not elsewhere classified (CMS/HCC) (Primary Dx); Anemia, unspecified; Excessive menstruation Social History Tobacco Use Types Packs/Day Years Used Date Smoking Tobacco: Never Assessed Comments Unknown Sex and Gender Information Value Date Recorded Sex Assigned at Not on file Legal 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 Gender Identity Not on file Sexual Orientation Not on file documented as of this encounter Plan of Treatment Not on file documented as of this encounter Visit Diagnoses Diagnosis Chronic airway obstruction, not elsewhere classified (CMS/HCC)- Primary Chronic airway obstruction, not elsewhere classified Anemia, unspecified Excessive menstruation Excessive or frequent menstruation documented in this encounter Care Teams College Or University Faculty Member Relationship Specialty Start Date End Date Cosmo Hand MD [address] [place] [address] PCP - General Family Practice 03/27/17 documented as of this encounter
--- OUTSIDE RECORDS SUMMARY | 2024-12-01 21:54 | XMS_ITS | Encounter Summary ---
Author Organization [facility] Address [address] [place] [address] Care Team Providers Care Potter Or Ceramic Artist Name Role Phone Cosmo Hand MD Primary Care Provider +1 [phone] Encounter Details Date Type Department Care Team (Latest Contact Info) Description 02/23/2002 Outpatient Historical [facility] Jasper Mo Jr., MD [facility] [place] [address] ANEMIA NOS (Primary Dx); ENDOCARDITIS NOS; TOBACCO USE DISORDER Social History Tobacco Use Types Packs/Day Years Used Date Smoking Tobacco: Never Assessed Comments Unknown Sex and Gender Information Value Date Recorded Sex Assigned at Not on file 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 [address] [place] [address] PCP - General Family Practice 03/27/17 documented as of this encounter
--- OUTSIDE RECORDS SUMMARY | 2024-12-01 21:55 | XMS_ITS | Encounter Summary ---
Author Organization [facility] Address [address] [place] [address] Care Team Providers Care Breaker Tender Name Role Phone Cosmo Hand MD Primary Care Provider +1 -[phone] Encounter Details Date Type Department Care Team (Late st Contact Info) Description 12/31/1998 Outpatient Historical [facility] Demian Hernandez MD [address] [place] [address] Dental caries (Primary Dx) Social History Tobacco Use Types Packs/Day Years Used Date Smoking Tobacco: Never Assessed Comments Unknown Sex and Gender Information Value Date Recorded Sex Assigned at Not on file Legal 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
--- OUTSIDE RECORDS SUMMARY | 2024-12-01 21:55 | XMS_ITS | Encounter Summary ---
Author Organization [facility] Address [address] [place] [address] Care Team Providers Care Donor Relations Associate Name Role Phone Cosmo Hand MD Primary Care Provider +1 [phone] Encounter Details Date Type Department Care Team (Latest Contact Info) Description 10/24/1998 Outpatient Historical [facility] Jasper Mo Jr., MD [address] [place] [address] Bronchitis, not specified as acute or chronic (Primary Dx); Unspecified sinusitis (chronic); Depressive disorder, not elsewhere classified Social History Tobacco Use Types Packs/Day Years Used Date Smoking Tobacco: Never Assessed Comments Unknown Sex and Gender Information Value Date Recorded Sex Assigned at Not on file Legal Sex Female 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
--- OUTSIDE RECORDS SUMMARY | 2024-12-01 21:55 | XMS_ITS | Encounter Summary ---
Author Organization [facility] Address [address] [place] [address] Care Team Providers Care Tool Straightener Name Role Phone Cosmo Hand MD Primary Care Provider +1 -[phone] Encounter Details Date Type Department Care Team (Latest Contact Info) Description 04/05/1998 Outpatient Historical [facility] Bhargav Velez MD NO ADDRESS ON FILE Acquired spondylolisthesis (Primary Dx); Backache, unspecified Social History Tobacco Use Types Packs/Day Years Used Date Smoking Tobacco: Never Assessed Comments Unknown Sex and Gender Information Value Date Recorded Sex Assigned at Not on file Legal Sex Female 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
--- OUTSIDE RECORDS SUMMARY | 2024-12-01 21:55 | XMS_ITS | Encounter Summary ---
Author Organization [facility] Address [address] [place] [address] Care Team Providers Care Brass Cleaner Name Role Phone Cosmo Hand MD Primary Care Provider +1 -[phone] Encounter Details Date Type Department Care Team (Late st Contact Info) Description 06/28/1998 Outpatient [facility] [address] [facility] [address] [place] [address] Social History Tobacco Use Types Packs/Day Years Used Date Smoking Tobacco: Never Assessed Comments Unknown Sex and Gender Information Value Date Recorded Sex Assigned at Not on file Legal Sex Female 6:26 AM OUTBOUND SALES AGENT Gender Identity Not on file Sexual Orientation Not on file documented as of this encounter Plan of Treatment Not on file documented as of this encounter Visit Diagnoses Not on filedocumented in this encounter Care Teams Brass Cleaner Relationship Specialty Start Date End Date Cosmo Hand MD [address] [place] [address] PCP - General Family Practice 03/27/17 documented as of this encounter
--- OUTSIDE RECORDS SUMMARY | 2024-12-01 21:55 | XMS_ITS | Encounter Summary ---
Author Organization [facility] Address [address] [place] [address] Care Team Providers Care Crystal Calibrator Name Role Phone Cosmo Hand MD Primary Care Provider +1 -[phone] Encounter Details Date Type Department Care Team (Latest Contact Info) Description 06/06/1998 Outpatient Historical [facility] Jasper Mo Jr., MD [address] [place] [address] Routine medical exam (Primary Dx); Excessive menstruation; Lumbago; Contact dermatitis and other eczema due to other specified agent Social History Tobacco Use Types Packs/Day Years Used Date Smoking Tobacco: Never Assessed Comments Unknown Sex and Gender Information Value Date Recorded Sex Assigned at Not on file Legal 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 Gender Identity Not on file Sexual Orientation Not on file documented as of this encounter Plan of Treatment Not on file documented as of this encounter Visit Diagnoses Diagnosis Routine medical exam- Primary Routine general medical examination at a health care facility Excessive menstruation Excessive or frequent menstruation Lumbago Contact dermatitis and other eczema due to other specified agent documented in this encounter Care Teams Crystal Calibrator Relationship Specialty Start Date End Date Cosmo Hand MD [address] [facility] [address] [place] [address] PCP - General Family Practice 03/27/17 documented as of this encounter
--- OUTSIDE RECORDS SUMMARY | 2024-12-01 21:55 | XMS_ITS | Encounter Summary ---
Author Organization [facility] Address [address] [place] [address] Care Team Providers Care Manager Shift Name Role Phone Cosmo Hand MD Primary Care Provider +1 -[phone] Encounter Details Date Type Department Care Team (Latest Contact Info) Description 09/13/1998 Outpatient Historical [facility] Jasper Mo Jr., MD [address] [place] [address] Unspecified sleep apnea (Primary Dx); General symptoms NEC; Wheezing Social History Tobacco Use Types Packs/Day Years Used Date Smoking Tobacco: Never Assessed Comments Unknown Sex and Gender Information Value Date Recorded Sex Assigned at Not on file Legal Sex Female 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
--- OUTSIDE RECORDS SUMMARY | 2024-12-01 21:55 | XMS_ITS | Encounter Summary ---
Author Organization [facility] Address [address] [place] [address] Care Team Providers Care Care Companion Name Role Phone Cosmo Hand MD Primary Care Provider +1 -[phone] Encounter Details Date Type Department Care Team (Latest Contact Info) Description 11/23/1998 Outpatient Historical [facility] Jasper Mo Jr., MD [address] [place] [address] Acute sinusitis, unspecified (Primary Dx); Solitary cyst of breast Social History Tobacco Use Types Packs/Day Years Used Date Smoking Tobacco: Never Assessed Comments Unknown Sex and Gender Information Value Date Recorded Sex Assigned at Not on file Legal Sex Female 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
--- OUTSIDE RECORDS SUMMARY | 2024-12-01 21:55 | XMS_ITS | Encounter Summary ---
Author Organization [facility] Address [address] [place] [address] Care Team Providers Care Data Examination Clerk Name Role Phone Cosmo Hand MD Primary Care Provider +1 -[phone] Encounter Details Date Type Department Care Team (Latest Contact Info) Description 12/13/1997 Outpatient Historical [facility] Jasper Mo Jr., MD 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 Gender Identity Not on file Sexual Orientation Not on file documented as of this encounter Plan of Treatment Not on file documented as of this encounter Visit Diagnoses Diagnosis Chronic airway obstruction, not elsewhere classified (CMS/HCC)- Primary Chronic airway obstruction, not elsewhere classified Headache(784.0) Headache Sebaceous cyst Need vaccination-viral disease Need for prophylactic vaccination and inoculation against other viral diseases documented in this encounter Care Teams Data Examination Clerk Relationship Specialty Start Date End Date Cosmo Hand MD [address] [place] [address] PCP - General Family Practice 03/27/17 documented as of this encounter
--- OUTSIDE RECORDS SUMMARY | 2024-12-01 21:55 | XMS_ITS | Encounter Summary ---
Author Organization [facility] Address [address] [place] [address] Care Team Providers Care Director Business Name Role Phone Cosmo Hand MD Primary Care Provider +1 -[phone] Encounter Details Date Type Department Care Team (Latest Contact Info) Description 01/05/1998 Outpatient Historical [facility] Bhargav Velez MD NO ADDRESS ON FILE Acquired spondylolisthesis (Primary Dx) Social History Tobacco Use Types Packs/Day Years Used Date Smoking Tobacco: Never Assessed Comments Unknown Sex and Gender Information Value Date Recorded Sex Assigned at Not on file Legal Sex Female 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
--- OUTSIDE RECORDS SUMMARY | 2024-12-01 21:55 | XMS_ITS | Encounter Summary ---
Author Organization [facility] Address [address] [place] [address] Care Team Providers Care Security Threat Analyst Name Role Phone Cosmo Hand MD Primary Care Provider +1 -[phone] Encounter Details Date Type Department Care Team (Latest Contact Info) Description 06/28/1998 Outpatient Historical [facility] Bhargav Velez MD NO ADDRESS ON FILE Backache, unspecified (Primary Dx); Pain in joint, lower leg; Acquired spondylolisthesis Social History Tobacco Use Types Packs/Day Years Used Date Smoking Tobacco: Never Assessed Comments Unknown Sex and Gender Information Value Date Recorded Sex Assigned at Not on file Legal Sex Female 6: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
--- OUTSIDE RECORDS SUMMARY | 2024-12-01 21:55 | XMS_ITS | Encounter Summary ---
Author Organization [facility] Address [address] [place] [address] Care Team Providers Care Science Writer Name Role Phone Cosmo Hand MD Primary Care Provider +1 -[phone] Encounter Details Date Type Department Care Team (Latest Contact Info) Description 02/21/1998 Outpatient Historical [facility] Jasper Mo Jr., MD [address] [place] [address] Bronchitis, not specified as acute or chronic (Primary Dx); Chronic airway obstruction, not elsewhere classified (CMS/HCC); Depressive disorder, not elsewhere classified Social History Tobacco Use Types Packs/Day Years Used Date Smoking Tobacco: Never Assessed Comments Unknown Sex and Gender Information Value Date Recorded Sex Assigned at Not on file Legal Sex Female 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 Gender Identity Not on file Sexual Orientation Not on file documented as of this encounter Plan of Treatment Not on file documented as of this encounter Visit Diagnoses Diagnosis Bronchitis, not specified as acute or chronic- Primary Chronic airway obstruction, not elsewhere classified (CMS/HCC) Chronic airway obstruction, not elsewhere classified Depressive disorder, not elsewhere classified documented in this encounter Care Teams Science Writer Relationship Specialty Start Date End Date Cosmo Hand MD [address] [facility] [address] [place] [address] PCP - General Family Practice 03/27/17 documented as of this encounter
--- OUTSIDE RECORDS SUMMARY | 2024-12-01 21:55 | XMS_ITS | Encounter Summary ---
Author Organization [facility] Address [address] [place] [address] Care Team Providers Care Black Studies Professor Name Role Phone Cosmo Hand MD Primary Care Provider [phone] Encounter Details Date Type Department Care Team (Latest Contact Info) Description 04/23/1998 Outpatient Historical [facility] Jasper Mo Jr., MD [address] [place] [address] Excessive menstruation (Primary Dx); Acute upper respiratory infections of unspecified site; Lumbago Social History Tobacco Use Types Packs/Day Years Used Date Smoking Tobacco: Never Assessed Comments Unknown Sex and Gender Information Value Date Recorded Sex Assigned at Not on file Legal Sex Female 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
--- NOTE | 2024-12-01 22:00 | W.ED.CHESTPA ---
HPI - Chest Pain General: Chief Complaint: Chest Pain Stated Complaint: sob, cp Source: patient and EMS Mode of arrival: EMS Limitations: no limitations History of Present Illness: 64-year-old female states that she been having shortness of breath over the last week. Does have a history of COPD states she saw her PCP on Thursday and was started on a steroid states tonight she did start having some right sided chest pain that was sharp in nature along with some shortness of breath and feeling lightheaded. States its improved pain is currently a 2 out of 10. She denies any worsening improving factors denies any vomiting or diarrhea pulse ox here is normal. Associated symptoms: Reports dyspnea Related Data Home Medications ?Medication ?Instructions ?Recorded ?Confirmed albuterol sulfate 90 mcg/actuation g inhalation 08/24/22 08/24/22 aerosol inhaler (Ventolin HFA) cetirizine 10 mg tablet ea PO 08/24/22 08/24/22 fluticasone propionate 50 g intranasal 08/24/22 08/24/22 mcg/actuation nasal spray,suspension levothyroxine 25 mcg tablet ea PO 08/24/22 08/24/22 mometasone-formoterol HFA 100 g inhalation 08/24/22 08/24/22 mcg-5 mcg/actuation aerosol inhaler (Dulera) montelukast 10 mg tablet ea PO 08/24/22 08/24/22 omeprazole 20 mg capsule,delayed ea PO 08/24/22 08/24/22 release Previous Rx's ?Medication ?Instructions ?Recorded cephalexin 500 mg capsule 500 mg PO Q6H 7 days #28 caps 08/24/22 Allergies Allergy/AdvReac Type Severity Reaction Status Date / Time amoxicillin Allergy ADR-Vomitin Verified 08/24/22 11:24 g Review of Systems Card: Reports: chest pain Resp: Reports: dyspnea Physical Exam Const: COMMON NORMALS: no acute distress, patient oriented x3 and healthy appearing HENMT: COMMON NORMALS: normocephalic and atraumatic HEAD & SCALP: normocephalic and atraumatic Eye: COMMON NORMALS: conjunctivae normal CONJUNCTIVA: Yes conjunctivae normal Neck/C-Spine: COMMON NORMALS: full ROM and supple Chest: COMMONS NORMALS: normal inspection of the chest Resp: COMMON NORMALS: normal respiratory effort, No retractions, No use of accessory muscles and clear to auscultation bilaterally AUSCULTATION: clear to auscultation bilaterally Cardio: COMMON NORMALS: regular rhythm RATE: tachycardic RHYTHM: regular rhythm GI: COMMON NORMALS: Normal to inspection, nondistended, normoactive bowel sounds present, Soft to palpation, non-tender and no masses PALPATION: Yes Soft to palpation OTHER: Rectal exam shows small amount of slightly dark stool that is Hemoccult positive Extremity: COMMON NORMALS: normal to inspection and full ROM Neuro: COMMON NORMALS: patient oriented x3, moves all extremities and no focal motor deficits Psych: COMMON NORMALS: mental status grossly normal, Normal thought process present and cooperative THOUGHT PROCESS: Normal thought process present Skin: COMMON NORMALS: no rashes or lesions noted and no wounds GENERAL SKIN EXAM: no rashes or lesions noted Course Vital Signs: Vital signs: Vital Signs Temperature 97.8 F 12/02/24 00:15 Pulse Rate 88 12/02/24 00:15 Respiratory Rate 18 12/01/24 23:44 Blood Pressure 87/52 12/02/24 00:15 Pulse Oximetry 100 12/02/24 00:15 Oxygen Delivery Me thod Room Air 12/01/24 22:13 MDM - Chest Pain Medical Decision Making Patient presents for dyspnea along with some right-sided chest pain along with near syncope and weakness. Differential included pulmonary embolism, ACS, anemia, arrhythmia. Patient's D-dimer is negative no signs of pulmonary embolism to her troponin went down and her chest pain is atypical do not believe it is ACS. Patient is quite anemic here rectal exam did show some dark stool that was Hemoccult positive patient likely has an upper GI bleed causing her anemia and her symptoms. Patient was given Protonix here along with IV antibiotics and fluid and blood products. Patient was given IV Protonix here as well. I spoke to hospitalist Dr. Marlow who is admitting to ICU at this time. Medical Records I reviewed the patient's medical records. Lab Data I reviewed the patient's lab results. 12/01/24 22:15 12/01/24 22:00 Radiology Impressions Chest X-Ray 12/01/24 21:41 IMPRESSION: No acute findings. Chest/Abdomen/Pelvis CT 12/01/24 22:59 IMPRESSION: No findings present to suggest acute cardiopulmonary process No acute or chronic pulmonary embolism No aneurysm or dissection Dense coarse calcification along the aortic valve for evaluation recommended in this regard incidental finding. Findings suggest gastroesophageal reflux IMPRESSION: No acute localizing from other abnormalities present abdominal pelvis No findings to suggest abdominal aortic aneurysm or dissection. Laboratory Results WBC 23.27 10^3/uL (3.29-11.43) H 12/01/24 22:00 RBC 1.74 10^6/uL (3.85-5.65) L 12/01/24 22:00 Hgb 4.10 g/dL (11.27-16.99) L* 12/01/24:15 Hct 13.8 % (36-47) L* 12/01/24:15 MCV 75.3 fl (85-98) L 12/01/24 22:00 MCH 21.8 pg (27-33) L 12/01/24 22:00 MCHC 29.0 g/dL (30-55) L 12/01/24 22:00 RDW 18.6 % (12.1-15.1) H 12/01/24 22:00 Plt Count 350 10^3/cmm (157-399) 12/01/24 22:00 MPV 10.1 fL (7.4-10.4) 12/01/24 22:00 Neut % (Auto) 83.0 % 12/01/24 22:00 Lymph % (Auto) 10.9 % 12/01/24 22:00 [place] % (Auto) 3.4 % 12/01/24 22:00 Eos % (Auto) 0.0 % 12/01/24 22:00 Baso % (Auto) 0.2 % 12/01/24 22:00 Neut # (Auto) 19.33 10^3/uL (1.8-7.7) H 12/01/24 22:00 Lymph # (Auto) 2.5 10^3/uL (0.8-4.8) 12/01/24 22:00 [place] # (Auto) 0.8 10^3/uL (0.2-0.9) 12/01/24 22:00 Eos # (Auto) 0.0 10^3/uL (0.0-0.8) 12/01/24 22:00 Baso # (Auto) 0.0 10^3/uL (0.0-0.1) 12/01/24 22:00 Nucleated RBC % (auto) 0.5 % 12/01/24 22:00 Nucleated RBCs # 0.1 /100WBC 12/01/24 22:00 PT 14.40 SECONDS (12.1-14.9) 12/01/24 22:00 INR 1.05 (0.8-1.2) 12/01/24 22:00 D-Dimer <= 0.27 ug/mLFEU (0-0.59) 12/01/24 22:00 Specimen Type Arterial 12/01/24: Sample Site Radial, left 12/01/24: ABG pH 7.43 (7.35-7.45) 12/01/24: ABG pCO2 25.1 mmHg (35-45) L 12/01/24: ABG pO2 106.0 mmHg (80.0-100.0) H 12/01/24: ABG PO2/FiO2 Ratio 504 12/01/24: ABG HCO3 16.7 mmol/L (22-26) L 12/01/24: ABG O2 Saturation > 99.1 12/01/24: ABG Base Excess -7.3 mmol/L (-2.0-2.0) L 12/01/24: Scooby Test Pos 12/01/24: A-a O2 Gradient 1.3 mmHg (5-10) L 12/01/24: Hematocrit 10.7 % (37-47) L 12/01/24: Hgb O2 Saturation 98.0 % (95-100) 12/01/24: Carboxyhemoglobin 1.6 %THgb (0.4-20.1) 12/01/24: Methemoglobin 0.4 % (0.4-1.5) 12/01/24: Total Hemoglobin < 5.0 g/dL (12-16) L 12/01/24 23: Sodium 135.0 mmol/L (131-143) 12/01/24 23: Potassium 3.5 mmol/L (3.5-5.0) 12/01/24 23:29 Glucose 124.0 mg/dL (70-115) H 12/01/24 23:29 Ionized Calcium 1.2 mmol/L (1.1-1.4) 12/01/24 23:29 O2 Delivery Device Room air 12/01/24 23:29 FiO2 21.0 % 12/01/24 23:29 Braider Tender ID [email or web address] 12/01/24 23:29 Sodium 138 mmol/L (136-145) 12/01/24 22:00 Potassium 3.3 mmol/L (3.5-5.1) L 12/01/24 22:00 Chloride 108 mmol/L (98-107) H 12/01/24 22:00 Carbon Dioxide 13 mmol/L (22-29) L 12/01/24 22:00 Anion Gap 20.3 (5-19) H 12/01/24 22:00 BUN 20 mg/dL (8-23) 12/01/24 22:00 Creatinine 0.6 mg/dL (0.5-0.9) 12/01/24 22:00 GFR Calculation 100.0 mL/min (90-130) 12/01/24 22:00 Glucose 134 mg/dL (65-115) H 12/01/24 22:00 Calculated Osmolality 291 mOsm/kg (285-295) 12/01/24 22:00 Lactic Acid 4.8 mmol/L (0.5-2.2) H* 12/01/24 22:00 Calcium 7.2 mg/dL (8.5-10.5) L 12/01/24 22:00 Total Bilirubin 0.2 mg/dL (0.15-1.2) 12/01/24 22:00 AST 8 U/L (0-32) 12/01/24 22:00 ALT 6 U/L (0-33) 12/01/24 22:00 Alkaline Phosphatase 56 U/L (35-105) 12/01/24 22:00 Troponin T Baseline 50 ng/L (0-10) H 12/01/24 22:00 Troponin T 120 Minute 47.72 ng/L (0-10) H 12/02/24 00:00 Delta Troponin T -2.28 ABS# (0-10) L 12/02/24 00:00 NT-Pro-B Natriuret Pep 369 pg/mL (0-125) H 12/01/24 22:00 Total Protein 4.8 g/dL (6.6-8.7) L 12/01/24 22:00 Albumin 3.2 g/dL (3.5-5.2) L 12/01/24 22:00 Globulin 1.6 g/dL (1.3-4.6) 12/01/24 22:00 Blood Type A Positive 12/01/24 22:11 Rho(D) Type Rh positive 12/01/24 22:11 Antibody Screen Negative 12/01/24 22:11 Crossmatch See Detail 12/01/24 22:11 All radiology interpretation(s) finalized by discharge EKG Data EKG 1: I personally reviewed and interpreted this EKG as follows: EKG interpretation date: 12/01/24 EKG interpretation time: 21:47 Interpretation: sinus tach hr [address] elevation qrs 69 qtc 360 Critical Care Time Critical Care Time: Critical Care Time: Yes Total Critical Care Time: 45 Attestation: The high probability of a clinically significant, sudden or life threatening deterioration of the patient's gi system(s) required my full and direct attention, intervention and personal management. The critical care time is as shown. This time is in addition to time spent performing any reported procedures but includes the following: [x] Data and vital sign review and interpretation [x] Patient assessment, examination and intervention [x] Documentation [x] Medication orders and management Discharge Plan Discharge Patient Disposition: Admitted As Inpatient Admit Provider: Ayah Marlow Clinical Impression: Acute upper GI bleed, Anemia, Dyspnea Condition: Stable Coding Level of Care Code ED Record Tabulating Clerk for Chg Fwd Heart Score HEART Score Components History: Slightly Suspicous EKG: Normal Age: Less than 45 yrs Risk Factors: 1 or 2 Risk Factors Troponin: Baseline Trop >45 ng/L HEART Score RESULT HEART Score: 3
[2024-12-01 22:06] LABS: Mean Corpuscular HGB Conc 29.0 g/dL (30-55); Mean Corpuscular Hemoglobin 21.8 pg (27-33); Mean Corpuscular Volume 75.3 fl (85-98); Nucleated Red Blood Cells % 0.5 %; Platelet Count 350 10^3/cmm (157-399); Red Blood Count 1.74 10^6/uL (3.85-5.65); White Blood Count 23.27 10^3/uL (3.29-11.43)
[2024-12-01 22:13] VITALS: BP 109/56; PULSE 112; O2SAT 100
[2024-12-01 22:13] LABS: Hematocrit 13.1 % (36-47); Hemoglobin 3.80 g/dL (11.27-16.99)
[2024-12-01 22:19] LABS: Hematocrit 13.8 % (36-47); Hemoglobin 4.10 g/dL (11.27-16.99)
[2024-12-01 22:27] LABS: INR 1.05 (0.8-1.2); Prothrombin Time 14.40 SECONDS (12.1-14.9)
[2024-12-01 22:31] LABS: Troponin(5th) Baseline 50 ng/L (0-10)
[2024-12-01 22:41] LABS: Alanine Aminotransferase 6 U/L (0-33); Albumin Level 3.2 g/dL (3.5-5.2); Alkaline Phosphatase 56 U/L (35-105); Anion Gap 20.3 (5-19); Aspartate Amino Transferase 8 U/L (0-32); Blood Urea Nitrogen 20 mg/dL (8-23); Calcium 7.2 mg/dL (8.5-10.5); Carbon Dioxide 13 mmol/L (22-29); Chloride 108 mmol/L (98-107); Globulin 1.6 g/dL (1.3-4.6); Glucose 134 mg/dL (65-115); NT Pro B Type Natriuretic Pept 369 pg/mL (0-125); Osmolality Calculated 291 mOsm/kg (285-295); Potassium 3.3 mmol/L (3.5-5.1); Sodium 138 mmol/L (136-145); Total Protein 4.8 g/dL (6.6-8.7)
--- NOTE | 2024-12-01 22:59 | CTR_ITS ---
PROCEDURE INFORMATION: Exam: CTA Chest With Contrast Exam date and time: 12/01/2024 11:08 PM Age: 64 years old Clinical indication: Pain; Angina pectoris; Additional info: Anemia, decreased bicarb possible acidemia pending labs, reported labs concerning, TECHNIQUE: Imaging protocol: Computed tomographic angiography of the chest with contrast. Exam focused on the arteries. 3D rendering (Not supervised by radiologist): MIP and/or 3D reconstructed images were created by the technologist. Radiation optimization: All CT scans at this facility use at least one of these dose optimization techniques: automated exposure control; mA and/or kV adjustment per patient size (includes targeted exams where dose is matched to clinical indication); or iterative reconstruction. Contrast material: OMNI 350; Contrast volume: 100 ml; Contrast route: INTRAVENOUS (IV); COMPARISON: CR (CHEST, ) 12/01/2024 10:01 PM RADIATION DOSE METRICS: Total DLP (mGy-cm): 1049.74 FINDINGS: Pulmonary arteries: There is no acute or chronic pulmonary embolism. Aorta: Unremarkable. No aortic aneurysm. No aortic dissection. Lungs: There are hypoventilatory changes present dependent lungs. No consolidations. Calcified granuloma present right middle lobe Pleural spaces: Unremarkable. No pneumothorax. No pleural effusion. Heart: There is dense calcification of the aortic valve further evaluation in this regard recommended Esophagus: There is air-fluid levels within mildly distended esophagus may suggest gastroesophageal reflux. Lymph nodes: Unremarkable. No enlarged lymph nodes. Bones/joints: Unremarkable. No acute fracture. Soft tissues: Unremarkable. Other findings: There is no demonstration of aneurysm or dissection. PROCEDURE INFORMATION: Exam: CT Abdomen And Pelvis With Contrast Exam date and time: 12/01/2024 11:08 PM Age: 64 years old Clinical indication: Pain; Angina pectoris; Additional info: Anemia, decreased bicarb possible acidemia pending labs, reported labs concerning, TECHNIQUE: Imaging protocol: Computed tomography of the abdomen and pelvis with contrast. Radiation optimization: All CT scans at this facility use at least one of these dose optimization techniques: automated exposure control; mA and/or kV adjustment per patient size (includes targeted exams where dose is matched to clinical indication); or iterative reconstruction. Contrast material: OMNI 350; Contrast volume: 100 ml; Contrast route: INTRAVENOUS (IV); COMPARISON: CR (CHEST, ) 12/01/2024 10:01 PM RADIATION DOSE METRICS: Total DLP (mGy-cm): 1049.74 FINDINGS: Liver: Unremarkable. No mass. Gallbladder and biliary ducts: Unremarkable. No calcified stones. No ductal dilation. Pancreas: Unremarkable. No ductal dilation. Spleen: Calcified granulomas present in the spleen. Adrenal glands: Normal. No mass. Kidneys and ureters: Unremarkable. No hydronephrosis. Stomach and bowel: There is presence of colonic diverticulosis with thickening of the colon correlate to exclude colitis. Appendix: The appendix is normal in was visualized Intraperitoneal space: There is no intra abdominopelvic free air or free fluid present. Vasculature: There is no abdominal aortic aneurysm or dissection Lymph nodes: Unremarkable. No enlarged lymph nodes. Urinary bladder: Unremarkable as visualized. Reproductive: Unremarkable as visualized. Bones/joints: Unremarkable. No acute fracture. Soft tissues: Unremarkable. CT/CT angio chest w abd pel w con IMPRESSION: No findings present to suggest acute cardiopulmonary process No acute or chronic pulmonary embolism No aneurysm or dissection Dense coarse calcification along the aortic valve for evaluation recommended in this regard incidental finding. Findings suggest gastroesophageal reflux IMPRESSION: No acute localizing from other abnormalities present abdominal pelvis No findings to suggest abdominal aortic aneurysm or dissection.
[2024-12-01 23:08] LABS: Lactic Sepsis W/Reflex 4.8 mmol/L (0.5-2.2)
[2024-12-01 23:41] LABS: ABG PCO2 25.1 mmHg (35-45); ABG PH Result 7.43 (7.35-7.45); Alveolar-Arterial Oxygen Gradi 1.3 mmHg (5-10); Arterial Blood Gas Hematocrit 10.7 % (37-47); Blood Gas Allen Test Pos; Blood Gas Operator Identificat gerca; Blood Gas Sample Site Radial, left; Blood Gas Sample Type Arterial; Carboxyhemoglobin 1.6 %THgb (0.4-20.1); Glucose Level-ABG 124.0 mg/dL (70-115); HCO3 ABG 16.7 mmol/L (22-26); Ionized Calcium Level - ABG 1.2 mmol/L (1.1-1.4); Methemoglobin 0.4 % (0.4-1.5); Oxygen Saturation ABG > 99.1; PO2 ABG 106.0 mmHg (80.0-100.0); PO2 FiO2 Ratio Arterial Blood 504; Potassium Level - ABG 3.5 mmol/L (3.5-5.0); Sodium Level - ABG 135.0 mmol/L (131-143)
--- NOTE | 2024-12-01 23:41 | ECG_ITS ---
[facility] [place] [place] [facility] Date: 2024-12-02 Pat Name: Deyanira Colin Department: Room: [facility] Gender: Female Internist: : 1960 Requested By: Esdras Collazo Order Number: [id number] Gary MD: Thaddeus Levi M.D. Measurements Intervals [place] Rate: 95 P: 51 ME: 152 QRS: 19 QRSD: 68 T: 30 QT: 333 QTc: 419 Interpretive Statements SINUS RHYTHM MODERATE ST DEPRESSION [0.05+ mV ST DEPRESSION] Compared to ECG 12/01/2024 21:47:51 Sinus tachycardia no longer present ST (T wave) deviation still present Electronically Signed On 12-03-2024 12:08:55 CDT by Thaddeus Levi M.D. [email or web address]
[2024-12-01 23:44] VITALS: BP 101/55; PULSE 94; RESP 18; TEMP 36.9; O2SAT 100
[2024-12-01] MEDS: cefTRIAXone 1,000 mg SDV 1000 MG IVP (23:51)
--- NOTE | 2024-12-01 23:53 | PM.HP ---
Providers/Chief Complaint Admitting Physician: Ayah Marlow MD Primary Care Provider: Angela Cooper Chief Complaint: sob, cp History of Present Illness As per the previous notes and the patient: Deyanira Colin is a 64 year old female with no previous frequent ED visits, COPD/asthma, hypothyroidism? in the documents but pt did not mention about it, chronic NSAIDs use from many years takes 4-5 every week due to chronic back pain, presented with shortness of breath and found to have severe anemia around 4. sob was not related to exertion or any LLE. no chest pain, orthopnea or PND. no skin rash or any hives. no recent joint swellings. No recent weight loss or leg swellings. No night sweats or fevers. In the ER, She was started on blood transfusion. Her lactate was high. CT scanning with contrast of chest abdomen and pelvis was done and did not show any signs of ischemia. D-dimers were not high. The patient vitals were stable. Patient had a large bowel motion in the ER and it was black tarry stool. Surgery was consulted and she is n.p.o. for possible endoscopy tomorrow. Review of Systems General: Reports: 10 or more systems reviewed and unremarkable except in HPI and below Medications/Allergies Home Medications ?Medication ?Instructions ?Recorded ?Confirmed ?Last Taken ?Type albuterol sulfate 90 mcg/actuation g inhalation 08/24/22 08/24/22 Unknown History aerosol inhaler (Ventolin HFA) cephalexin 500 mg capsule 500 mg PO Q6H 7 days #28 caps 08/24/22 08/24/22 Unknown Rx cetirizine 10 mg tablet ea PO 08/24/22 08/24/22 Unknown History fluticasone propionate 50 g intranasal 08/24/22 08/24/22 Unknown History mcg/actuation nasal spray,suspension levothyroxine 25 mcg tablet ea PO 08/24/22 08/24/22 Unknown History mometasone-formoterol HFA 100 g inhalation 08/24/22 08/24/22 Unknown History mcg-5 mcg/actuation aerosol inhaler (Dulera) montelukast 10 mg tablet ea PO 08/24/22 08/24/22 Unknown History omeprazole 20 mg capsule,delayed ea PO 08/24/22 08/24/22 Unknown History release Allergies Allergy/AdvReac Type Severity Reaction Status Date / Time amoxicillin Allergy ADR-Vomitin Verified 08/24/22 11:24 g Vitals/I&O/Wt Last Vital Signs Temp 98.4 F 12/01/24 23:44 Pulse 94 12/01/24 23:44 Resp 18 12/01/24 23:44 BP 101/55 12/01/24 23:44 Pulse Ox 100 12/01/24 23:44 O2 Del Method Room Air 12/01/24 22:13 12/01/24 12/01/24 12/02/24 14:59 22:59 06:59 Intake Total 0 / 0 0 / 0 Balance 0 / 0 0 / 0 Weight last 48 hrs Weight 71.214 kg Physical Exam Narrative: General: Alert and oriented, lying comfortably without any distress, pale looking HEENT: Normocephalic, atraumatic, grossly unremarkable exam Cardio: normal rate rhythm, ejection systolic murmur heard on the precordium without any radiation to the carotids, rubs, or gallops and JVD normal Respiratory: normal vascular breathing on auscultation without any wheezes, stridor, rhonchi GI: Abdomen soft, nontender, nondistended, normoactive bowel sounds present all 4 quadrants, Neuro: intact cranial nerves motor and sensory and cerebellar/coordination function without any focal neurological deficit Behavior: Appropriate and cooperative Extremities: Adequate palpable pulses,pallor positive, no cyanosis Data 12/01/24 22:15 12/01/24 22:00 A&P Assessment and plan 1. Sepsis: high WBCs, with sob lactate series fluid bolus cefepime and vancomycin MRSA swab, blood culture and urine culture monitor hemodynamics MAP target >65mmhg 2. Anemia: - severe anemia secondary to likely UGIB and underlying chronic NSAIDS use since many years, motrin for back pain. - 3-4 units to transfuse to keep the HB above 7, lasix to be given accordingly as needed 40mg iv stat after 2 units of PRBC - anemia work up - surgery on board and for endoscopy - CBC every 4 hrly - NPO - PPI iv bid - carafate q4hrly - avoid NSAIDS and blood thinners - VTE: ICDs 3. Acute upper GI bleed: as mentioned above 4. Dyspnea: - likely due to severe anemia - oxygen therapy - transfuse blood and keep hb >7 5. Chronic bronchitis: stable duonebs as needed PDMP PDMP Reviewed: Not Reviewed Attestations Medical Necessity Statement*: Deyanira Colin's hospital stay will require greater than 2 midnights for acute anemia and severe sepsis Critical Care Time: The high probability of a clinically significant, sudden or life threatening deterioration, as referenced in this documentation, required my full and direct attention, intervention and personal management. The critical care time shown is in addition to time spent performing any reported separately billable procedures and includes the following: [x] Data and vital sign review and interpretation [x] Patient assessment, examination and intervention [x] Medication orders and management [x] Patient/Family updates as able [x] Care Coordination and Documentation. Critical Care Time (min): 35 Other Attestations: Patient condition has been discussed at length with the patient/family, I have independently reviewed the chart labs imaging/diagnostics/EKG. the goals of care and code status with the patient/family/NOK/legal industrial sales representative, and documented accordingly. The patient/family has been informed about the current condition and further plan of care. Agreed with the plan of care and understood without any language barrier. Every effort was made to ensure accuracy of steamer operator. Any obvious errors or omissions should be clarified with the author of the document. Coding Level of Care Code Critical Care >/= 30 minutes Diagnoses Sepsis A41.9 Anemia D64.9 Anemia type: other cause Acute upper GI bleed K92.2 Dyspnea R06.00 Chronic bronchitis J42
[2024-12-02] VITALS (70 sets, daily range): BP systolic 87–158; BP diastolic 30–107; PULSE 72–111; RESP 13–32; TEMP 36.3–37.1; O2SAT 90–100; BMI 30.7
--- NOTE | 2024-12-02 00:22 | PC.NURSE ---
PTS BP WAS 101/55 AT THE START OF BLOOD TRANSFUSION. PTS BP IS CURRENTLY 87/52. NOTIFIED DR. OCHOA. DR. OCHOA STATED TO CONT TRANSFUSION. PT STATES SHE IS HAVING NO SYMPTOMS.
[2024-12-02 00:23] LABS: Troponin 5 2HR 47.72 ng/L (0-10)
[2024-12-02 00:25] LABS: Troponin 5 2HR Delta -2.28 ABS# (0-10)
[2024-12-02 00:39] LABS: Reflex Lactate Order REFLEX LACTIC ORDERD
[2024-12-02] MEDS: pantoprazole 40 mg SDV 80 MG IVP (00:44)
--- NOTE | 2024-12-02 00:51 | USCV_ITS ---
Deyanira Colin Age: 64 Gender: F : 1960 Exam Date: 12/02/2024 01:17 Ordering Phys: Ayah Marlow MD Technologist: RAMBO Exam Location: [facility] Indication: sob and severe COPD, history of asthma. BP: 87 / 52 HR: 98 Rhythm: Sinus Technical Quality: Adequate MEASUREMENTS (Male / Female) Normal Values 2D ECHO LV Diastolic Diameter PLAX 3.1 cm 4.2 - 5.9 / 3.9 - 5.3 cm LV Systolic Diameter PLAX 2.2 cm IVS Diastolic Thickness 1.6 cm 0.6 - 1.0 / 0.6 - 0.9 cm IVS Systolic Thickness 1.9 cm LVPW Diastolic Thickness 1.4 cm 0.6 - 1.0 / 0.6 - 0.9 cm LVPW Systolic Thickness 1.7 cm LVOT Diameter 1.9 cm LV Ejection Fraction 2D Teich 57.3 % LV Ejection Fraction MOD 4C 55.6 % LV Ejection Fraction MOD 2C 46.7 % LV Ejection Fraction 2C AL 47.9 % LA Diameter 3.0 cm Aorta at Sinotubular Diameter 2.6 cm IVC Diameter 1.5 cm M-MODE LA Ao Ratio MM 1.3 AV Cusp Separation MM 0.5 cm DOPPLER AV Peak Velocity 376.3 cm/s LVOT Peak Velocity 96.0 cm/s AV Area Cont Eq vti 0.8 cm squared AV Area Cont Eq pk 0.7 cm squared MV Peak Velocity 147.0 cm/s MV Area PHT 4.8 cm squared Mitral E to A Ratio 0.9 TV Peak E Velocity 63.0 cm/s PV Peak Velocity 107.0 cm/s FINDINGS Left Ventricle Normal left ventricular size and systolic function, EF 55-60%. No regional wall motion abnormalities. Moderate left ventricular hypertrophy. Grade 1 diastolic dysfunction Right Ventricle Normal in size and function Right Atrium Normal in size Left Atrium Normal in size IA Septum Grossly normal Mitral Valve Grossly normal. Mild mitral regurgitation Aortic Valve Aortic valve was thickened and calcified. Moderate to severe aortic stenosis with mean graient across aortic valve of 30mmHg and calculated aortic valve area of 0.74cm2. Tricuspid Valve Insufficient TR jet to calculate RVSP Pulmonic Valve Not well visualized Pericardium Normal Aorta Normal in size IVC Appears to be normal CONCLUSIONS LV systolic function is normal with EF of 55-60% Grade 1 diastolic dysfunction Moderate left ventricular hypertrophy Moderate to severe aortic stenosis Thaddeus Levi MD (Electronically Signed) Final Date: 02 December 2024 17:36 S
--- NOTE | 2024-12-02 01:24 | PC.NURSE ---
Patient arrived to ICU 9 at 0049. Oriented to room. Patient alert and oriented x3. Upon arrival patient had a bowel movement and a sample was obtained. Call light in reach. Provider to bedside.
[2024-12-02] MEDS: cefepime 2,000 mg SDV 2000 MG IVP ×3 (02:01→18:11)
[2024-12-02 02:24] LABS: Ferritin 8 ng/mL (15-150); Iron 7 ug/dL (37-145); Total Iron Binding Capacity 320 mcg/dl; Unsaturated Iron Binding 313 ug/dL (112-347)
[2024-12-02 02:39] LABS: Vitamin B12 229 pg/mL (232-1245)
[2024-12-02 03:11] LABS: Glucose Urine UA Negative (Normal); Nitrate Urine Negative (Negative)
[2024-12-02 03:16] LABS: Add Urine Microscopic? YES
[2024-12-02 03:26] LABS: Specific Gravity, Urine 1.069 (1.005-1.030)
--- NOTE | 2024-12-02 03:38 | PC.NURSE ---
Patient told this nurse she has an allergy to sulfa anitbiotics. Reaction is severe vomiting. Allergy added to patients chart and wrist band.
[2024-12-02 04:17] LABS: MRSA PCR OZH (swab) NOT DETECTED (Not Detecte)
--- NOTE | 2024-12-02 05:28 | PC.NURSE ---
Dr. Marlow notified that sodium bicarb not administered in ED. He gave orders to give bicarb due to patients bicarb being below 17. Order placed. See MAR
--- NOTE | 2024-12-02 05:39 | PC.NURSE ---
Lab notified that patients blood complete and morning labs could be drawn at 0630.
--- NOTE | 2024-12-02 05:51 | ECG_ITS ---
[facility] Date: 2024-12-02 Pat Name: Deyanira Colin Department: Room: [facility]09 Gender: Female Employment Security Officer: : 1960 Requested By: Esdras Collazo Order Number: [id number] Gary MD: Thaddeus Levi M.D. Measurements Intervals [place] Rate: 97 P: 51 CO: 158 QRS: 19 QRSD: 72 T: 38 QT: 331 QTc: 421 Interpretive Statements SINUS RHYTHM Compared to ECG 12/02/2024 02:45:40 ST (T wave) deviation no longer present Electronically Signed On 12-03-2024 12:08:53 CDT by Thaddeus Levi M.D. [email or web address] [id number]
[2024-12-02 06:49] LABS: Hemoglobin 6.70 g/dL (11.27-16.99); Mean Corpuscular HGB Conc 32.5 g/dL (30-55); Mean Corpuscular Hemoglobin 25.8 pg (27-33); Mean Corpuscular Volume 79.2 fl (85-98); Nucleated Red Blood Cells % 0.4 %; Platelet Count 248 10^3/cmm (157-399); Red Blood Count 2.60 10^6/uL (3.85-5.65); White Blood Count 19.08 10^3/uL (3.29-11.43)
[2024-12-02 06:52] LABS: Hematocrit 20.6 % (36-47)
--- NOTE | 2024-12-02 06:55 | PC.NURSE ---
Blood Dr. Marlow contacted unit; order received for an additional unit of blood to be administered.
--- NOTE | 2024-12-02 06:58 | PC.NURSE ---
Daughter, Kitten, phone number wrong in contacts. Confirmed with daughter correct number. [phone] Patient also said to list son in law, Jaguar [phone].
[2024-12-02 07:17] LABS: Troponin 5 6HR 182.6 ng/L (0-10); Troponin 5 6HR Delta 132.6 ng/L (0-12)
[2024-12-02] MEDS: iron sucrose 200 MG in sodium chloride 0.9% (100 ml) 100 ML 220 MG IV (07:41)
[2024-12-02] MEDS: sodium chloride 0.9% (100 ml) 100 ML (07:41)
--- NOTE | 2024-12-02 08:02 | PHA.VACGOAL ---
Vancomycin Goal - Goal Vancomycin Goal:: 15-20 mg/L Vancomycin Indication:: Other (Sepsis) - Therapy Current therapy:: Cefepime Day of therpy:: Day [1]of [] . Actual body weight (kg): 71.2 kg - Data Labs: WBC 19.08 10^3/uL (3.29-11.43) H 12/02/24 06:39 RBC 2.60 10^6/uL (3.85-5.65) L 12/02/24 06:39 Hgb 6.70 g/dL (11.27-16.99) L D 12/02/24 06:39 Hct 20.6 % (36-47) L* D 12/02/24 06:39 MCV 79.2 fl (85-98) L D 12/02/24 06:39 MCH 25.8 pg (27-33) L D 12/02/24 06:39 MCHC 32.5 g/dL (30-55) D 12/02/24 06:39 RDW 17.2 % (12.1-15.1) H 12/02/24 06:39 Sodium 138 mmol/L (136-145) 12/01/24 22:00 Potassium 3.3 mmol/L (3.5-5.1) L 12/01/24 22:00 Chloride 108 mmol/L (98-107) H 12/01/24 22:00 Carbon Dioxide 13 mmol/L (22-29) L 12/01/24 22:00 Anion Gap 20.3 (5-19) H 12/01/24 22:00 BUN 20 mg/dL (8-23) 12/01/24 22:00 Creatinine 0.6 mg/dL (0.5-0.9) 12/01/24 22:00 GFR Calculation 100.0 mL/min (90-130) 12/01/24 22:00 Treatment plan:: new consult Regimen:: New start vancomycin for sepsis. No prior vancomycin history found. Load dose of 1500 mg ordered overnight. Started on maintenance dose of 1000 mg q12h.
--- NOTE | 2024-12-02 08:14 | PM.CONSULT ---
Providers/Reason For Consult Consulting Physician/Specialty*: General Surgery Reason for Consult*: Upper GI bleeding Attending Physician: Ayah Marlow MD Primary Care Provider: Angela Cooper History of Present Illness History of Present Illness Deyanira Colin is a 64 year old female who presents to the ER with shortness of breath, laboratory workup shows a hemoglobin of 4, CT scan negative for pathology, Hemoccult positive. Patient states no significant abdominal pain, has not not noticed any blood in the stool. I was consulted for the possibility of an upper GI bleeding. Review of Systems General: Reports: 10 or more systems reviewed and unremarkable except in HPI and below Medications/Allergies Home Medications ?Medication ?Instructions ?Recorded ?Confirmed ?Last Taken ?Type albuterol sulfate 90 mcg/actuation g inhalation 08/24/22 08/24/22 Unknown History aerosol inhaler (Ventolin HFA) cephalexin 500 mg capsule 500 mg PO Q6H 7 days #28 caps 08/24/22 08/24/22 Unknown Rx cetirizine 10 mg tablet ea PO 08/24/22 08/24/22 Unknown History fluticasone propionate 50 g intranasal 08/24/22 08/24/22 Unknown History mcg/actuation nasal spray,suspension levothyroxine 25 mcg tablet ea PO 08/24/22 08/24/22 Unknown History mometasone-formoterol HFA 100 g inhalation 08/24/22 08/24/22 Unknown History mcg-5 mcg/actuation aerosol inhaler (Dulera) montelukast 10 mg tablet ea PO 08/24/22 08/24/22 Unknown History omeprazole 20 mg capsule,delayed ea PO 08/24/22 08/24/22 Unknown History release Allergies Allergy/AdvReac Type Severity Reaction Status Date / Time amoxicillin Allergy ADR-Vomitin Verified 08/24/22 11:24 g Sulfa (Sulfonamide Allergy ADR-Vomitin Verified 12/02/24 03:38 Antibiotics) g Current Medications Generic Name Dose Route Start Last Admin Trade Name Freq PRN Reason Stop Dose Admin Cefepime HCl 2,000 mg 12/02/24 00:45 12/02/24 02:01 Cefepime 2,000 Mg Sdv IVP 2,000 mg Q8H BERTA Administration Protocol Cyanocobalamin 1,000 mcg 12/02/24 06:10 12/02/24 07:09 Cyanocobalamin 1,000 Mcg Tablet PO 1,000 mcg DAILY BERTA Administration Folic Acid 1 mg 12/02/24 06:10 12/02/24 07:09 Folic Acid 1 Mg Tablet PO 1 mg DAILY BERTA Administration Sodium Chloride 50 ml 12/01/24 22:20 12/01/24 23:57 Sodium Chloride 0.9% 100 Ml Bag IV 12/02/24 22:20 50 ml PRN PRN Administration Blood transfusion prime and flush Sucralfate 1 gm 12/02/24 02:15 12/02/24 05:21 Sucralfate 1 Gm Tablet PO 1 gm Q4H BERTA Administration Vitals/I&O/Wt Last Vital Signs Temp 98.6 F 12/02/24 08:05 Pulse 96 12/02/24 08:05 Resp 24 H 12/02/24 08:05 BP 145/88 12/02/24 08:05 Pulse Ox 96 12/02/24 08:05 O2 Del Method Room Air 12/02/24 06:15 12/01/24 12/02/24 12/02/24 22:59 06:59 14:59 Intake Total 0 / 0 3750 / 3750 0 / 0 Output Total 250 / 250 Balance 0 / 0 3500 / 3500 0 / 0 Weight last 48 hrs Weight 156 lb 15.506 oz Weight 157 lb Weight 157 lb Physical Exam Narrative: Abdomen soft nontender nondistended. Urinary Catheter Management: Ramirez: Cath Placed During This Visit: yes Reason for Continuing Indwelling Catheter: Accurate Measurement of Urinary Output in Critically Ill Patients Urinary Catheter Date of Insertion: 12/02/24 Urinary Catheter Time of Insertion: 02:20 Data 12/02/24 06:39 12/01/24 22:00 Micro: Microbiology 12/02/24 01:12 Occult Blood (FIT) - Final Stool - Stool Aspirate 12/02/24 00:00 Blood Culture - Preliminary Blood SPECIMEN COLLECTED 12/02/24 00:00 Blood Culture - Preliminary Blood SPECIMEN COLLECTED A&P Assessment and plan 1. Acute upper GI bleed: Plan: I agree that patient most likely has upper GI bleeding due to history of chronic NSAID use. She denies any abdominal pain at the moment, has received 2 units of blood and hemoglobin has jumped up to 6, she will receive 1 more unit of blood and then will plan to proceed to the endoscopy suite for upper endoscopy. I discussed all recent benefits including the risk of perforation, need for additional interventions, need for transfer to higher level of care, inability to control bleeding, rebleeding. She shows understanding agrees to the plan PDMP PDMP Reviewed: Not Reviewed Coding Level of Care Code Acute Code for Chg Fwd Diagnoses Acute upper GI bleed K92.2
[2024-12-02 09:12] LABS: Lactic Acid level (Lactate) 1.4 mmol/L (0.5-2.2)
--- NOTE | 2024-12-02 09:14 | ECG_ITS ---
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 Measurements Intervals [place] Rate: 93 P: 52 CT: 153 QRS: 15 QRSD: 70 T: 33 QT: 334 QTc: 416 Interpretive Statements SINUS RHYTHM Compared to ECG 12/02/2024 05:51:53 No significant changes Electronically Signed On 12-03-2024 11:59:34 CDT by Thaddeus Levi M.D. [email or web address] [id number]
--- NOTE | 2024-12-02 10:21 | PM.MISC ---
Miscellaneous Note Purpose of Documentation: update on patient care Note: EGD done, no evidence of upper GI bleeding. can continue additional management per primary. will likely offer colonoscopy as outpatient.
[2024-12-02] MEDS: cyanocobalamin 1,000 mcg/mL SDV 1000 MCG IM (10:49)
[2024-12-02 10:52] LABS: Hematocrit 22.9 % (36-47); Hemoglobin 7.50 g/dL (11.27-16.99)
[2024-12-02 12:24] LABS: Thyroid Stimulating Hormone 2.84 uIU/mL (0.27-4.20)
[2024-12-02] MEDS: pantoprazole 40 mg SDV IVP (12:39)
[2024-12-02 13:06] LABS: Estmated Average Glucose 108; Hemoglobin A1C 5.4 % (4.0-6.0)
--- NOTE | 2024-12-02 13:23 | PC.NURSE ---
0725 -- Notified Dr. Arellano of elevated 6 hour troponin and current plan of care with 3rd unit of PRBC ordered and plans to take patient to GI lab for an EGD. Order given to obtain an EKG. 08 -- Notified GI lab of plans to give 3rd unit of PRBC and elevated troponin. 929 -- Dr. Cervantes to bedside, updated on patients troponin level and currently awaiting EGG and Echo results. Anesthesia consent obtained and plan discussed with patent. 1000 -- To GI lab. 1025 -- Returned from GI lab via bed. RN and Anesthesia at bedside.
--- NOTE | 2024-12-02 13:55 | PC.SOCIAL ---
IMM Updated Updated pt on IMM. No questions voiced. Provided pt a copy. Initialed, dated, & timed a copy & placed in chart.
--- NOTE | 2024-12-02 15:16 | P.PN_ITS ---
Subjective 2 Subjective: Admitted overnight. Seen after endoscopy. Patient laying comfortably in bed. Caregiver at bedside. Denies any nausea, vomiting, headache. Vitals/I&O/Wt Last Vital Signs Temp 98.1 F 12/02/24 13:08 Pulse 82 12/02/24 14:00 Resp 17 12/02/24 14:00 BP 151/90 12/02/24 14:00 Pulse Ox 98 12/02/24 14:00 O2 Del Method Room Air 12/02/24 14:00 12/02/24 12/02/24 12/02/24 06:59 14:59 22:59 Intake Total 3750 / 3750 860 / 860 Output Total 250 / 250 0 / 0 Balance 3500 / 3500 860 / 860 Weight last 48 hrs Weight 71.2 kg Weight 71.214 kg Weight 71.214 kg Physical Exam 2 Narrative: General: Alert and oriented, lying comfortably without any distress, pale looking HEENT: Normocephalic, atraumatic, grossly unremarkable exam Cardio: normal rate rhythm, ejection systolic murmur heard on the precordium without any radiation to the carotids, rubs, or gallops and JVD normal Respiratory: normal vascular breathing on auscultation without any wheezes, stridor, rhonchi GI: Abdomen soft, nontender, nondistended, normoactive bowel sounds present all 4 quadrants, Neuro: intact cranial nerves motor and sensory and cerebellar/coordination function without any focal neurological deficit Behavior: Appropriate and cooperative Extremities: Adequate palpable pulses,pallor positive, no cyanosis Urinary Catheter Management: Ramirez: Cath Placed During This Visit: yes Reason for Continuing Indwelling Catheter: Accurate Measurement of Urinary Output in Critically Ill Patients Urinary Catheter Date of Insertion: 12/02/24 Urinary Catheter Time of Insertion: 02:20 Data 12/02/24 10:47 12/01/24 22:00 Micro: Microbiology 12/02/24 01:12 Occult Blood (FIT) - Final Stool - Stool Aspirate 12/02/24 00:00 Blood Culture - Preliminary Blood SPECIMEN COLLECTED 12/02/24 00:00 Blood Culture - Preliminary Blood SPECIMEN COLLECTED A&P Assessment and plan 1. Sepsis: Follow-up culture results. MRSA swab negative. Continue with empiric cefepime. Discontinue vancomycin. Maintain mean artery pressure 65. Elevated lactic. Most likely in setting of severe anemia. Resolved for now. 2. Anemia: Severe anemia secondary to likely UGIB and underlying chronic NSAIDS use since many years, motrin for back pain. Appreciate iron panel and vitamin B12 levels. Goal hemoglobin more than 8. Transfuse accordingly. Will transfuse 1 more unit of PRBC. Monitor hemoglobin Q8 hourly. Start on IV iron supplementation. Start on vitamin B12 subcu shots.- 3-4 units to transfuse to keep the HB above 7, lasix to be given accordingly as needed 40mg iv stat after 2 units of PRBC Continue Protonix twice daily, Carafate ACHS. 3. Acute upper GI bleed: Post endoscopy. No active signs of bleeding. Patient will need a colonoscopy as an outpatient. 4. Dyspnea: Most likely in setting of acute anemia. Echocardiogram results pending. Low concerns for CHF for now. 5. Chronic bronchitis: stable duonebs as needed 6. Elevated troponin: 6-hour delta troponin of more than 130. Most likely demand ischemia though non-ST elevation [place] cannot be ruled out. Cardiology consulted. Patient does not have any active chest pain for now. Hold off on heparin drip for now given acute anemia and no active chest pain. Echocardiogram as above. Check A1c, lipid panel. Patient will most likely require Lexiscan stress test for further evaluation. Plan: Full code N.p.o., clear liquid diet if hemoglobin remained stable. Protonix for PUD prophylaxis SCD for DVT prophylaxis PDMP PDMP Reviewed: Not Reviewed Attestations 2 Medical Necessity Statement*: Requires further hospitalization for management of acute anemia requiring blood transfusion while GI bleed is ruled out, elevated troponin with concerns for non-ST elevation [place] for versus demand ischemia Critical Care Time: The high probability of a clinically significant, sudden or life threatening deterioration of the patient's [cardiac, hematological] system(s) required my full and direct attention, intervention and personal management. The critical care time is as shown. This time is in addition to time spent performing any reported procedures but includes the following: [x] Data and vital sign review and interpretation [x] Patient assessment, examination and intervention [x] Documentation [x] Medication orders and management Coding Level of Care Code Critical Care >/= 30 minutes Critical care time (in minutes): 60 The high probability of a clinically significant, sudden or life threatening deterioration, as referenced in this documentation, required my full and direct attention, intervention and personal management. The critical care time shown is in addition to time spent performing any reported separately billable procedures and includes the following: [x] Data and vital sign review and interpretation [x ] Patient assessment, examination and intervention [x] Medication orders and management [x] Patient/Family updates as able [x] Care Coordination and Documentation. Diagnoses Sepsis A41.9 Anemia D64.9 Anemia type: other cause Acute upper GI bleed K92.2 Dyspnea R06.00 Chronic bronchitis J42 Elevated troponin R79.89
[2024-12-02 17:28] LABS: Hematocrit 28.8 % (36-47); Hemoglobin 9.40 g/dL (11.27-16.99)
[2024-12-02 17:47] LABS: Troponin T (5th) Once 283 ng/L (0-10)
--- NOTE | 2024-12-02 19:25 | PM.CONSULT ---
Providers/Reason For Consult Consulting Physician/Specialty*: Salty Araiza MD Reason for Consult*: Elevated troponin Requesting Physician: Johny Arellano MD Attending Physician: Johny Arellano MD Primary Care Provider: Angela Cooper History of Present Illness History of Present Illness Deyanira Colin is a 64 year old female with a history of COPD/asthma and chronic back pain for which she takes NSAIDs 4-5 times per week. [facility], Dr. Tian in [place] for aortic valve stenosis. The patient denies any chronic shortness of breath. She is able to walk up a flight of stairs without stopping due to shortness of breath at baseline. However, the patient presented to the emergency room this admission with significant shortness of breath and was found to have a hemoglobin of 3.9. The patient had a melanotic stool in the emergency room. Minimal ST depression on EKG on my interpretation of the 4 EKGs. EGD without active bleeding. Transfused blood and hgb now improved to 9.7. SOB improved. Denies CP. Medications/Allergies Home Medications ?Medication ?Instructions ?Recorded ?Confirmed ?Last Taken ?Type cetirizine 10 mg tablet 1 ea PO DAILY 08/24/22 12/02/24 12/01/24 08:00 History omeprazole 20 mg capsule,delayed 20 ea PO QAM 08/24/22 12/02/24 12/01/24 09:00 History release albuterol sulfate 2.5 mg/3 mL 2.5 mg continuous nebulization Q4H 12/02/24 12/02/24 Unknown History (0.083 %) solution for nebulization PRN Shortness Of Breath Or Wheezing albuterol sulfate 90 mcg/actuation 2 puff inhalation Q6H PRN 12/02/24 12/02/24 Unknown History aerosol inhaler Shortness Of Breath Or Wheezing atorvastatin 20 mg tablet 20 mg PO DAILY 12/02/24 12/02/24 11/30/24 19:00 History azelastine 137 mcg (0.1 %) nasal 2 spray intranasal BID 12/02/24 12/02/24 12/01/24 08:00 History spray mometasone-formoterol HFA 200 2 puff inhalation BID 12/02/24 12/02/24 12/01/24 History mcg-5 mcg/actuation aerosol inhaler (Dulera) Allergies Allergy/AdvReac Type Severity Reaction Status Date / Time amoxicillin Allergy ADR-Vomitin Verified 08/24/22 11:24 g Sulfa (Sulfonamide Allergy ADR-Vomitin Verified 12/02/24 03:38 Antibiotics) g Current Medications Generic Name Dose Route Start Last Admin Trade Name Freq PRN Reason Stop Dose Admin Cefepime HCl 2,000 mg 12/02/24 00:45 12/02/24 18:11 Cefepime 2,000 Mg Sdv IVP 2,000 mg Q8H BERTA Administration Protocol Cyanocobalamin 1,000 mcg 12/02/24 10:40 12/02/24 10:49 Cyanocobalamin 1,000 Mcg/Ml Sdv IM 1,000 mcg DAILY BERTA Administration Folic Acid 1 mg 12/02/24 06:10 12/02/24 07:09 Folic Acid 1 Mg Tablet PO 1 mg DAILY BERTA Administration Vancomycin HCl 1,000 mg/ 250 mls @ 250 mls/hr 12/02/24 13:00 12/02/24 13:39 Sodium Chloride IV Infused Q12H BERTA Infusion Sodium Chloride 1,000 mls @ 30 mls/hr 12/02/24 10:00 12/02/24 10:35 Sodium Chloride 0.9% IV Not Given .Q24H BERTA Pantoprazole Sodium 40 mg 12/02/24 13:00 12/02/24 12:39 Pantoprazole 40 Mg Sdv IVP 40 mg Q12H BERTA Administration Sodium Chloride 50 ml 12/01/24 22:20 12/01/24 23:57 Sodium Chloride 0.9% 100 Ml Bag IV 12/02/24 22:20 50 ml PRN PRN Administration Blood transfusion prime and flush Sucralfate 1 gm 12/02/24 02:15 12/02/24 18:11 Sucralfate 1 Gm Tablet PO 1 gm Q4H BERTA Administration Vitals/I&O/Wt Last Vital Signs Temp 98.4 F 12/02/24 16:00 Pulse 93 12/02/24 19:00 Resp 20 H 12/02/24 19:00 BP 148/87 12/02/24 19:00 Pulse Ox 98 12/02/24 19:00 O2 Del Method Room Air 12/02/24 18:00 12/02/24 12/02/2412/02/25 06:59 14:59 22:59 Intake Total 3750 / 3750 1110 / 1110 1050 / 2160 Output Total 250 / 250 0 / 0 850 / 850 Balance 3500 / 3500 1110 / 1110 200 / 1310 Weight last 48 hrs Weight 156 lb 15.506 oz Weight 157 lb Weight 157 lb Physical Exam Narrative: General: In no acute distress Neck: No jugular venous distention or carotid bruits Heart: RRR 3/6 systolic murmur Lungs: Normal respiratory effort with no use of intercostal muscles, clear lungs sounds to auscultation Extremities: No lower extremity edema Neuro: Alert and oriented x 3 Urinary Catheter Management: Ramirez: Cath Placed During This Visit: yes Reason for Continuing Indwelling Catheter: Accurate Measurement of Urinary Output in Critically Ill Patients Urinary Catheter Date of Insertion: 12/02/24 Urinary Catheter Time of Insertion: 02:20 Data 12/02/24 17:18 12/01/24 22:00 Micro: Microbiology 12/02/24 01:12 Occult Blood (FIT) - Final Stool - Stool Aspirate 12/02/24 00:00 Blood Culture - Preliminary Blood SPECIMEN COLLECTED 12/02/24 00:00 Blood Culture - Preliminary Blood SPECIMEN COLLECTED Other data: Echo 12/01/24: LV systolic function is normal with EF of 55-60% Grade 1 diastolic dysfunction Moderate left ventricular hypertrophy Moderate to severe aortic stenosis A&P Assessment and plan 1. NSTEMI (non-ST elevated myocardial infarction): Type I NSTEMI, but cannot rule out underlying CAD Keep Hgb >9 no antiplatlet or anticoagulant indicated screening Lexiscan stress test on Thursday if Hgb 10 or above 2. Acute blood loss anemia: s/p blood transfusions no source of bleeding identified on EGD trend Hgb 3. Moderate to severe aortic stenosis: LVOT/AV VTI ratio 0.25, SALOMÓN 1.0 cm2 by planimetry Followed at [facility] in [place] AVR was not indicated yet due to lack of symptoms prior to the GI bleed PDMP PDMP Reviewed: Not Reviewed Coding Level of Care Code 41096 Diagnoses NSTEMI (non-ST elevated myocardial infarction) I21.4 Acute blood loss anemia D62 Moderate to severe aortic stenosis I35.0
[2024-12-02 23:21] LABS: Hematocrit 28.2 % (36-47); Hemoglobin 9.20 g/dL (11.27-16.99)
[2024-12-03] VITALS (27 sets, daily range): BP systolic 117–177; BP diastolic 66–100; PULSE 74–101; RESP 14–29; TEMP 36.6–36.9; O2SAT 95–99
[2024-12-03] MEDS: pantoprazole 40 mg SDV IVP (01:00)
[2024-12-03] MEDS: cefepime 2,000 mg SDV 2000 MG IVP ×2 (02:14→10:29)
[2024-12-03] MEDS: cyanocobalamin 1,000 mcg/mL SDV 1000 MCG IM (05:11)
[2024-12-03 06:09] LABS: Hematocrit 27.0 % (36-47); Hemoglobin 8.90 g/dL (11.27-16.99); Mean Corpuscular HGB Conc 33.0 g/dL (30-55); Mean Corpuscular Hemoglobin 25.9 pg (27-33); Mean Corpuscular Volume 78.7 fl (85-98); Nucleated Red Blood Cells % 0.8 %; Platelet Count 210 10^3/cmm (157-399); Red Blood Count 3.43 10^6/uL (3.85-5.65); White Blood Count 14.10 10^3/uL (3.29-11.43)
[2024-12-03 06:29] LABS: Alanine Aminotransferase 12 U/L (0-33); Albumin Level 3.2 g/dL (3.5-5.2); Alkaline Phosphatase 63 U/L (35-105); Anion Gap 13.7 (5-19); Aspartate Amino Transferase 13 U/L (0-32); Blood Urea Nitrogen 14 mg/dL (8-23); Calcium 8.3 mg/dL (8.5-10.5); Carbon Dioxide 21 mmol/L (22-29); Chloride 104 mmol/L (98-107); Globulin 2.2 g/dL (1.3-4.6); Glucose 87 mg/dL (65-115); Osmolality Calculated 280 mOsm/kg (285-295); Potassium 3.7 mmol/L (3.5-5.1); Sodium 135 mmol/L (136-145); Total Protein 5.4 g/dL (6.6-8.7)
[2024-12-03] MEDS: iron sucrose 200 MG in sodium chloride 0.9% (100 ml) 100 ML 220 MG IV (07:34)
[2024-12-03 07:45] LABS: Cholesterol 114 mg/dL (0-200); HDL Cholesterol 25 mg/dL (60-100); Magnesium 1.8 mg/dL (1.7-2.3); Triglycerides 176 mg/dL (0-150); VLDL Cholestrol Calculation 35 mg/dL (0-30)
--- NOTE | 2024-12-03 08:26 | P.PN_ITS ---
Subjective 2 Subjective: Has been stable overnight no abdominal pain, has had bowel movements with no evidence of blood in them. Vitals/I&O/Wt Last Vital Signs Temp 97.8 F 12/03/24 08:00 Pulse 84 12/03/24 08:00 Resp 25 H 12/03/24 08:00 BP 128/83 12/03/24 08:00 Pulse Ox 97 12/03/24 08:00 O2 Del Method Room Air 12/03/24 08:00 12/02/24 12/03/24 12/03/24 22:59 06:59 14:59 Intake Total 1050 / 2160 250 / 2410 Output Total 850 / 850 800 / 1650 Balance 200 / 1310 -550 / 760 Weight last 48 hrs Weight 160 lb 8 oz Weight 160 lb 8 oz Weight 156 lb 15.506 oz Weight 157 lb Weight 157 lb Physical Exam 2 GI: OTHER: Benign abdominal exam abdomen soft nontender nondistended. Urinary Catheter Management: Ramirez: Cath Placed During This Visit: yes Reason for Continuing Indwelling Catheter: Accurate Measurement of Urinary Output in Critically Ill Patients Urinary Catheter Date of Insertion: 12/02/24 Urinary Catheter Time of Insertion: 02:20 Data 12/03/24 05:28 12/03/24 05:28 Micro: Microbiology 12/02/24 00:00 Blood Culture - Preliminary Blood NEGATIVE TO DATE 12/02/24 00:00 Blood Culture - Preliminary Blood NEGATIVE TO DATE A&P Assessment and plan 1. Acute upper GI bleed: 2. Acute blood loss anemia: Plan: Patient showing good progression from the surgical standpoint, her upper endoscopy yesterday was negative for evidence of bleeding. Does not appear to have a lower GI bleeding based on clinical examination as well as no evidence of blood in the stool. I do agree she will benefit from a colonoscopy in the near future, this can be done as outpatient. No additional surgical intervention is suspected during this hospital stay, additional management per cardiology medical team is appreciated. PDMP PDMP Reviewed: Not Reviewed Attestations 2 Medical Necessity Statement*: Per medical team Coding Level of Care Code Acute Code for Chg Fwd Diagnoses Acute upper GI bleed K92.2 Acute blood loss anemia D62
--- NOTE | 2024-12-03 09:47 | P.PN_ITS ---
Subjective 2 Subjective: Denies SOB and CP laying in bed. Vitals/I&O/Wt Last Vital Signs Temp 97.8 F 12/03/24 08:00 Pulse 85 12/03/24 09:38 Resp 17 12/03/24 09:38 BP 128/83 12/03/24 08:00 Pulse Ox 96 12/03/24 09:38 O2 Del Method Room Air 12/03/24 09:38 12/02/24 12/03/24 12/03/24 22:59 06:59 14:59 Intake Total 1050 / 2160 250 / 2410 Output Total 850 / 850 800 / 1650 Balance 200 / 1310 -550 / 760 Weight last 48 hrs Weight 160 lb 8 oz Weight 160 lb 8 oz Weight 156 lb 15.506 oz Weight 157 lb Weight 157 lb Physical Exam 2 Narrative: General: In no acute distress Neck: No jugular venous distention or carotid bruits Heart: RRR 3/6 systolic murmur Lungs: Normal respiratory effort with no use of intercostal muscles, clear lungs sounds to auscultation Extremities: No lower extremity edema Neuro: Alert and oriented x 3 Urinary Catheter Management: Ramirez: Cath Placed During This Visit: yes Reason for Continuing Indwelling Catheter: Accurate Measurement of Urinary Output in Critically Ill Patients Urinary Catheter Date of Insertion: 12/02/24 Urinary Catheter Time of Insertion: 02:20 Data 12/03/24 05:28 12/03/24 05:28 Micro: Microbiology 12/02/24 00:00 Blood Culture - Preliminary Blood NEGATIVE TO DATE 12/02/24 00:00 Blood Culture - Preliminary Blood NEGATIVE TO DATE A&P Assessment and plan 1. NSTEMI (non-ST elevated myocardial infarction): Type II NSTEMI from demand ischemia, but cannot rule out underlying CAD Keep Hgb >9 no antiplatlet or anticoagulant indicated screening Lexiscan stress test not recommended until her Hgb is > 10 so may need to postpone stress test to be done as outpatient. 2. Acute blood loss anemia: s/p blood transfusions no source of bleeding identified on EGD trend Hgbs - hgb decreased from yesterday recommend another unit of pRBCs if Hgb trends down any further due to her cardiac condition 3. Moderate to severe aortic stenosis: LVOT/AV VTI ratio 0.25, SALOMÓN 1.0 cm2 by planimetry Followed at [facility] in [place] AVR was not indicated yet due to lack of symptoms prior to the GI bleed PDMP PDMP Reviewed: Not Reviewed Attestations 2 Medical Necessity Statement*: needs atleast another 2 nights in hospital for GI bleed and Type II NSTEMI Coding Level of Care Code 67893 Diagnoses NSTEMI (non-ST elevated myocardial infarction) I21.4 Acute blood loss anemia D62 Moderate to severe aortic stenosis I35.0
--- NOTE | 2024-12-03 14:37 | PC.NURSE ---
Ramirez discontinued, tolerated well.
[2024-12-03 15:36] LABS: Hematocrit 29.7 % (36-47); Hemoglobin 9.50 g/dL (11.27-16.99); Mean Corpuscular HGB Conc 32.0 g/dL (30-55); Mean Corpuscular Hemoglobin 26.0 pg (27-33); Mean Corpuscular Volume 81.1 fl (85-98); Nucleated Red Blood Cells % 0.4 %; Platelet Count 240 10^3/cmm (157-399); Red Blood Count 3.66 10^6/uL (3.85-5.65); White Blood Count 13.64 10^3/uL (3.29-11.43)
--- NOTE | 2024-12-03 17:59 | P.PN_ITS ---
Subjective 2 Subjective: Patient feeling markedly improved. Her daughter and close friend joinedin and aunt all questions were answered Vitals/I&O/Wt Last Vital Signs Temp 98.0 F 12/03/24 12:00 Pulse 88 12/03/24 15:57 Resp 16 12/03/24 15:45 BP 177/100 12/03/24 14:00 Pulse Ox 97 12/03/24 15:45 O2 Del Method Room Air 12/03/24 15:45 12/03/24 12/03/24 12/03/24 06:59 14:59 22:59 Intake Total 250 / 2410 860 / 860 Output Total 800 / 1650 1250 / 1250 Balance -550 / 760 -390 / -390 Weight last 48 hrs Weight 72.802 kg Weight 72.802 kg Weight 71.2 kg Weight 71.214 kg Weight 71.214 kg Physical Exam 2 Narrative: Alert and oriented in no acute distress Heart regular normal S1-S2 without loud murmur Lungs clear to auscultation without wheezes rales or rhonchi Abdomen soft nontender nondistended positive bowel sounds Extremities no clubbing cyanosis or edema Urinary Catheter Management: Ramirez: Cath Placed During This Visit: yes Reason for Continuing Indwelling Catheter: Accurate Measurement of Urinary Output in Critically Ill Patients Urinary Catheter Date of Insertion: 12/02/24 Urinary Catheter Time of Insertion: 02:20 Data 12/03/24 15:21 12/03/24 05:28 Micro: Microbiology 12/02/24 02:40 Urine Culture - Preliminary Urine,Clean Catch 12/02/24 00:00 Blood Culture - Preliminary Blood NEGATIVE TO DATE 12/02/24 00:00 Blood Culture - Preliminary Blood NEGATIVE TO DATE A&P Assessment and plan 1. Anemia: Severe anemia. Suspected UGIB due to NSAID use however EGD was negative With demand ischemia goal hemoglobin is greater than 9. Transfuse accordingly. Thus far patient has received 4 units. Start on IV iron supplementation. Start on vitamin B12 subcu shots. Vitamin B12 229 low, folate 2.9 low May DC Protonix twice daily, Carafate ACH s, as EGD was negative 2. Dyspnea: Most likely in setting of acute anemia. Resolved 3. Elevated troponin: Appreciate cardiology consultation. Most likely demand ischemia though cannot rule out CAD. Cardiology recommends hemoglobin over 9. No antiplatelet or anticoagulant indicated. Lexiscan stress test not recommended until hemoglobin over 10. This can be postponed to outpatient. Cholesterol 114, LDL 54, HDL low at 25. Triglycerides 176. Plan: Patient can be transferred to the general medical floor if bed available. Plan for outpatient colonoscopy. And as above outpatient stress test once hemoglobin maintains over 10 All of this was explained to patient her daughter and family friend all questions answered PDMP PDMP Reviewed: Not Reviewed Attestations 2 Medical Necessity Statement*: Patient requires continued hospitalization for severe anemia. Coding Level of Care Code Acute Code for Chg Fwd Diagnoses Anemia D64.9 Anemia type: other cause Dyspnea R06.00 Elevated troponin R79.89
[2024-12-03] MEDS: ATORVASTATIN 20 MG TABLET PO (20:25)
[2024-12-04] VITALS (11 sets, daily range): BP systolic 125–143; BP diastolic 70–79; PULSE 79–98; RESP 16–23; TEMP 36.8–37.1; O2SAT 95–98
--- NOTE | 2024-12-04 01:09 | PC.NURSE ---
Report called to ALLI Urbina on [facility]
[2024-12-04] MEDS: cyanocobalamin 1,000 mcg/mL SDV 1000 MCG IM (04:37)
[2024-12-04 05:52] LABS: Hematocrit 28.3 % (36-47); Hemoglobin 8.80 g/dL (11.27-16.99); Mean Corpuscular HGB Conc 31.1 g/dL (30-55); Mean Corpuscular Hemoglobin 25.5 pg (27-33); Mean Corpuscular Volume 82.0 fl (85-98); Nucleated Red Blood Cells % 0.4 %; Platelet Count 251 10^3/cmm (157-399); Red Blood Count 3.45 10^6/uL (3.85-5.65); White Blood Count 12.36 10^3/uL (3.29-11.43)
[2024-12-04] MEDS: iron sucrose 200 MG in sodium chloride 0.9% (100 ml) 100 ML 220 MG IV (08:28)
[2024-12-04 12:21] LABS: Hematocrit 28.5 % (36-47); Hemoglobin 9.10 g/dL (11.27-16.99)
--- NOTE | 2024-12-04 12:43 | PM.PN ---
Subjective Subjective: Denies CP and SOB. Vitals/I&O/Wt Last Vital Signs Temp 98.8 F 12/04/24 08:00 Pulse 98 12/04/24 11:09 Resp 16 12/04/24 11:09 BP 138/70 12/04/24 08:00 Pulse Ox 97 12/04/24 11:09 O2 Del Method Room Air 12/04/24 11:09 12/03/24 12/04/24 12/04/24 22:59 06:59 14:59 Intake Total 400 / 1260 110 / 110 Output Total 201 / 201 Balance 400 / 10 -91 / -91 Weight last 48 hrs Weight 171 lb 12.8 oz Weight 160 lb 8 oz Weight 160 lb 8 oz Physical Exam Narrative: General: In no acute distress Neck: No jugular venous distention or carotid bruits Heart: RRR 3/6 systolic murmur Lungs: Normal respiratory effort with no use of intercostal muscles, clear lungs sounds to auscultation Extremities: No lower extremity edema Neuro: Alert and oriented x 3 Urinary Catheter Management: Ramirez: Cath Placed During This Visit: yes Reason for Continuing Indwelling Catheter: Accurate Measurement of Urinary Output in Critically Ill Patients Urinary Catheter Date of Insertion: 12/02/24 Urinary Catheter Time of Insertion: 02:20 Data 12/04/24 12:13 12/03/24 05:28 Micro: Microbiology 12/02/24 02:40 Urine Culture - Final Urine,Clean Catch A&P Assessment and plan 1. NSTEMI (non-ST elevated myocardial infarction): Type II NSTEMI from demand ischemia, but cannot rule out underlying CAD Keep Hgb >9 no antiplatlet or anticoagulant indicated screening Lexiscan stress test not recommended until her Hgb is > 10 Since currently without symptoms of angina, stress test can be done as an outpatient after anemia improves further 2. Acute blood loss anemia: s/p blood transfusions no source of bleeding identified on EGD trend Hgbs - hgb stable from yesterday 3. 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 Goncalves. Will sign off. Please call with any further cardiac questions or concerns. PDMP PDMP Reviewed: Not Reviewed Attestations Medical Necessity Statement*: can be discharged from Cardiology standpoint if no further drop in Hgb Coding Level of Care Code Acute Code for Chg Fwd Diagnoses NSTEMI (non-ST elevated myocardial infarction) I21.4 Acute blood loss anemia D62 Moderate to severe aortic stenosis I35.0
--- NOTE | 2024-12-04 13:46 | P.DS_ITS ---
Discharge Providers Date of Admission: 12/02/24 00:13 Date of Discharge: December 04, 2024 Attending Provider at Admission: Ayah Marlow MD Attending Provider at Discharge: Jeff Goncalves DO Primary Care Provider: Angela Cooper Diagnoses at Discharge Discharge Diagnosis 1. NSTEMI (non-ST elevated myocardial infarction): 2. Acute blood loss anemia: 3. Moderate to severe aortic stenosis: Reason for Visit Reason for Visit: sob, cp Brief History: Deyanira Colin is a 64 year old female with history of, COPD/asthma, GERD, allergies, hyperlipidemia and moderate to severe aortic stenosis follows with cardiology in [place]. She presents with profound weakness and shortness of breath of relatively sudden onset. She was found to have severe anemia with a hemoglobin of 4. In the ER, She was started on blood transfusion. Her lactate was high. CT scanning with contrast of chest abdomen and pelvis was done and did not show any signs of ischemia. D-dimers were not high. Patient had Hemoccult positive stool. Surgery was consulted and she is n.p.o. for possible endoscopy tomorrow. Hospital Course Hospital Course Patient was admitted for severe life-threatening anemia. She was given a total of 4 units of packed red blood cells. EGD was done and was negative. She has received 3 out of 5 total doses of IV iron. Her IV infiltrated. Cardiology consult was also obtained due to elevated troponins. Patient denied chest pain to me. Cardiology recommends stress test when sustained normal hemoglobin of over 10. 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 Patient's diet was increased and she was mobilized. She is eating and drinking normally. She was able to walk the halls of the hospital which is much further than her trailer will require. Her hemoglobin is staying consistently between 8 and 9. The plan is to follow-up with outpatient surgery for colonoscopy in the next week or 2. Surgeons name and information will be given to the patient. It was also noted that patient has low B12 and folic acid. I suspect is from sustained use of a PPI. I counseled her to quit taking omeprazole and other PPIs and recommended Pepcid. She will be given information on any dietary changes that she can take to assist. In the meantime she will need to replace her B12 and folate diet recommend methylated form to be obtained and natural food store most likely. she will take iron twice a day; MiraLAX as needed Physical Exam Narrative: Alert and oriented in no acute distress Heart regular normal S1-S2 without loud murmur Lungs clear to auscultation without wheezes rales or rhonchi Abdomen soft nontender nondistended positive bowel sounds Extremities no clubbing cyanosis or edema Urinary Catheter Management: Ramirez: Cath Placed During This Visit: yes Reason for Continuing Indwelling Catheter: Accurate Measurement of Urinary Output in Critically Ill Patients Urinary Catheter Date of Insertion: 12/02/24 Urinary Catheter Time of Insertion: 02:20 Discharge Data Studies Completed and Pending Completed Studies During Hospitalization Category Date Time Status CT Angio Chest + Abdomen Pelvis w/ contrast; [id number] + Cat Scan 12/01/24 22:59 Completed [id number] Stat XR chest 1V portable [id number] Stat Exams 12/01/24 21:41 Completed CV. echo complete* [id number] Urgent Ultrasound 12/02/24 00:51 Completed Pending at discharge Category Date Time Status Blood Culture Stat Lab 12/01/24 22:49 Results Pathology: Surgical [PTH] Routine Pth 12/02/24 10:15 Received Radiology Impressions Chest X-Ray 12/01/24 21:41 IMPRESSION: No acute findings. Chest/Abdomen/Pelvis CT 12/01/24 22:59 IMPRESSION: No findings present to suggest acute cardiopulmonary process No acute or chronic pulmonary embolism No aneurysm or dissection Dense coarse calcification along the aortic valve for evaluation recommended in this regard incidental finding. Findings suggest gastroesophageal reflux IMPRESSION: No acute localizing from other abnormalities present abdominal pelvis No findings to suggest abdominal aortic aneurysm or dissection. Laboratory Results WBC 12.36 10^3/uL (3.29-11.43) H 12/04/24 05:05 RBC 3.45 10^6/uL (3.85-5.65) L 12/04/24 05:05 Hgb 9.10 g/dL (11.27-16.99) L 12/04/24 12:13 Hct 28.5 % (36-47) L 12/04/24 12:13 MCV 82.0 fl (85-98) L 12/04/24 05:05 MCH 25.5 pg (27-33) L 12/04/24 05:05 MCHC 31.1 g/dL (30-55) 12/04/24 05:05 RDW 17.7 % (12.1-15.1) H 12/04/24 05:05 Plt Count 251 10^3/cmm (157-399) 12/04/24 05:05 MPV 10.8 fL (7.4-10.4) H 12/04/24 05:05 Neut % (Auto) 67.8 % 12/04/24 05:05 Lymph % (Auto) 25.4 % 12/04/24 05:05 [place] % (Auto) 4.2 % 12/04/24 05:05 Eos % (Auto) 1.5 % 12/04/24 05:05 Baso % (Auto) 0.4 % 12/04/24 05:05 Neut # (Auto) 8.37 10^3/uL (1.8-7.7) H 12/04/24 05:05 Lymph # (Auto) 3.1 10^3/uL (0.8-4.8) 12/04/24 05:05 [place] # (Auto) 0.5 10^3/uL (0.2-0.9) 12/04/24 05:05 Eos # (Auto) 0.2 10^3/uL (0.0-0.8) 12/04/24 05:05 Baso # (Auto) 0.1 10^3/uL (0.0-0.1) 12/04/24 05:05 Nucleated RBC % (auto) 0.4 % 12/04/24 05:05 Nucleated RBCs # 0.1 /100WBC 12/04/24 05:05 PT 14.40 SECONDS (12.1-14.9) 12/01/24 22:00 INR 1.05 (0.8-1.2) 12/01/24 22:00 D-Dimer <= 0.27 ug/mLFEU (0-0.59) 12/01/24 22:00 Specimen Type Arterial 12/01/24 23:29 Sample Site Radial, left 12/01/24 23:29 ABG pH 7.43 (7.35-7.45) 12/01/24 23:29 ABG pCO2 25.1 mmHg (35-45) L 12/01/24 23:29 ABG pO2 106.0 mmHg (80.0-100.0) H 12/01/24 23:29 ABG PO2/FiO2 Ratio 504 12/01/24 23: ABG HCO3 16.7 mmol/L (22-26) L 12/01/24 23:29 ABG O2 Saturation > 99.1 12/01/24 23: ABG Base Excess -7.3 mmol/L (-2.0-2.0) L 12/01/24 23:29 Scooby Test Pos 12/01/24 23:29 A-a O2 Gradient 1.3 mmHg (5-10) L 12/01/24 23: Hematocrit 10.7 % (37-47) L 12/01/24 23: Hgb O2 Saturation 98.0 % (95-100) 12/01/24 23: Carboxyhemoglobin 1.6 %THgb (0.4-20.1) 12/01/24 23: Methemoglobin 0.4 % (0.4-1.5) 12/01/24 23: Total Hemoglobin < 5.0 g/dL (12-16) L 12/01/24 23:29 Sodium 135.0 mmol/L (131-143) 12/01/24 23:29 Potassium 3.5 mmol/L (3.5-5.0) 12/01/24 23: Glucose 124.0 mg/dL (70-115) H 12/01/24 23:29 Ionized Calcium 1.2 mmol/L (1.1-1.4) 12/01/24 23:29 O2 Delivery Device Room air 12/01/24 23:29 FiO2 21.0 % 12/01/24 23:29 Grain Oilseed Or Pasture Farm Worker ID [email or web address] 12/01/24 23:29 Sodium 135 mmol/L (136-145) L 12/03/24 05:28 Potassium 3.7 mmol/L (3.5-5.1) 12/03/24 05:28 Chloride 104 mmol/L (98-107) 12/03/24 05:28 Carbon Dioxide 21 mmol/L (22-29) L 12/03/24 05:28 Anion Gap 13.7 (5-19) 12/03/24 05:28 BUN 14 mg/dL (8-23) 12/03/24 05:28 Creatinine 0.9 mg/dL (0.5-0.9) 12/03/24 05:28 GFR Calculation 62.6 mL/min (90-130) L 12/03/24 05:28 Glucose 87 mg/dL (65-115) 12/03/24 05:28 Estimat Average Glucose 108 12/02/24 06:39 Hemoglobin A1c 5.4 % (4.0-6.0) 12/02/24 06:39 Calculated Osmolality 280 mOsm/kg (285-295) L 12/03/24 05:28 Lactic Acid 4.8 mmol/L (0.5-2.2) H* 12/01/24 22:00 Lactic Acid (Sepsis) 1.4 mmol/L (0.5-2.2) 12/02/24 Unknown Calcium 8.3 mg/dL (8.5-10.5) L 12/03/24 05:28 Magnesium 1.8 mg/dL (1.7-2.3) 12/03/24 05:28 Iron 7 ug/dL (37-145) L 12/01/24 22:00 TIBC 320 mcg/dl 12/01/24 22:00 % Saturation 2.1 % (20-50) L 12/01/24 22:00 Unsat Iron Binding 313 ug/dL (112-347) 12/01/24 22:00 Ferritin 8 ng/mL (15-150) L 12/01/24 22:00 Total Bilirubin 0.6 mg/dL (0.15-1.2) 12/03/24 05:28 AST 13 U/L (0-32) 12/03/24 05:28 ALT 12 U/L (0-33) 12/03/24 05:28 Alkaline Phosphatase 63 U/L (35-105) 12/03/24 05:28 Troponin T 5th Gen ng/L 283 ng/L (0-10) H* 12/02/24 17:18 Troponin T Baseline 50 ng/L (0-10) H 12/01/24 22:00 Troponin T 120 Minute 47.72 ng/L (0-10) H 12/02/24 00:00 Delta Troponin T -2.28 ABS# (0-10) L 12/02/24 00:00 Troponin T Hi Sens 6Hr 182.6 ng/L (0-10) H 12/02/24 06:39 Troponin T Hi Sens 6Hr Delta 132.6 ng/L (0-12) H* 12/02/24 06:39 NT-Pro-B Natriuret Pep 369 pg/mL (0-125) H 12/01/24 22:00 Total Protein 5.4 g/dL (6.6-8.7) L 12/03/24 05:28 Albumin 3.2 g/dL (3.5-5.2) L 12/03/24 05:28 Globulin 2.2 g/dL (1.3-4.6) 12/03/24 05:28 Triglycerides 176 mg/dL (0-150) H 12/03/24 05:28 Cholesterol 114 mg/dL (0-200) 12/03/24 05:28 LDL Cholesterol, Calc 54 mg/dL (50-129) 12/03/24 05:28 Total VLDL Cholesterol 35 mg/dL (0-30) H 12/03/24 05:28 HDL Cholesterol 25 mg/dL (60-100) L 12/03/24 05:28 Cholesterol/HDL Ratio 4.56 mg/dL (0.0-4.40) H 12/03/24 05:28 Vitamin B12 229 pg/mL (232-1245) L 12/01/24 22:00 Folate 6.2 ng/mL (4.8-37.3) 12/03/24 05:28 TSH 2.84 uIU/mL (0.27-4.20) 12/02/24 06:39 Urine Color Yellow (Yellow) 12/02/24 02:40 Urine Appearance Clear (CLEAR) 12/02/24 02:40 Urine pH 5.0 (5-7) 12/02/24 02:40 Ur Specific [place] 1.069 (1.005-1.030) H 12/02/24 02:40 Urine Protein Negative (Negative) 12/02/24 02:40 Urine Glucose (UA) Negative (Normal) 12/02/24 02:40 Urine Ketones Trace (Negative) 12/02/24 02:40 Urine Blood Non-haemolysed trace (Negative) 12/02/24 02:40 Urine Nitrate Negative (Negative) 12/02/24 02:40 Urine Bilirubin Negative (Negative) 12/02/24 02:40 Urine Urobilinogen 1.0 mg/dL (Negative) 12/02/24 02:40 Ur Leukocyte Esterase Trace (Negative) A 12/02/24 02:40 Urine RBC 3-5 /hpf (0-2) 12/02/24 02:40 Urine WBC 21-50 /hpf (0-5) H 12/02/24 02:40 Ur Squamous Epith Cells 0-5 /hpf (0-5) 12/02/24 02:40 Amorphous Sediment Not Reportable 12/02/24 02:40 Urine Bacteria None seen /hpf (NONE) 12/02/24 02:40 Hyaline Casts 2.05 /lpf 12/02/24 02:40 Nasal MRSA (PCR) Not detected (Not Detecte) 12/02/24 02:40 Vancomycin Trough 14.7 ug/mL (11-30) 12/03/24 11:45 Blood Type A Positive 12/01/24 22:11 Rho(D) Type Rh positive 12/01/24 22:11 Antibody Screen Negative 12/01/24 22:11 Crossmatch See Detail 12/01/24 22:11 Vitals Last Vital Signs Temp 98.8 F 12/04/24 08:00 Pulse 98 12/04/24 11:09 Resp 16 12/04/24 11:09 BP 138/70 12/04/24 08:00 Pulse Ox 97 12/04/24 11:09 O2 Del Method Room Air 12/04/24 11:09 Discharge Plan Discharge Patient Disposition: Home Condition: Stable Prescriptions: New budesonide 0.5 mg/2 mL Suspension For Nebulization 0.5 mg inhalation BID.RESPIRATORY Qty: 60 0RF folic acid 800 mcg tablet 800 mcg PO DAILY Qty: 30 0RF [id number] 5,000 mcg-1,360 mcg DFE-2.5 mg tablet,chewable 1 tab PO DAILY Qty: 30 0RF ferrous sulfate [Feosol] 325 mg (65 mg iron) tablet 325 mg PO BID Qty: 60 0RF Continued cetirizine 10 mg tablet 1 ea PO DAILY omeprazole 20 mg capsule,delayed release(DR/EC) 20 ea PO QAM albuterol sulfate 2.5 mg /3 mL (0.083 %) solution for nebulization 2.5 mg continuous nebulization Q4H PRN (Reason: Shortness Of Breath Or Wheezing) azelastine 137 mcg (0.1 %) spray,non-aerosol 2 spray INTRANASAL BID albuterol sulfate 90 mcg/actuation HFA aerosol inhaler 2 puff INHALATION Q6H PRN (Reason: Shortness Of Breath Or Wheezing) Dulera 200-5 mcg/actuation HFA aerosol inhaler 2 puff INHALATION BID Changed atorvastatin 20 mg tablet 20 mg PO BEDTIME Qty: 30 0RF Butcher Or Smallgoods Maker OK for DC: Hospitalist Other Ambulatory Orders: Complete Blood Count w/Auto (Routine) Timeframe: 1 Week Location: Determined by Patient Ordered By: Jeff Goncalves Referrals: Piter Engle MD [Physician, General Surgery] - 1-3 days Referral Note: Patient seen in the hospital. EGD performed needs colonoscopy within a week or 2 Problems: Anemia Angela Cooper FNP [Primary Care Provider, Family Practice] Discharge Diet: Advance as tolerated Discharge Activity: Increase activity as tolerated Patient Instructions: GERD (Gastroesophageal Reflux Disease) (GEN), GI Post Discharge Instructions w/ Anesthesia, Patient Portal & Darius Instructions Activity Restrictions/Additional Instructions: Recommend methylated forms of vitamin B-12 and folic acid. These are usually found in [employer] food store. Or you could order online through [employer]. Take 1 dose per day. Take iron twice a day. Note this may cause dark/black stools. It also can cause constipation. Recommend use of MiraLAX daily as needed. Discharge Attestations Time Spent in Discharge Care*: greater than 30 min Quality Metrics Clinical Quality Measures [ No reported AMI, CVA or VTE this stay] Coding Level of Care Code Acute Code for Chg Fwd Diagnoses NSTEMI (non-ST elevated myocardial infarction) I21.4 Acute blood loss anemia D62 Moderate to severe aortic stenosis I35.0
--- NOTE | 2024-12-04 17:49 | PC.NURSE ---
Discharge Patient discharged with family at bedside all belongings with her
== END 2024-12-04 17:50 | disposition home or self-care (01) | DRG 811 ==
LOC: ER 12-02 00:07 → ICU 12-02 00:13 → MEDSURG 12-04 01:13
PROVIDERS: Student in an Organized Health Care Education/Training Program; Surgery; Admitting Provider Student in an Organized Health Care Education/Training Program; Emergency Provider Emergency Medicine; PCP Nurse Practitioner Family; Visit Provider Internal Medicine
PROC: 0DJ08ZZ Inspection of Upper Intestinal Tract, Via Natural or Artificial Opening Endoscopic (ICD-10-PCS; principal; 2024-12-02 10:00)
DX: D62 Acute posthemorrhagic anemia (principal); I21.A1 Myocardial infarction type 2; K92.1 Melena; I35.0 Nonrheumatic aortic (valve) stenosis; J42 Unspecified chronic bronchitis; K21.9 Gastro-esophageal reflux disease without esophagitis
CPT/HCPCS: 36415; 36430; 36600; 51702; 71045; 71275; 74177; 80051; 80053; 80061; 80202; 81001; 82274; 82330; 82607; 82728; 82746; 82805; 83036; 83540; 83550; 83605; 83735; 83880; 84443; 84484; 85014; 85018; 85025; 85378; 85610; 86850; 86900; 86920; 87040; 87086; 88305; 88342; 93005; 93306; 94640; 96365; 96367; 96372; 96375; 99291; J0456; J0692; J0696; J1756; J2470; J2704; J3373; J3420; J7030; J7050; J7120; J7613; J7626; J9999; P9016